=== PATIENT | female | born 1940 | race Caucasian/White ===

== ENCOUNTER 2016-03-31 10:59 | Emergency (ER) | payer MEDICARE ==
[2016-03-31 11:16] VITALS: BP 117/55
[2016-03-31] MEDS ORDERED: Albuterol 2.5 MG/3 ML NEB.SOL* (0.083%) INH ONE (11:36)
--- NOTE | 2016-03-31 12:07 | RAD ---
Indication: Dyspnea. Comparison is made with previous exam dated March 19, 2013. 2 views of the chest including dual energy PA views demonstrates hyperinflated lung roberts. No evidence of alveolar consolidation is noted. Again noted is deformity of the left chest wall with old left seventh rib fracture unchanged from previous exam IMPRESSION: Hyperinflated lung roberts without evidence of active cardiopulmonary disease.
--- NOTE | 2016-03-31 13:42 | UC ---
Kike Campos Adam, scribed for Any Khan MD on 03/31/16 at 1132 . Shortness of Breath HPI - HPI Summary HPI Summary: Pt is a 75 year old female presenting with SOB. She also reports a cough with associated CP for approximately 1 week. She has a Hx of lung cancer and COPD but she is not on o2 at home. She states that she was on o2 at one point but then was able to come off of it. She also reports cough, chills and states that she has not been eating normally and has lost 7 pounds. She has been having rhinorrhea and WESLEY's behind the right eye and sometimes left eye. No epistaxis or dental pain. No CP, abdominal pain, N/V/D, dysuria, hematuria, or rashes. - History of Current Complaint Chief Complaint: UCRespiratory Stated Complaint: COUGH,FATIGUE Hx Obtained From: Patient Onset/Duration: Gradual Onset, Lasting Days, Still Present Timing: Constant Current Severity: Moderate Dyspnea At: Rest Aggrevating Factors: Nothing Alleviating Factors: Nothing Associated Signs & Symptoms: Positive: Chest Pain w/Cough - Allergy/Home Medications Allergies/Adverse Reactions: Allergies Allergy/AdvReac Type Severity Reaction Status Date / Time No Known Allergies Allergy Verified 03/19/13 18:39 Home Medications: Home Medications Omeprazole CAP* [Prilosec CAP* 20 MG] 20 mg PO DAILY 03/31/16 [History Confirmed 03/31/16] PMH/Surg Hx/FS Hx/Imm Hx Endocrine History Of: Reports: Thyroid Disease Denies: Diabetes Cardiovascular History Of: Reports: Cardiac Disorders - angina, Hypertension Respiratory History Of: Reports: COPD Denies: Asthma GI/ History Of: Denies: Ulcer Cancer History Of: Reports: Lung Cancer - Bilateral, Breast Cancer - Surgical History Surgical History: Yes Surgery Procedure, Year, and Place: BREAST SURGERY. HYSTERECTOMY. BILATERAL LOBECTOMY - Family History Known Family History: Positive: Cardiac Disease - [place], Other - Suicide - Social History Occupation: Retired Lives: With Family Alcohol Use: None Substance Use Type: None Smoking Status (MU): Former Smoker Review of Systems Constitutional: Negative Respiratory: Shortness Of Breath, Cough Cardiovascular: Chest Pain - With cough All Other Systems Reviewed And Are Negative: Yes Physical Exam Triage Information Reviewed: Yes Appearance: No Pain Distress, Well-Nourished, Other: - [place] color Vital Signs: Initial Vital Signs Temp 97.8 F 03/31/16 11:09 Pulse 77 03/31/16 11:09 Resp 24 03/31/16 11:09 BP 117/55 03/31/16 11:09 Pulse Ox 90 03/31/16 11:09 Eyes: Positive: Conjunctiva Clear, Other: - Clear corneas ENT: Positive: Pharynx normal - No purulence, Other: - Normal TM's and canals, no discharge. Negative: Pharyngeal erythema, Nasal drainage, TM red, Tonsillar swelling, Tonsillar exudate Dental Exam: Other - Upper and lower dentures. Neck: Positive: Supple, Nontender, Other: - FROM, no crepitus, no JVD, no adenopathy. Respiratory: Positive: Chest non-tender, Other: - Decreased breath sounds, right more than left. Both bases very decreased.. Negative: Rhonchi, Wheezing Cardiovascular: Positive: Other: - Systolic heart murmur, heard best from the pulmonic area. Abdomen Description: Positive: Nontender, Other: - Liver edge about 1.5 cm below right costal margin.. Negative: Bruit, CVA Tenderness (R), CVA Tenderness (L) Bowel Sounds: Positive: Present, Other: - Normoactive Musculoskeletal: Positive: Strength Intact, ROM Intact, No Edema Neurological: Positive: Alert, Muscle Tone Normal, Other: - Oriented x3. Normal DTR's and normal cranial nerves. Psychological: Positive: Normal Response To Family, Age Appropriate Behavior Skin: Negative: rashes, significant lesion(s) Diagnostics - Laboratory Diagnostic Studies Completed/Ordered: Chest X-Ray - IMPRESSION: Hyperinflated lung roberts without evidence of active cardiopulmonary disease. Re-Evaluation - Re-Evaluation First Eval Re-Evaluation Time: 12:36 Change: Improved - Marked improvement in air exchange after breathing treatment. Shortness of Breath Dx - Differential Dx/Diagnosis Provider Diagnoses: COPD exacerbation Discharge - Discharge Plan Condition: Stable Disposition: HOME Prescriptions: Cefdinir 300 mg PO BID #14 cap predniSONE TAB* [Deltasone TAB*] 30 mg PO DAILY #5 tab Patient Education Materials: COPD (Chronic Obstructive Pulmonary Disease) (ED) Referrals: [facility] PHYSICIAN REFERRAL [Outside] Additional Instructions: Follow up with [facility] Physician Referral. Use home oxygen at 2.5 liters continuous. Start the Qvar today and use the albuterol puffer as needed every 4 hours. Start prednisone today - take the full dose each morning. Start cefdinir today. Drink enough fluids to stay well hydrated. Use a humidifier. Call [facility] Physician Referral office today for an appointment as soon as possible. Go to emergency room if you develop chest pains or increasing shortness of breath. The documentation as recorded by the Kike jaime Adam accurately reflects the service I personally performed and the decisions made by me, Ayn Khan MD.
== END 2016-03-31 13:48 | disposition home or self-care (01) ==
LOC: UCEAST 10:59
DX: J44.1 Chronic obstructive pulmonary disease with (acute) exacerbation (principal); Z85.118 Personal history of other malignant neoplasm of bronchus and lung; Z85.3 Personal history of malignant neoplasm of breast; Z87.891 Personal history of nicotine dependence
CPT/HCPCS: 71020; 99203; G0463

== ENCOUNTER 2016-11-16 11:22 | Observation (INO) | payer MEDICARE ==
[2016-11-16] MEDS ORDERED: Albuterol/Ipratropium NEB.SOL* Albuterol 2.5 MG/Ipratropium 0.5 MG 3 ML INH ONE (11:37)
--- NOTE | 2016-11-16 11:54 | RAD ---
HISTORY: Shortness of breath, pneumonia, CHF COMPARISONS: March 31, 2016 VIEWS: 1: frontal portable view of the chest at 11:50 AM FINDINGS: LINES AND TUBES: None. CARDIOMEDIASTINAL SILHOUETTE: The cardiomediastinal silhouette is normal for portable technique. PLEURA: The costophrenic angles are sharp. No pleural abnormalities are noted. LUNG PARENCHYMA: There is hyperinflation. ABDOMEN: The upper abdomen is clear. There is no subphrenic gas. BONES AND SOFT TISSUES: No bone or soft tissue abnormalities are noted. IMPRESSION: HYPERINFLATION. NO ACTIVE CARDIOPULMONARY DISEASE.
[2016-11-16 12:25] LABS: Hematocrit 36 % (35-47); Hemoglobin 12.1 g/dl (12.0-16.0); Mean Corpuscular HGB Conc 34 g/dl (31-36); Mean Corpuscular Hemoglobin 29 pg (27-31); Mean Corpuscular Volume 86 fL (80-97); Mean Platelet Volume 7 um3 (7.4-10.4); Red Blood Count 4.17 10^6/ul (4.0-5.4); Red Cell Distribution Width 14 % (10.5-15); White Blood Count 9.4 10^3/ul (3.5-10.8)
[2016-11-16] MEDS ORDERED: methylPREDNISolone 125 MG* 2 ML VIAL IV ONE (12:46)
[2016-11-16 12:50] LABS: C Reactive Protein 1.5 mg/L (< 5.00); Calcium 9.4 mg/dL (8.6-10.3); EGFR Non-African American 97.2 (>60); Globulin 3.3 g/dL (2-4); Potassium 3.7 mmol/L (3.5-5.0); Total Bilirubin 0.5 mg/dL (0.2-1.0); Total Protein 7.3 g/dL (6.4-8.9)
--- NOTE | 2016-11-16 14:57 | ED ---
Sandra Campos Nilda, scribed for Heath Kendrick MD on 11/16/16 at 1206 . Shortness of Breath - HPI Summary HPI Summary: Pt is a 76 y/o F BIBA from her PCP's office who presents to ED c/o SOB. Sx have been present for multiple days, gradually worsening since onset, at its worst today. SOB is characterized as dyspnea at exertion. Administered 1 NTG and 324 mg ASA en route to [facility] ED by EMS. Sx aggravated by exertion, alleviated by NTG. Additionally c/o R lateral chest pain, described as being located in the rib cage for about 1 week and sight nonproductive cough. Denies wheezing, fever, chills. Only daily blood thinner is ASA. states that her PCP was concerned about VA and PE. PMHx VA 1996 and PNA last year. - History of Current Complaint Chief Complaint: EDShortnessOfBreath Time Seen by Provider: 11/16/16 11:39 Hx Obtained From: Patient Onset/Duration: Gradual Onset, Still Present, Worse Since - today Current Severity: Moderate Dyspnea At: Exertion Aggrevating Factors: Movement - Exertion Alleviating Factors: EMS Tx - NTG Associated Signs & Symptoms: Cough (Nonproductive), Chest Pain Unrelated to Cough - Right lateral chest pain "rib cage" - Allergy/Home Medications Allergies/Adverse Reactions: Allergies Allergy/AdvReac Type Severity Reaction Status Date / Time No Known Allergies Allergy Verified 03/19/13 18:39 Home Medications: Home Medications Albuterol HFA INHALER* [Ventolin HFA Inhaler*] 2 puff INH Q6HR PRN 11/16/16 [ History Confirmed 11/16/16] Ascorbic Acid TAB* [Vitamin C TAB*] 500 mg PO DAILY 11/16/16 [History Confirmed 11/16/16] Aspirin EC Low Dose* [Ecotrin EC Low Dose 81 MG*] 81 mg PO DAILY 11/16/16 [ History Confirmed 11/16/16] Citalopram TAB* [CeleXA TAB*] 20 mg PO DAILY 11/16/16 [History Confirmed ] Levothyroxine TAB* [Synthroid TAB*] 75 mcg PO QAM 11/16/16 [History Confirmed ] Metoprolol Succinate XL TAB* [Toprol XL TAB*] 50 mg PO DAILY 11/16/16 [History Confirmed 11/16/16] Simvastatin (NF) [Zocor (NF)] 40 mg PO BEDTIME 11/16/16 [History Confirmed 11/16] PMH/Surg Hx/FS Hx/Imm Hx Endocrine/Hematology History: Reports: Hx Thyroid Disease Denies: Hx Diabetes Cardiovascular History: Reports: Hx Hypertension Respiratory History: Reports: Hx Chronic Obstructive Pulmonary Disease (COPD), Hx Lung Cancer - Bilateral, Other Respiratory Problems/Disorders - HX LUNG AND BREAST CA Denies: Hx Asthma GI History: Denies: Hx Ulcer - Cancer History Cancer Type, Location and Year: left breast ca, lung ca 2005, 2006(bilateral lungs) - Surgical History Surgery Procedure, Year, and Place: BREAST SURGERY. HYSTERECTOMY. BILATERAL LOBECTOMY Infectious Disease History: Denies: Hx Hepatitis, Hx Human Immunodeficiency Virus (HIV), Traveled Outside the [place] in Last 30 Days - Family History Known Family History: Positive: Cardiac Disease - [place], Other - Suicide - Social History Alcohol Use: None Substance Use Type: Reports: None Smoking Status (MU): Former Smoker Review of Systems Negative: Fever, Chills Positive: Chest Pain - Right lateral "rib cage" pain Positive: Shortness Of Breath, Cough - nonproductive, Other - Negative: wheezing All Other Systems Reviewed And Are Negative: Yes Physical Exam - Summary Physical Exam Summary: The patient is well-nourished in moderate respiratory distress. The skin is warm and dry and skin color reflects adequate perfusion. She has decreased skin turgor. HEENT: The head is normocephalic and atraumatic. The pupils are equal and reactive. The conjunctivae are clear and without drainage. Nares are patent and without drainage. Mouth reveals dry mucous membranes and the throat is without erythema and exudate. The external ears are intact. The ear canals are patent and without drainage. The tympanic membranes are intact. Neck is supple with full range of motion and non-tender. There is no neck vein distension. Respiratory: Chest is non-tender. Lungs are clear to auscultation and breath sounds are diminished. She has retractions with no wheezing, rales or rhonchi. Cardiovascular: Hear is regular rate and rhythm. There is no murmur or rub auscultated. Pulses are symmetrical and equal. Abdomen: The abdomen is soft and non-tender. There are normal bowel sounds heard in all four quadrants and there is no organomegaly palpated. Musculoskeletal: There is no back pain noted. Extremities are non-tender with full range of motion. There is capillary refill of 3 seconds. There is pitting edema in the lower extremities with no calf tenderness elicited. Neurological: Patient is alert and oriented to person, place and time. The patient has symmetrical motor strength in all four extremities. Cranial nerves are grossly intact. Psychiatric: The patient has an appropriate affect and does not exhibit any anxiety or depression. Triage Information Reviewed: Yes Vital Signs On Initial Exam: Initial Vitals Temp Pulse Resp BP Pulse Ox 98.4 F 58 22 137/117 99 11/16/16 11:34 11/16/16 11:34 11/16/16 11:34 11/16/16 11:34 11/16/16 11:34 Vital Signs Reviewed: Yes Diagnostics - Vital Signs Vital Signs Temp Pulse Resp BP Pulse Ox 11/16/16 11:51 58 20 10 11/16/16 11:34 98.4 F 58 22 137/117 99 - Laboratory Lab Results: Lab Results 11/16/16 11/16/16 11/16/16 Range/Units 12:15 12:15 12:15 WBC 9.4 (3.5-10.8) 10^3/ul RBC 4.17 (4.0-5.4) 10^6/ul Hgb 12.1 (12.0-16.0) g/dl Hct 36 (35-47) % MCV 86 (80-97) fL MCH 29 (27-31) pg MCHC 34 (31-36) g/dl RDW 14 (10.5-15) % Plt Count 223 (150-450) 10^3/ul MPV 7 L (7.4-10.4) um3 Neut % (Auto) 58.5 (38-83) % Lymph % (Auto) 30.9 (25-47) % Tama % (Auto) 8.0 (1-9) % Eos % (Auto) 2.3 (0-6) % Baso % (Auto) 0.3 (0-2) % Absolute Neuts (auto) 5.5 (1.5-7.7) 10^3/ul Absolute Lymphs (auto) 2.9 (1.0-4.8) 10^3/ul Absolute Monos (auto) 0.7 (0-0.8) 10^3/ul Absolute Eos (auto) 0.2 (0-0.6) 10^3/ul Absolute Basos (auto) 0 (0-0.2) 10^3/ul Absolute Nucleated RBC 0 10^3/ul Nucleated RBC % 0 Sodium 139 (133-145) mmol/L Potassium 3.7 (3.5-5.0) mmol/L Chloride 103 (101-111) mmol/L Carbon Dioxide 29 (22-32) mmol/L Anion Gap 7 (2-11) mmol/L BUN 9 (6-24) mg/dL Creatinine 0.60 (0.51-0.95) mg/dL Est GFR ( Amer) 125.0 (>60) Est GFR (Non-Af Amer) 97.2 (>60) BUN/Creatinine Ratio 15.0 (8-20) Glucose 87 (70-100) mg/dL Lactic Acid (0.5-2.0) mmol/L Calcium 9.4 (8.6-10.3) mg/dL Total Bilirubin 0.50 (0.2-1.0) mg/dL AST 19 (13-39) U/L ALT 11 (7-52) U/L Alkaline Phosphatase 61 (34-104) U/L Troponin I 0.00 (<0.04) ng/mL C-Reactive Protein 1.50 (< 5.00) mg/L B-Natriuretic Peptide 314 H ( - 100) pg/mL Total Protein 7.3 (6.4-8.9) g/dL Albumin 4.0 (3.2-5.2) g/dL Globulin 3.3 (2-4) g/dL Albumin/Globulin Ratio 1.2 (1-3) 11/16/16 Range/Units 12:15 WBC (3.5-10.8) 10^3/ul RBC (4.0-5.4) 10^6/ul Hgb (12.0-16.0) g/dl Hct (35-47) % MCV (80-97) fL MCH (27-31) pg MCHC (31-36) g/dl RDW (10.5-15) % Plt Count (150-450) 10^3/ul MPV (7.4-10.4) um3 Neut % (Auto) (38-83) % Lymph % (Auto) (25-47) % Tama % (Auto) (1-9) % Eos % (Auto) (0-6) % Baso % (Auto) (0-2) % Absolute Neuts (auto) (1.5-7.7) 10^3/ul Absolute Lymphs (auto) (1.0-4.8) 10^3/ul Absolute Monos (auto) (0-0.8) 10^3/ul Absolute Eos (auto) (0-0.6) 10^3/ul Absolute Basos (auto) (0-0.2) 10^3/ul Absolute Nucleated RBC 10^3/ul Nucleated RBC % Sodium (133-145) mmol/L Potassium (3.5-5.0) mmol/L Chloride (101-111) mmol/L Carbon Dioxide (22-32) mmol/L Anion Gap (2-11) mmol/L BUN (6-24) mg/dL Creatinine (0.51-0.95) mg/dL Est GFR ( Amer) (>60) Est GFR (Non-Af Amer) (>60) BUN/Creatinine Ratio (8-20) Glucose (70-100) mg/dL Lactic Acid 1.0 (0.5-2.0) mmol/L Calcium (8.6-10.3) mg/dL Total Bilirubin (0.2-1.0) mg/dL AST (13-39) U/L ALT (7-52) U/L Alkaline Phosphatase (34-104) U/L Troponin I (<0.04) ng/mL C-Reactive Protein (< 5.00) mg/L B-Natriuretic Peptide ( - 100) pg/mL Total Protein (6.4-8.9) g/dL Albumin (3.2-5.2) g/dL Globulin (2-4) g/dL Albumin/Globulin Ratio (1-3) Result Diagrams: 11/16/16 12:15 11/16/16 12:15 Lab Statement: Any lab studies that have been ordered have been reviewed, and results considered in the medical decision making process. - Radiology CXR Xray Interpretation: No Acute Changes - HYPERINFLATION. NO ACTIVE CARDIOPULMONARY DISEASE. ED physician reviewed radiology report and agrees. Radiology Interpretation Completed By: Radiologist - EKG 1150 Cardiac Rate: Bradycardia - 59 bpm EKG Rhythm: Sinus Bradycardia ST Segment: Normal EKG Interpretation: Normal axis, prolonged QT interval Re-Evaluation - Re-Evaluation First Eval Re-Evaluation Time: 13:59 Comment: Discussed results and course of treatment, including admission plan. Course/Dx - Course Assessment/Plan: Pt is a 76 y/o F BIBA from her PCP's office who presents to ED c/o SOB for multiple days, gradually worsening, at its worst today. SOB is characterized as dyspnea at exertion. Administered 1 NTG and 324 mg ASA en route to [facility] ED by EMS. Sx aggravated by exertion, alleviated by NTG. Additionally c/o R lateral chest pain, described as being located in the rib cage for about 1 week and sight nonproductive cough. Denies wheezing, fever, chills. Only daily blood thinner is ASA. states that her PCP was concerned about VA and PE. PMHx VA 1996 and PNA last year. CXR reveals hyperinflation with no acute pathology. EKG is sinus rhythm with a prolonged QT interval. In the ED course, pt received Duoneb and Solu-Medrol. Discussed care of pt with Dr. Garcia who accepts pt for admission. She will be admitted with Dx of acute dyspnea and COPD. She is agreeable with this plan. Elevated BP noted and advised to f/u with PCP. - Diagnoses Differential Diagnosis/HQI/PQRI: Positive: Bronchitis, CHF, COPD Exacerbation, VA, Pneumonia Provider Diagnoses: Acute dyspnea, COPD (chronic obstructive pulmonary disease) - Physician Notifications Discussed Care of Patient With: Chad Garcia Time Discussed With Above Provider: 13:37 Instructed by Provider To: Other - Accepts pt for admission Discharge - Discharge Plan Condition: Stable Disposition: ADMITTED TO [facility] Referrals: Sarahy Jameson, HEALTH EVALUATOR [Primary Care Provider] - The documentation as recorded by the Sandra jaime Nilda accurately reflects the service I personally performed and the decisions made by me, Heath Kendrick MD.
[2016-11-16] MEDS ORDERED: Iohexol 350* (CONTRAST) 500 ML MDV IV ONE (15:05)
--- NOTE | 2016-11-16 15:26 | RAD ---
INDICATION: Chest pain. Short of breath. Evaluate for pulmonary embolus. COMPARISON: CTA chest September 03, 2010 TECHNIQUE: Axial source images were obtained from the thoracic inlet to the hemidiaphragms following administration of 51 mL cc Omnipaque 350. CT angiographic technique was utilized. Coronal and sagittal reconstructed images were acquired. CHEST FINDINGS: Neck/thyroid: The visualized neck to include the thyroid appear normal. Chest wall: There are no acute abnormalities of the bony thorax or chest wall. There is no supraclavicular, infraclavicular, or axillary lymphadenopathy. Lungs : There are no pulmonary parenchymal masses or acute infiltrates. There are emphysematous changes with biapical scarring. There are no endobronchial lesions. Cardiomediastinal structures: There is no CT evidence of acute pulmonary embolic disease. The heart is normal in size. There is no pericardial effusion. There is no evidence of aortic aneurysm or dissection. There are sclerotic changes. There is no mediastinal or hilar adenopathy. The esophagus appears normal. Pleura : There are no pleural-based masses or effusions. Other: There is subcentimeter left hepatic hypodensity which is likely incidental cyst. IMPRESSION: NO CT EVIDENCE OF ACUTE PULMONARY EMBOLIC DISEASE. EMPHYSEMATOUS CHANGE
[2016-11-16] MEDS ORDERED: Albuterol 2.5 MG/3 ML NEB.SOL* (0.083%) INH PRN (15:34)
[2016-11-16] MEDS ORDERED: Ondansetron INJ* 2 MG/ML VIAL IV PRN (15:51)
[2016-11-16] MEDS ORDERED: Acetaminophen TAB* 325 MG PO PRN (15:51)
[2016-11-16] MEDS ORDERED: Morphine INJ* 4 MG/ML 1 ML CARPUJECT IV PRN (15:52)
[2016-11-16] MEDS: Enoxaparin(*) 40 MG/0.4 ML SYR SUBCUT SCH (17:06)
[2016-11-16 17:26] LABS: TSH (Thyroid Stimulating Horm) 0.18 mcIU/mL (0.34-5.60)
[2016-11-16] MEDS: Albuterol/Ipratropium NEB.SOL* Albuterol 2.5 MG/Ipratropium 0.5 MG 3 ML INH SCH ×2 (19:44→23:01)
[2016-11-16] MEDS: Mometasone/Formoter 100/5 MDI INH SCH (19:44)
[2016-11-16] MEDS: Atorvastatin* 20 MG TAB PO SCH (20:51)
--- NOTE | 2016-11-16 22:10 | HP ---
ATTENDING PHYSICIAN ADDENDUM NOW INCLUDED ON THIS REPORT CC: Dr. Martinez * MEDICINE HISTORY AND PHYSICAL: DATE OF ADMISSION: 11/16/16 PROVIDER: Monica Mcelroy NP ATTENDING PHYSICIAN: Dr. Sindi Jasso * (as dictated by Monica Mcelroy NP) PRIMARY CARE PROVIDER: Dr. Rosanne Martinez. CHIEF COMPLAINT: Shortness of breath with chest pain. HISTORY OF PRESENT ILLNESS: This is a 76-year-old female, who presents to the ER today after being referred to the hospital by her primary care provider with concern for chest pain, increasing dyspnea, and fatigue x1 week. The patient states that she started having pain along her left rib cage and activity intolerance approximately 1 week ago. She is having increasing fatigue since then. She described the pain as starting in her left arm, radiating up into her chest and down the left arm. She does have oxygen at home that she uses at nighttime and she has been utilizing the oxygen to help treat her shortness of breath. The dyspnea has progressed to a point that she has difficulty speaking complete sentences. She describes constant chest discomfort. She cannot site any true alleviating factors, but states that the pain and the dyspnea is aggravated by exercise and physical activity. She denies any leg swelling, orthopnea, cough, fever. She denies any cold or flu symptoms. Her only sick exposure includes her great grandson who had strep throat, but she denies any symptoms consistent with strep throat including sore throat and fever. The patient was evaluated by her primary care provider, who had concern for potential VA or pulmonary embolus. Here in the ER, the patient's EKG upon arrival shows no ST or T-wave changes concerning for an acute VA or ischemia. Her first troponin has been 0. Her BNP is 314. The patient's chest x-ray shows no acute pathology and a CTA of her chest is negative for pulmonary embolus. PAST MEDICAL HISTORY: Significant for: 1. Coronary artery disease. 2. Hypothyroidism. 3. Hyperlipidemia. 4. History of lung cancer. 5. History of breast cancer. 6. COPD. 7. Depression. 8. Calcifying shoulder tendinitis. 9. Hypertension. 10. Type 2 diabetes. 11. History of VA in 1996. 12. Peripheral artery disease. 13. Carotid artery disease. 14. GERD. 15. Osteopenia. 16. Urge incontinence. HOME MEDICATIONS: 1. Simvastatin 40 mg at bedtime. 2. Ascorbic acid 500 mg daily. 3. Oxybutynin XL 10 mg daily. 4. Aspirin 81 mg daily. 5. Omeprazole 40 mg daily. 6. Metoprolol succinate XL 50 mg daily. 7. Levothyroxine 75 mcg q.a.m. 8. Citalopram 20 mg daily. 9. Albuterol inhaler 2 puffs inhaled q.6 hours p.r.n. ALLERGIES: No known drug allergies. FAMILY HISTORY: The patient reports a history of diabetes, heart disease, hypertension, and CVA in her mother. Her father of suicide at age 44. She has a sister and brother who have history of diabetes, heart disease, and hypertension. SOCIAL HISTORY: The patient is a former smoker. She quit in 2006 and had smoked approximately 2 packs a day for at least 56 years. She is a very rare alcohol drinker. She denies history of illicit drug use. 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 She lives at home with her and is helping to raise her great grandson. Her , Dallas Pearce, and her daughter, Mala Dye are her healthcare proxies. REVIEW OF SYSTEMS: As per HPI, all those not mentioned are negative. PHYSICAL EXAMINATION GENERAL: This is a very pleasant older female patient, who is lying in the ED stretcher. She does become dyspneic while speaking and has to stop and take pauses due to shortness of breath. VITAL SIGNS: Temperature 98.4, heart rate 83, respiratory rate 22, blood pressure 133/50, and O2 saturation is 99% on 4 L nasal cannula. HEENT: Head is atraumatic, normocephalic. Face is symmetrical. Pupils are equal, round, and reactive to light. Oral mucosa appears moist. There is no oropharyngeal erythema or exudate. NECK: Supple. No JVD noted. No lymphadenopathy appreciated. LUNGS: There is some expiratory wheezing present. Lung sounds are diminished throughout and there are right basilar crackles noted. CARDIAC: S1 and S2 heart sounds. Regular rate and rhythm. The patient has a loud systolic murmur that is best heard along the upper sternal border. There is no peripheral edema. ABDOMEN: Soft, nontender, and nondistended. Bowel sounds present times all 4 quadrants. MUSCULOSKELETAL: No clubbing or cyanosis noted. The patient has full range of motion in all extremities. NEURO: Cranial nerves II through XII are grossly intact. The patient moves all extremities. No focal deficits noted. Speech is clear. Sensation is intact to light touch throughout all extremities. PSYCH: She is alert and oriented x3. Affect is appropriate. SKIN: Appears grossly intact. DIAGNOSTIC STUDIES/LAB DATA: CBC: WBC 9.4, hemoglobin 12.1, hematocrit 36, platelet count 223. CMP: Sodium 129, potassium 3.7, chloride 103, carbon dioxide 29, BUN 9, creatinine 0.6, glucose 87, lactic acid 1.0, calcium 9.4. Total bilirubin 0.5, AST 19, ALT 11. Troponin 0. CRP 1.5. BNP 314. Albumin is 4.0. Chest x-ray shows hyperinflation. No active cardiopulmonary disease. EKG as above. CT of the chest and thorax shows no CT evidence of acute pulmonary embolic disease and emphysematous change. ASSESSMENT AND PLAN: This is a 76-year-old female with a history significant for chronic obstructive pulmonary disease, coronary artery disease, who presents today with shortness of breath and activity intolerance. She will be admitted as observation patient to the medicine telemetry floor. Plan is as follows: 1. Shortness of breath. Suspect this is, in part, due to chronic obstructive pulmonary disease exacerbation and perhaps congestive heart failure. We will continue the patient on nebulizer treatments as well as steroids. The patient was easily on Vapotherm in the ED, but was able to be weaned off the Vapotherm to nasal cannula. I do not think the patient needs antibiotics at this time as she is not febrile and does not have any significant cough. I do appreciate some mild wheezing. She does not appear to be fluid overloaded. Plan to check an echocardiogram to evaluate cardiac function as well as continued supportive measures for chronic obstructive pulmonary disease, which will include nebulizers and steroids and continue to monitor. 2. Chest pain. The patient has no ST or T-wave ischemic changes on EKG. Her initial troponin is negative. We will repeat this x2 more troponins, monitor the patient on telemetry, suspect that the chest pain may be secondary to her respiratory status, and we will continue to follow. Again, echocardiogram is ordered. 3. History of coronary artery disease. Continue aspirin, statin, and metoprolol. 4. History of hypothyroidism. We will check a TSH given the patient's chest pain, continue to hold levothyroxine. 5. History of depression. Continue citalopram. 6. History of urge incontinence. Continue oxybutynin. 7. Chronic obstructive pulmonary disease, as per above, we will continue the patient on steroids and nebulizer treatments. We will hold her albuterol inhaler and place her on nebulizer treatments. The patient is also started on Dulera while here in the hospital. 8. DVT prophylaxis. The patient is rated highest risk. She is on subcu Lovenox. 9. Code status. The patient is a DNR. MOLST has been completed on admission. TIME SPENT: Time spent on this admission was approximately 60 minutes, more than half the time was spent [id number] with the patient obtaining history and physical, performing physical examination, reviewing the plan of care. Plan of care was also reviewed with my attending, Dr. Jasso, who is in agreement. MONICA MCELROY NP ADDENDUM: Ms. Pearce is a 76-year-old female with history of COPD, who presents complaining of dyspnea and appears to be in COPD exacerbation. Her CT angiogram was negative for PE. The patient is going to be admitted to the hospital for further treatment. Her TSH is slightly low and her Synthroid is going to be adjusted. For further details of patient's presentation and plan, please history and physical dictated by Monica Mcelroy on 11/16/16 with which I agree. SINDI JASSO MD [id number]/CPS #: [id number]/CPS #: [id number] MYLES
--- NOTE | 2016-11-17 00:05 | HP ---
HISTORY AND PHYSICAL: * ADDENDUM: Ms. Pearce is a 76-year-old female with history of COPD, who presents complaining of dyspnea and appears to be in COPD exacerbation. Her CT angiogram was negative for PE. The patient is going to be admitted to the hospital for further treatment. Her TSH is slightly low and her Synthroid is going to be adjusted. For further details of patient's presentation and plan, please history and physical dictated by Nata Mcginnis on 11/16/16 with which I agree. [id number]/[facility] #: [id number] MTDD
[2016-11-17] MEDS: Albuterol/Ipratropium NEB.SOL* Albuterol 2.5 MG/Ipratropium 0.5 MG 3 ML INH SCH ×6 (03:20→23:22)
[2016-11-17 05:06] LABS: Hematocrit 34 % (35-47); Hemoglobin 11.3 g/dl (12.0-16.0); Mean Corpuscular HGB Conc 34 g/dl (31-36); Mean Corpuscular Hemoglobin 29 pg (27-31); Mean Corpuscular Volume 85 fL (80-97); Mean Platelet Volume 7 um3 (7.4-10.4); Red Blood Count 3.92 10^6/ul (4.0-5.4); Red Cell Distribution Width 14 % (10.5-15); White Blood Count 9.5 10^3/ul (3.5-10.8)
[2016-11-17 05:18] LABS: BUN/Creatinine Ratio 21.4 (8-20); Calcium 9.5 mg/dL (8.6-10.3); EGFR African American 135.4 (>60); EGFR Non-African American 105.3 (>60); Potassium 4.1 mmol/L (3.5-5.0)
[2016-11-17] MEDS: Levothyroxine TAB* 50 MCG TAB PO SCH (05:50)
[2016-11-17] MEDS ORDERED: Levothyroxine TAB* 75 MCG TAB PO SCH (06:00)
[2016-11-17] MEDS: Omeprazole CAP* 20 MG PO SCH (08:18)
[2016-11-17] MEDS: Mometasone/Formoter 100/5 MDI INH SCH ×2 (08:26→20:04)
[2016-11-17] MEDS: Citalopram TAB* 20 MG PO SCH (08:58)
[2016-11-17] MEDS: Metoprolol Succinate XL TAB* 50 MG PO SCH (08:58)
[2016-11-17] MEDS: predniSONE TAB* 20 MG PO SCH (08:58)
[2016-11-17] MEDS: Aspirin EC Low Dose* 81 MG TAB.EC PO SCH (08:58)
[2016-11-17] MEDS: Ascorbic Acid TAB* 500 MG PO SCH (08:58)
[2016-11-17] MEDS: Oxybutynin XL TAB* 5 MG PO SCH (09:01)
--- NOTE | 2016-11-17 12:13 | PN ---
Subjective Date of Service: 11/17/16 Interval History: Patient seen and examined at bedside. Reports improvement in breathing and better activity tolerance today. Denies fever/chills, CP, n/v. Able to speak in more full sentences without shortness of breath. Family History: Unchanged from Admission Social History: Unchanged from Admission Past Medical History: Unchanged from Admission Objective Active Medications: Acetaminophen (Tylenol Tab*) 650 mg PO Q4H PRN PRN Reason: FEVER/PAIN Albuterol (Ventolin 2.5 Mg/3 Ml Neb.Melita*) 2.5 mg INH Q2H PRN PRN Reason: SOB/WHEEZING Albuterol/Ipratropium (Duoneb (Albuterol 2.5 Mg/Ipratropium 0.5 Mg)) 1 neb INH [id number] AWAKE [facility] Last Admin: 11/17/16 11:40 Dose: 1 neb Ascorbic Acid (Vitamin C Tab*) 500 mg PO DAILY [facility] Last Admin: 11/17/16 08:58 Dose: 500 mg Aspirin (Aspirin Ec Low Dose*) 81 mg PO DAILY [facility] Last Admin: 11/17/16 08:58 Dose: 81 mg Atorvastatin Calcium (Lipitor*) 20 mg PO BEDTIME [facility] Last Admin: 11/16/16 20:51 Dose: 20 mg Citalopram Hydrobromide (Celexa Tab*) 20 mg PO DAILY [facility] Last Admin: 11/17/16 08:58 Dose: 20 mg Enoxaparin Sodium (Lovenox(*)) 40 mg SUBCUT Q24H [facility] Last Admin: 11/16/16 17:06 Dose: 40 mg Levothyroxine Sodium (Synthroid Tab*) 50 mcg PO QAM@0600 [facility] Last Admin: 11/17/16 05:50 Dose: 50 mcg Metoprolol Succinate (Toprol Xl Tab*) 50 mg PO DAILY [facility] Last Admin: 11/17/16 08:58 Dose: 50 mg Mometasone Furoate/Formoterol Fumar (Dulera 100/5 Mdi*) 2 puff INH BID [facility] Last Admin: 11/17/16 08:26 Dose: 2 puff Morphine Sulfate (Morphine Inj (Syringe)*) 4 mg IV Q4H PRN PRN Reason: PAIN Omeprazole (Prilosec Cap*) 40 mg PO DAILY@0730 [facility] Last Admin: 11/17/16 08:18 Dose: 40 mg Ondansetron HCl (Zofran Inj*) 4 mg IV Q6H PRN PRN Reason: NAUSEA Oxybutynin Chloride (Ditropan Xl Tab*) 10 mg PO DAILY [facility] Last Admin: 11/17/16 09:01 Dose: 10 mg Prednisone (Deltasone Tab*) 40 mg PO DAILY [facility] Last Admin: 11/17/16 08:58 Dose: 40 mg Vital Signs 11/16/16 11/16/16 11/16/16 15:54 19:21 19:45 Temperature 98.2 F 97.3 F Pulse Rate 71 63 88 Respiratory 22 20 18 Rate Blood Pressure 140/47 102/71 (mmHg) O2 Sat by Pulse 92 99 99 Oximetry 11/16/16 11/17/16 11/17/16 23:30 02:54 08:20 Temperature 97.6 F 98.1 F Pulse Rate 65 64 74 Respiratory 16 16 15 Rate Blood Pressure 113/44 112/52 (mmHg) O2 Sat by Pulse 98 98 100 Oximetry 11/17/16 11/17/16 11/17/16 08:55 11:16 11:40 Temperature 98.3 F Pulse Rate 75 84 Respiratory 20 Rate Blood Pressure 110/65 117/42 (mmHg) O2 Sat by Pulse 99 96 Oximetry Oxygen Devices in Use Now: Nasal Cannula Appearance: Thin, older female, OOB to chair, in NAD Eyes: No Scleral Icterus Ears/Nose/Mouth/Throat: Clear Oropharnyx, Mucous Membranes Moist Neck: NL Appearance and Movements; NL JVP Respiratory: Symmetrical Chest Expansion and Respiratory Effort, - - diminished throughout, prolonged exp phase Cardiovascular: NL Sounds; No Murmurs; No JVD, RRR Abdominal: NL Sounds; No Tenderness; No Distention Extremities: No Edema, No Clubbing, Cyanosis Skin: No Rash or Ulcers Neurological: Alert and Oriented x 3, NL Muscle Strength and Tone Lines/Tubes/Other Access: Clean, Dry and Intact Peripheral IV Nutrition: Taking PO's Result Diagrams: 11/17/16 04:35 11/17/16 04:35 Additional Lab and Data: Lab Results 11/16/16 11/16/16 11/16/16 Range/Units 12:15 12:15 12:15 WBC 9.4 (3.5-10.8) 10^3/ul RBC 4.17 (4.0-5.4) 10^6/ul Hgb 12.1 (12.0-16.0) g/dl Hct 36 (35-47) % MCV 86 (80-97) fL MCH 29 (27-31) pg MCHC 34 (31-36) g/dl RDW 14 (10.5-15) % Plt Count 223 (150-450) 10^3/ul MPV 7 L (7.4-10.4) um3 Neut % (Auto) 58.5 (38-83) % Lymph % (Auto) 30.9 (25-47) % Colbert % (Auto) 8.0 (1-9) % Eos % (Auto) 2.3 (0-6) % Baso % (Auto) 0.3 (0-2) % Absolute Neuts (auto) 5.5 (1.5-7.7) 10^3/ul Absolute Lymphs (auto) 2.9 (1.0-4.8) 10^3/ul Absolute Monos (auto) 0.7 (0-0.8) 10^3/ul Absolute Eos (auto) 0.2 (0-0.6) 10^3/ul Absolute Basos (auto) 0 (0-0.2) 10^3/ul Absolute Nucleated RBC 0 10^3/ul Nucleated RBC % 0 Sodium 139 (133-145) mmol/L Potassium 3.7 (3.5-5.0) mmol/L Chloride 103 (101-111) mmol/L Carbon Dioxide 29 (22-32) mmol/L Anion Gap 7 (2-11) mmol/L BUN 9 (6-24) mg/dL Creatinine 0.60 (0.51-0.95) mg/dL Est GFR ( Amer) 125.0 (>60) Est GFR (Non-Af Amer) 97.2 (>60) BUN/Creatinine Ratio 15.0 (8-20) Glucose 87 (70-100) mg/dL Lactic Acid (0.5-2.0) mmol/L Calcium 9.4 (8.6-10.3) mg/dL Total Bilirubin 0.50 (0.2-1.0) mg/dL AST 19 (13-39) U/L ALT 11 (7-52) U/L Alkaline Phosphatase 61 (34-104) U/L Troponin I 0.00 (<0.04) ng/mL C-Reactive Protein 1.50 (< 5.00) mg/L B-Natriuretic Peptide 314 H ( - 100) pg/mL Total Protein 7.3 (6.4-8.9) g/dL Albumin 4.0 (3.2-5.2) g/dL Globulin 3.3 (2-4) g/dL Albumin/Globulin Ratio 1.2 (1-3) 11/16/16 Range/Units 12:15 WBC (3.5-10.8) 10^3/ul RBC (4.0-5.4) 10^6/ul Hgb (12.0-16.0) g/dl Hct (35-47) % MCV (80-97) fL MCH (27-31) pg MCHC (31-36) g/dl RDW (10.5-15) % Plt Count (150-450) 10^3/ul MPV (7.4-10.4) um3 Neut % (Auto) (38-83) % Lymph % (Auto) (25-47) % Colbert % (Auto) (1-9) % Eos % (Auto) (0-6) % Baso % (Auto) (0-2) % Absolute Neuts (auto) (1.5-7.7) 10^3/ul Absolute Lymphs (auto) (1.0-4.8) 10^3/ul Absolute Monos (auto) (0-0.8) 10^3/ul Absolute Eos (auto) (0-0.6) 10^3/ul Absolute Basos (auto) (0-0.2) 10^3/ul Absolute Nucleated RBC 10^3/ul Nucleated RBC % Sodium (133-145) mmol/L Potassium (3.5-5.0) mmol/L Chloride (101-111) mmol/L Carbon Dioxide (22-32) mmol/L Anion Gap (2-11) mmol/L BUN (6-24) mg/dL Creatinine (0.51-0.95) mg/dL Est GFR ( Amer) (>60) Est GFR (Non-Af Amer) (>60) BUN/Creatinine Ratio (8-20) Glucose (70-100) mg/dL Lactic Acid 1.0 (0.5-2.0) mmol/L Calcium (8.6-10.3) mg/dL Total Bilirubin (0.2-1.0) mg/dL AST (13-39) U/L ALT (7-52) U/L Alkaline Phosphatase (34-104) U/L Troponin I (<0.04) ng/mL C-Reactive Protein (< 5.00) mg/L B-Natriuretic Peptide ( - 100) pg/mL Total Protein (6.4-8.9) g/dL Albumin (3.2-5.2) g/dL Globulin (2-4) g/dL Albumin/Globulin Ratio (1-3) Assess/Plan/Problems-Billing Assessment: Ms. Pearce is a 76 yo female with a PMH significant for lung cancer s/p lobectomies, chronic obstructive pulmonary disease, and coronary artery disease , who presented on 11/16 with shortness of breath and activity intolerance x 1 week. - Patient Problems (1) COPD (chronic obstructive pulmonary disease) Code(s): J44.9 - CHRONIC OBSTRUCTIVE PULMONARY DISEASE, UNSPECIFIED Comment: With exacerbation Patient has reported improvement in SOB following nebulizers and steroid Cont prednsione, nebulizers. Patient started on Dulera. (2) Chest pain Code(s): R07.9 - CHEST PAIN, UNSPECIFIED Comment: Trop negative x 3 Chest pain now resolved No ischemic changes, suspect secondary to resp distress CTA negative for PE Check echocardiogram to evaluate for cardiomyopathy (3) CAD (coronary artery disease) Code(s): I25.10 - ATHSCL HEART DISEASE OF [place] CORONARY ARTERY W/O ANG PCTRS Comment: Continue ASA, statin, metoprolol. (4) Hypothyroidism Code(s): E03.9 - HYPOTHYROIDISM, UNSPECIFIED Comment: TSH 0.18 Levothyroxine decreased from 75 mcg to 50 mcg. F/u thyroid studies in 6 weeks. (5) HLD (hyperlipidemia) Code(s): E78.5 - HYPERLIPIDEMIA, UNSPECIFIED Comment: Cont statin. (6) HTN (hypertension) Code(s): I10 - ESSENTIAL (PRIMARY) HYPERTENSION Comment: Normotensive Cont metoprolol. (7) GERD (gastroesophageal reflux disease) Code(s): K21.9 - GASTRO-ESOPHAGEAL REFLUX DISEASE WITHOUT ESOPHAGITIS Comment : Cont omeprazole. (8) Urge incontinence Code(s): N39.41 - URGE INCONTINENCE Comment: Cont oxybutinin. (9) DVT prophylaxis Comment: SQ Lovenox (10) DNR (do not resuscitate) Comment: MOLST completed on 11/16/16 Status and Disposition: OBV admit. D/c to home when medically stable.
--- NOTE | 2016-11-17 12:29 | ECHO ---
Patient: BERNIE KENDRICK [facility] Rec#: [id number] : 1940 Date: 11/17/2016 Age: 76y Height: 147.32 cm / 58.0 in Weight: 43.09 kg / 95.0 lbs Sex: F BSA: 1.33 Room#: 433 Admit Date#: 11/16/2016 Type: Inpatient Referring: Nata Mcginnis Reading: Mala Marx MD Fine Arts Chair: [facility] Transthoracic Echocardiogram Indication: CHF, dyspnea on exertion. BP: 112/52 HR: 63 Rhythm: NSR Findings History: HTN, former smoker, bilateral lung cancer, breast cancer, and PAD. Technical Comments: The study quality is fair. The study is technically limited due to poor parasternal windows. Completed at 0840. Left Ventricle: The left ventricular chamber size is normal. There is no left ventricular hypertrophy. Global left ventricular wall motion and contractility are within normal limits. There is normal left ventricular systolic function. The estimated ejection fraction is 55-60%. Abnormal left ventricular diastolic filling is observed, consistent with impaired relaxation. Left Atrium: The left atrial chamber size is normal. Right Ventricle: Moderator Band present. The right ventricular cavity size is normal. The right ventricular global systolic function is normal. Right Atrium: The right atrial cavity size is normal. Aortic Valve: The aortic valve is trileaflet. Mild aortic leaflet calcification is visualized. Systolic excursion of the aortic valve cusps is reduced. There is mild aortic regurgitation. There is moderate aortic stenosis. The mean gradient of the aortic valve is 21.68 mmHg. The aortic valve area, by peak velocities, is calculated at 1.53 cm2. The aortic valve area, by VTI's, is calculated at 1.41 cm2. Mitral Valve: There is mitral annular calcification. The mitral valve leaflets are moderately thickened. There is mild mitral regurgitation. There is no evidence of mitral stenosis. Tricuspid Valve: The tricuspid valve leaflets are normal. There is mild tricuspid regurgitation. The right ventricular systolic pressure is estimated at 24 mmHg. There is evidence that pulmonary hypertension may be underestimated. There is no tricuspid stenosis. Pulmonic Valve: The pulmonic valve appears normal. There is a trace pulmonic regurgitation. There is no pulmonic stenosis. Pericardium: There is no significant pericardial effusion. Aorta: There is no dilatation of the ascending aorta. There is no dilatation of the aortic arch. The aortic root is normal in size. There is plaque visualized in the descending aorta.seen on A4 view. Pulmonary Artery: The main pulmonary artery is not well visualized. Venous: The inferior vena cava appears normal in size. There is a greater than 50% respiratory change in the inferior vena cava dimension. Conclusions The left ventricular chamber size is normal. Global left ventricular wall motion and contractility are within normal limits. The estimated ejection fraction is 55-60%. Abnormal left ventricular diastolic filling is observed, consistent with impaired relaxation. The right ventricular global systolic function is normal. There is mild aortic regurgitation: small area on short axis view and no reversal of flow in the descending aorta. There is moderate aortic stenosis: mean gradient is 21.68 mmHg, the ALMAS by VTI is 1.41 cm2. There is mild mitral regurgitation. There is mild tricuspid regurgitation. The right ventricular systolic pressure is estimated at 24 mmHg, possibly underestimated. Compared with prior study of 06/23/09, ventricular function is stable, the is newly noted, the degree of AI previously moderate to severe. Measurements Name Value Normal Range RVIDd (AP) 2D 2.1 cm (0.9 - 2.6) RVDdMajor (2D) 2.8 cm (2.2 - 4.4) RAd ISD 4CH 3.8 cm (3.4 - 4.9) RA (A4C)W 3.2 cm (2.9 - 4.6) IVSd (2D) 0.9 cm (0.6 - 1) LVPWd (2D) 0.8 cm (0.6 - 1) LVIDd (2D) 4.2 cm (3.6 - 5.4) LVIDs (2D) 3 cm - LV FS (2D) 28 % (25 - 45) Aortic Annulus 1.4 cm (1.4 - 2.6) Ao root diameter (2D) 2.3 cm (2.1 - 3.5) Ascending Ao 2.4 cm (2.1 - 3.4) Aortic arch 1.9 cm (1.8 - 3.4) LA dimension (AP) 2D 2.9 cm (2.3 - 3.8) LAd ISD 4CH 4.4 cm (2.9 - 5.3) LA ISD 4CH W 4 cm (2.5 - 4.5) Name Value Normal Range LA ESV SP 4CH (A/L) 43 ml - LA ESV SP 2CH (A/L) 29 ml - LA ESV BP (A/L) 36 ml - LA ESV BP (A/L) index 27.03 ml/m2 - LA ESV SP 4CH (MOD) 40 ml - LA ESV SP 2CH (MOD) 29 ml - Name Value Normal Range MV E-wave Vmax 0.93 m/sec - MV deceleration time 368 msec - MV A-wave Vmax 1.13 m/sec - MV E:A ratio 0.82 ratio - LV septal e' Vmax 0.06 m/sec - LV lateral e' Vmax 0.05 m/sec - LV E:e' septal ratio 15.5 ratio - LV E:e' lateral ratio 18.6 ratio - Name Value Normal Range AV Vmax 3.04 m/sec - AV VTI 78.9 cm - AV peak gradient 37 mmHg - AV mean gradient 21.68 mmHg - LVOT diameter 2 cm - LVOT Vmax 1.48 m/sec - LVOT VTI 35.46 cm - LVOT peak gradient 8.79 mmHg - LVOT mean gradient 4.64 mmHg - DOI (VTI) 0.45 ratio - ALMAS (continuity Vmax) 1.53 cm2 - ALMAS (continuity VTI) 1.41 cm2 - AR PHT 418.4 msec - AR peak gradient 51.7 mmHg - JESUS MANUEL Vmax 0.94 m/sec - Name Value Normal Range TR Vmax 2.3 m/sec - TR peak gradient 21 mmHg - RAP 3 mmHg - RVSP 24 mmHg - IVC diameter 1.2 cm - Name Value Normal Range PV Vmax 0.93 m/sec - PV peak gradient 3.44 mmHg -
[2016-11-17] MEDS: Enoxaparin(*) 40 MG/0.4 ML SYR SUBCUT SCH (15:33)
[2016-11-17] MEDS: Atorvastatin* 20 MG TAB PO SCH (20:23)
[2016-11-18] MEDS: Albuterol/Ipratropium NEB.SOL* Albuterol 2.5 MG/Ipratropium 0.5 MG 3 ML INH SCH ×2 (03:43→07:55)
[2016-11-18] MEDS: Levothyroxine TAB* 50 MCG TAB PO SCH (05:54)
[2016-11-18] MEDS: Mometasone/Formoter 100/5 MDI INH SCH (07:56)
[2016-11-18 08:04] VITALS: BP 133/45
[2016-11-18] MEDS: Metoprolol Succinate XL TAB* 50 MG PO SCH (09:34)
[2016-11-18] MEDS: Aspirin EC Low Dose* 81 MG TAB.EC PO SCH (09:34)
[2016-11-18] MEDS: predniSONE TAB* 20 MG PO SCH (09:34)
[2016-11-18] MEDS: Omeprazole CAP* 20 MG PO SCH (09:36)
[2016-11-18] MEDS: Citalopram TAB* 20 MG PO SCH (09:36)
[2016-11-18] MEDS: Ascorbic Acid TAB* 500 MG PO SCH (09:37)
--- NOTE | 2016-11-18 09:53 | PN ---
Subjective Date of Service: 11/18/16 Interval History: Ms. Pearce states that she is feeling quite well this morning and eager for discharge to home. She states that her breathing is at baseline. She denies significant cough or shortness of breath. She denies chest pain. She is tolerating oral intake well. Family History: Unchanged from Admission Social History: Unchanged from Admission Past Medical History: Unchanged from Admission Objective Active Medications: Acetaminophen (Tylenol Tab*) 650 mg PO Q4H PRN Albuterol (Ventolin 2.5 Mg/3 Ml Neb.Melita*) 2.5 mg INH Q2H PRN Albuterol/Ipratropium (Duoneb (Albuterol 2.5 Mg/Ipratropium 0.5 Mg)) 1 neb INH RT.[id number] AWAKE [facility] Ascorbic Acid (Vitamin C Tab*) 500 mg PO DAILY [facility] Aspirin (Aspirin Ec Low Dose*) 81 mg PO DAILY [facility] Atorvastatin Calcium (Lipitor*) 20 mg PO BEDTIME [facility] Citalopram Hydrobromide (Celexa Tab*) 20 mg PO DAILY [facility] Enoxaparin Sodium (Lovenox(*)) 40 mg SUBCUT Q24H [facility] Levothyroxine Sodium (Synthroid Tab*) 50 mcg PO QAM@0600 [facility] Metoprolol Succinate (Toprol Xl Tab*) 50 mg PO DAILY [facility] Mometasone Furoate/Formoterol Fumar (Dulera 100/5 Mdi*) 2 puff INH BID [facility] Morphine Sulfate (Morphine Inj (Syringe)*) 4 mg IV Q4H PRN Omeprazole (Prilosec Cap*) 40 mg PO DAILY@0730 [facility] Ondansetron HCl (Zofran Inj*) 4 mg IV Q6H PRN Oxybutynin Chloride (Ditropan Xl Tab*) 10 mg PO DAILY [facility] Prednisone (Deltasone Tab*) 40 mg PO DAILY [facility] Vital Signs 11/17/16 11/17/16 11/17/16 11:16 11:40 15:25 Temperature 98.3 F Pulse Rate 75 84 80 Respiratory 20 Rate Blood Pressure 117/42 (mmHg) O2 Sat by Pulse 99 96 96 Oximetry 11/17/16 11/17/16 11/17/16 15:56 19:28 20:00 Temperature 97.9 F 97.5 F Pulse Rate 72 65 65 Respiratory 12 16 16 Rate Blood Pressure 130/37 113/39 (mmHg) O2 Sat by Pulse 99 96 96 Oximetry 11/17/16 11/17/16 11/18/16 20:05 23:58 03:55 Temperature 97.8 F 97.8 F Pulse Rate 81 69 Respiratory 20 20 Rate Blood Pressure 132/45 126/46 (mmHg) O2 Sat by Pulse 96 96 98 Oximetry 11/18/16 11/18/16 11/18/16 07:36 07:53 07:57 Temperature 97.9 F Pulse Rate 57 69 Respiratory 20 20 Rate Blood Pressure 133/45 (mmHg) O2 Sat by Pulse 98 98 98 Oximetry Oxygen Devices in Use Now: None Appearance: Female sitting up in chair in NAD Eyes: No Scleral Icterus Ears/Nose/Mouth/Throat: Mucous Membranes Moist Neck: NL Appearance and Movements; NL JVP Respiratory: Symmetrical Chest Expansion and Respiratory Effort, Clear to Auscultation Cardiovascular: NL Sounds; No Murmurs; No JVD, No Edema Abdominal: NL Sounds; No Tenderness; No Distention Lymphatic: No Cervical Adenopathy Extremities: No Edema Skin: No Rash or Ulcers Neurological: Alert and Oriented x 3, NL Muscle Strength and Tone Nutrition: Taking PO's Result Diagrams: 11/17/16 04:35 11/17/16 04:35 Additional Lab and Data: Lab Results 11/16/16 11/16/16 11/16/16 Range/Units 12:15 12:15 12:15 WBC 9.4 (3.5-10.8) 10^3/ul RBC 4.17 (4.0-5.4) 10^6/ul Hgb 12.1 (12.0-16.0) g/dl Hct 36 (35-47) % MCV 86 (80-97) fL MCH 29 (27-31) pg MCHC 34 (31-36) g/dl RDW 14 (10.5-15) % Plt Count 223 (150-450) 10^3/ul MPV 7 L (7.4-10.4) um3 Neut % (Auto) 58.5 (38-83) % Lymph % (Auto) 30.9 (25-47) % [place] % (Auto) 8.0 (1-9) % Eos % (Auto) 2.3 (0-6) % Baso % (Auto) 0.3 (0-2) % Absolute Neuts (auto) 5.5 (1.5-7.7) 10^3/ul Absolute Lymphs (auto) 2.9 (1.0-4.8) 10^3/ul Absolute Monos (auto) 0.7 (0-0.8) 10^3/ul Absolute Eos (auto) 0.2 (0-0.6) 10^3/ul Absolute Basos (auto) 0 (0-0.2) 10^3/ul Absolute Nucleated RBC 0 10^3/ul Nucleated RBC % 0 Sodium 139 (133-145) mmol/L Potassium 3.7 (3.5-5.0) mmol/L Chloride 103 (101-111) mmol/L Carbon Dioxide 29 (22-32) mmol/L Anion Gap 7 (2-11) mmol/L BUN 9 (6-24) mg/dL Creatinine 0.60 (0.51-0.95) mg/dL Est GFR ( Amer) 125.0 (>60) Est GFR (Non-Af Amer) 97.2 (>60) BUN/Creatinine Ratio 15.0 (8-20) Glucose 87 (70-100) mg/dL Lactic Acid (0.5-2.0) mmol/L Calcium 9.4 (8.6-10.3) mg/dL Total Bilirubin 0.50 (0.2-1.0) mg/dL AST 19 (13-39) U/L ALT 11 (7-52) U/L Alkaline Phosphatase 61 (34-104) U/L Troponin I 0.00 (<0.04) ng/mL C-Reactive Protein 1.50 (< 5.00) mg/L B-Natriuretic Peptide 314 H ( - 100) pg/mL Total Protein 7.3 (6.4-8.9) g/dL Albumin 4.0 (3.2-5.2) g/dL Globulin 3.3 (2-4) g/dL Albumin/Globulin Ratio 1.2 (1-3) 11/16/16 Range/Units 12:15 WBC (3.5-10.8) 10^3/ul RBC (4.0-5.4) 10^6/ul Hgb (12.0-16.0) g/dl Hct (35-47) % MCV (80-97) fL MCH (27-31) pg MCHC (31-36) g/dl RDW (10.5-15) % Plt Count (150-450) 10^3/ul MPV (7.4-10.4) um3 Neut % (Auto) (38-83) % Lymph % (Auto) (25-47) % [place] % (Auto) (1-9) % Eos % (Auto) (0-6) % Baso % (Auto) (0-2) % Absolute Neuts (auto) (1.5-7.7) 10^3/ul Absolute Lymphs (auto) (1.0-4.8) 10^3/ul Absolute Monos (auto) (0-0.8) 10^3/ul Absolute Eos (auto) (0-0.6) 10^3/ul Absolute Basos (auto) (0-0.2) 10^3/ul Absolute Nucleated RBC 10^3/ul Nucleated RBC % Sodium (133-145) mmol/L Potassium (3.5-5.0) mmol/L Chloride (101-111) mmol/L Carbon Dioxide (22-32) mmol/L Anion Gap (2-11) mmol/L BUN (6-24) mg/dL Creatinine (0.51-0.95) mg/dL Est GFR ( Amer) (>60) Est GFR (Non-Af Amer) (>60) BUN/Creatinine Ratio (8-20) Glucose (70-100) mg/dL Lactic Acid 1.0 (0.5-2.0) mmol/L Calcium (8.6-10.3) mg/dL Total Bilirubin (0.2-1.0) mg/dL AST (13-39) U/L ALT (7-52) U/L Alkaline Phosphatase (34-104) U/L Troponin I (<0.04) ng/mL C-Reactive Protein (< 5.00) mg/L B-Natriuretic Peptide ( - 100) pg/mL Total Protein (6.4-8.9) g/dL Albumin (3.2-5.2) g/dL Globulin (2-4) g/dL Albumin/Globulin Ratio (1-3) Microbiology and Other Data: Microbiology 11/16/16 17:47 Aerobic Blood Culture - Preliminary Blood Venous No Growth Day 1 Anaerobic Blood Culture - Preliminary No Growth Day 1 Assess/Plan/Problems-Billing Assessment: Ms. Pearce is a 76 yo female with a PMH significant for lung cancer s/p lobectomies, chronic obstructive pulmonary disease, and coronary artery disease , who presented on 11/16 with shortness of breath and activity intolerance x 1 week. - Patient Problems (1) COPD (chronic obstructive pulmonary disease) Comment: Resolving well. Cont prednsione, nebulizers, and Dulera. (2) Chest pain Comment: Trop negative x 3 Chest pain now resolved No ischemic changes, suspect secondary to resp distress CTA negative for PE Check echocardiogram to evaluate for cardiomyopathy (3) HLD (hyperlipidemia) Current Visit: Yes Comment: Cont statin. (4) Hypothyroidism Comment: TSH 0.18 Levothyroxine decreased from 75 mcg to 50 mcg. F/u thyroid studies in 6 weeks. (5) CAD (coronary artery disease) Comment: Continue ASA, statin, metoprolol. (6) GERD (gastroesophageal reflux disease) Comment: Cont omeprazole. (7) HTN (hypertension) Comment: Normotensive Cont metoprolol. (8) Urge incontinence Comment: Cont oxybutinin. (9) DNR (do not resuscitate) Comment: MOLST completed on 11/16/16 (10) DVT prophylaxis Comment: SQ Lovenox Status and Disposition: D/C to home.
[2016-11-18] MEDS: Oxybutynin XL TAB* 5 MG PO SCH (10:55)
--- NOTE | 2016-11-19 09:04 | DS ---
AMENDED REPORT NOW INCLUDES COSIGNER DESIGNATION CC: Rosanne Martinez MD * HOSPITAL MEDICINE DISCHARGE SUMMARY: DATE OF ADMISSION: 11/16/16 DATE OF DISCHARGE: 11/18/16 PRIMARY CARE PHYSICIAN: Rosanne Martinez MD ATTENDING PHYSICIAN.: Sindi Jasso MD * (dictation provided by Tanya Sadler NP). PRIMARY DIAGNOSES: 1. Chronic obstructive pulmonary disease exacerbation. 2. A newly diagnosed moderate aortic stenosis. SECONDARY DIAGNOSES: 1. Type 2 diabetes, noninsulin dependent. 2. Coronary artery disease with history of myocardial infarction in 1996. 3. Hypothyroidism. 4. Hyperlipidemia. 5. Lungs cancer. 6. Breast cancer. 7. Chronic obstructive pulmonary disease. 8. Depression. 9. Calcifying shoulder tendinitis. 10. Hypertension. 11. Peripheral arterial disease. 12. Carotid artery disease. 13. Gastroesophageal reflux disease 14. Osteopenia. 15. Urge incontinence. MEDICATIONS AT THE TIME OF DISCHARGE: 1. Spiriva 80 mcg inhaled daily. 2. Advair Diskus 250/50 one puff inhaled b.i.d. 3. Levothyroxine 50 mcg p.o. daily (new dose). 4. Prednisone 10 mg via taper. 5. Albuterol inhaler p.r.n. 6. Citalopram 20 mg p.o. daily. 7. Metoprolol succinate 50 mg p.o. daily. 8. Omeprazole 40 mg p.o. daily. 9. Aspirin 81 mg p.o. daily. 10. Oxybutynin 10 mg p.o. daily. 11. Ascorbic acid 500 mg p.o. daily. 12. Simvastatin 40 mg p.o. daily. HOSPITAL COURSE: Ms. Pearce is a 76-year-old female with a past medical history of coronary artery disease with AL as well as peripheral vascular disease and COPD, who presented to the hospital on on 11/16/16 with concern for shortness of breath with chest pain. Please see dictated H and P from Nata Mcginnis for complete details. In brief, the patient reported chest pain, increasing dyspnea and fatigue x1. In the emergency room she had an EKG which showed no evidence of acute ischemia. Her troponin was zero. Her BNP was 314 and the chest x-ray was negative as well as the CTA of the chest was negative for pulmonary embolism. Ms. Pearce was admitted to the the hospital with shortness of breath and chest pain that was thought to be secondary to COPD exacerbation. She did go on to have troponins x3. All of which were zero. Treatment for COPD was undertaken with nebulizers and steroids. She had a transthoracic echocardiogram which showed intact ejection fraction of 55% to 60 % with concern for diastolic filling deficit. It also showed moderate aortic stenosis which was new from her prior echo. Though it seemed she has had some improvement in her aortic insufficiency from moderate to severe to mild. With treatment of her COPD Ms. Pearce is feeling better today. She is breathing well at rest and ambulating short distances in her room without significant cough or shortness of breath. I have added to her regimen Spiriva and Advair given the severity of her exacerbation and significance of her shortness of breath on arrival. This could be adjusted by her provider, Dr. Martinez. The patient would also benefit from consultation with Pulmonology. I talked at length with the patient and her about her aortic valve abnormalities. I suggested that perhaps the patient should have the aortic valve followed with echocardiograms routinely. She also may benefit from a Cardiology consultation as an outpatient who could maximize her medication regimen especially as her aortic stenosis worsens over time, if and when that happens. Ms. Pearce is doing well. I will also note that we did decrease her levothyroxine as her TSH was 0.18 during the admission. DISPOSITION: Home. DIET: Low salt. ACTIVITY: As tolerated. FOLLOWUP PLANS: Please follow up with Dr. Martinez regarding this acute hospitalization and appointment should be made for the patient prior to her discharge. TIME SPENT: Approximately 60 minutes was spent in the discharge of this patient ; more than half the time was spent with the patient at the bedside, reviewing the events leading up to this hospitalization, performing the physical examination, and reviewing my plan of care. TANYA SADLER NP [id number]/[facility] #: [id number] MYLES
== END 2016-11-18 10:42 | disposition home or self-care (01) ==
LOC: ED 11:22 → MEDTELE 14:52
PROVIDERS: ADMIT Internal Medicine; ATTEND Internal Medicine
DX: J44.1 Chronic obstructive pulmonary disease with (acute) exacerbation (principal); R07.9 Chest pain, unspecified; I35.0 Nonrheumatic aortic (valve) stenosis; R06.02 Shortness of breath; E11.9 Type 2 diabetes mellitus without complications; I25.10 Atherosclerotic heart disease of native coronary artery without angina pectoris; I10 Essential (primary) hypertension; I25.2 Old myocardial infarction; I73.9 Peripheral vascular disease, unspecified; K21.9 Gastro-esophageal reflux disease without esophagitis; N39.41 Urge incontinence; M85.80 Other specified disorders of bone density and structure, unspecified site; Z85.3 Personal history of malignant neoplasm of breast; Z85.118 Personal history of other malignant neoplasm of bronchus and lung; F32.9 Major depressive disorder, single episode, unspecified; Z79.82 Long term (current) use of aspirin; Z79.899 Other long term (current) drug therapy; Z87.891 Personal history of nicotine dependence; E78.5 Hyperlipidemia, unspecified; E03.9 Hypothyroidism, unspecified
CPT/HCPCS: 36415; 71010; 71275; 80048; 80053; 83605; 83880; 84443; 84484; 85025; 86140; 87040; 93005; 93306; 94640; 94760; 96372; 96374; 96376; 99284; A9270-GY; G0378; J1650; J2930; J7512; Q9967

== ENCOUNTER 2016-12-13 15:07 | Inpatient (IN) | payer MEDICARE ==
[2016-12-13 16:16] LABS: Hematocrit 35 % (35-47); Hemoglobin 11.8 g/dl (12.0-16.0); Mean Corpuscular HGB Conc 34 g/dl (31-36); Mean Corpuscular Hemoglobin 30 pg (27-31); Mean Corpuscular Volume 87 fL (80-97); Mean Platelet Volume 7 um3 (7.4-10.4); Red Blood Count 3.98 10^6/ul (4.0-5.4); Red Cell Distribution Width 14 % (10.5-15); White Blood Count 8.7 10^3/ul (3.5-10.8)
[2016-12-13 16:17] LABS: Add Diff/Slide Review? Slide Review Added; Comments Flag Yes
--- NOTE | 2016-12-13 16:25 | RAD ---
Indication: Productive cough. Back pain. Comparison: November 16, 2016 CT. November 16, 2016 chest radiograph. Technique: Upright AP 1611 hours Report: Elevated lung volumes and both diffuse mild prominence of the interstitial markings and patchy rarefaction of the mid to upper lung zone interstitial markings. Patchy consolidation at the LEFT mid to lower lung zone new compared with the prior exam without volume loss most consistent with pneumonia. Staple line at the LEFT upper lung zone. Negative for pleural effusion or pneumothorax. The heart, pulmonary vasculature, and mediastinal contours are unremarkable. IMPRESSION: Patchy consolidation at the LEFT mid to lower lung zone new compared with the prior exam without volume loss most consistent with pneumonia.
[2016-12-13 16:31] LABS: Albumin 3.7 g/dL (3.2-5.2); BUN/Creatinine Ratio 27.5 (8-20); C Reactive Protein 402.64 mg/L (< 5.00); Calcium 9.6 mg/dL (8.6-10.3); EGFR African American 77.3 (>60); EGFR Non-African American 60.1 (>60); Globulin 4.3 g/dL (2-4); Potassium 3.4 mmol/L (3.5-5.0); Total Bilirubin 0.9 mg/dL (0.2-1.0)
[2016-12-13 16:33] LABS: Troponin I 0.01 ng/mL (<0.04)
--- NOTE | 2016-12-13 17:01 | RAD ---
INDICATION: Not urinating well for multiple days. Low back pain. History of LEFT breast and lung carcinoma. COMPARISON: November 16, [address] TECHNIQUE: Multidetector CT images were obtained from the lung bases to the ischial tuberosities. Evaluation of the viscera is limited without IV contrast. Multiplanar reformation. REPORT: Bibasilar airspace consolidation new compared with the prior exam. Negative for pleural effusions. Unchanged 0.6 cm well-circumscribed hypodense lesion at the LEFT hepatic lobe likely a cyst or hemangioma. Cholelithiasis without additional CT abnormality of the gallbladder. Negative for biliary dilatation. Atrophic pancreas. Unremarkable spleen. Negative for CT abnormality of the upper GI or small bowel. While the appendix is not discretely visualized, there is no inflammatory change in the right lower quadrant or region of the tip of the cecum to suggest presence of an acute inflammatory process. Unremarkable colon. Negative for ascites, free air, hernias. Unchanged 0.6 cm LEFT adrenal nodule consistent with a benign lipid rich adenoma based on density measurement. Few nonobstructing 1 - 2 mm calyceal stones midpole RIGHT kidney. Negative for hydronephrosis. No focal renal lesions evident. Unremarkable ureters and partially distended urinary bladder. Post hysterectomy. Unremarkable adnexal regions. 0.8 cm short axis GE junction lymph node increased in size over the prior exam. Atherosclerotic calcification of normal diameter abdominal aorta and iliac arteries. Decompressed IVC indicating low volume state. Negative for fracture or suspicious focal osseous lesions. Multilevel degenerative spondylosis and facet joint osteoarthritis. At L4-L5 there is mild grade 1 degenerative anterolisthesis. Mild annular disc bulge without resulting central canal stenosis. Degenerative spondylosis and facet joint osteoarthritis results in only slight bilateral foraminal stenosis. Advanced L5-S1 disc space narrowing. Dorsal disc osteophyte complex without resulting central canal stenosis. Vertebral and plate osteophytosis and facet joint osteoarthritis results in mild bilateral L5-S1 foraminal stenosis. IMPRESSION: 1. Bilateral basilar pulmonary inflammatory infiltrates new compared with the November 16, 2016 exam. 2. Few punctate nonobstructing RIGHT renal calyceal stones. Negative for obstructive uropathy. 3. Decompressed IVC indicating low volume state. 4. While within normal size limits the noted GE junction lymph node demonstrates interval increase in size. 5. Degenerative spondylosis and facet joint osteoarthritis most advanced at L5-S1. No suspicious focal osseous lesions evident.
[2016-12-13 17:21] LABS: Immature Granulocytes 48 % (0-9); Metamyelocytes % 1 % (0-2); Neutrophil % 23 % (38-83); RBC Morphology Normal (Normal)
[2016-12-13] MEDS ORDERED: NS 0.9% 1000 ML* 2,000 ML IV ONE (17:36)
[2016-12-13] MEDS: Levofloxacin 750 MG IVPREMIX(* 750 MG/150 ML BAG IVPB ONE ×2 (17:45→17:48)
[2016-12-13] MEDS ORDERED: Acetaminophen TAB* 325 MG PO PRN (18:07)
[2016-12-13] MEDS ORDERED: Dextrose 50% Syringe 50 ML* 25 GM/50 ML SYRINGE IV PUSH PRN (18:22)
--- NOTE | 2016-12-13 18:27 | ED ---
Sandra Campos Nilda, scribed for Preet Vásquez MD on 12/13/16 at 1605 . Back Pain - HPI Summary HPI Summary: This patient is a 76 year old F presenting to [facility] accompanied by with a chief complaint of constant mild back pain since yesterday. Symptoms aggravated and alleviated by nothing. Patient reports SOB and cough (baseline state due to COPD), decreased urination (past 3-4 days), and constant mild bilateral flank pain. Patient denies urinary burning and urinary frequency. PMHx includes COPD. - History of Current Complaint Chief Complaint: EDShortnessOfBreath Stated Complaint: UNABLE TO URINATE Time Seen by Provider: 12/13/16 15:44 Hx Obtained From: Patient Onset/Duration: Sudden Onset Onset/Duration: Started Days Ago Timing: Constant Severity Currently: Mild Pain Intensity: 0 Pain Scale Used: 0-10 Numeric Aggravating Symptom(s): Nothing Alleviating Symptom(s): Nothing Associated Signs And Symptoms: Positive: Flank Pain, Other - decreased urination - Allergies/Home Medications Allergies/Adverse Reactions: Allergies Allergy/AdvReac Type Severity Reaction Status Date / Time No Known Allergies Allergy Verified 12/13/16 15:48 Home Medications: Home Medications Levothyroxine TAB* [Synthroid TAB*] 50 mcg PO QAM 12/13/16 [History Confirmed ] PMH/Surg Hx/FS Hx/Imm Hx Endocrine/Hematology History: Reports: Hx Thyroid Disease Denies: Hx Diabetes Cardiovascular History: Reports: Hx Hypercholesterolemia, Hx Hypertension Respiratory History: Reports: Hx Chronic Obstructive Pulmonary Disease (COPD), Hx Lung Cancer - Bilateral, Hx Pneumonia, Other Respiratory Problems/Disorders - HX LUNG AND BREAST CA Denies: Hx Asthma GI History: Reports: Hx Gastroesophageal Reflux Disease Denies: Hx Ulcer Musculoskeletal History: Reports: Hx Arthritis - hands and legs Sensory History: Reports: Hx Contacts or Glasses Denies: Hx Hearing Aid Opthamlomology History: Reports: Hx Contacts or Glasses - Cancer History Cancer Type, Location and Year: left breast ca, lung ca 2005, 2006(bilateral lungs) - Surgical History Surgery Procedure, Year, and Place: BREAST SURGERY. HYSTERECTOMY. BILATERAL LOBECTOMY - Immunization History Date of Influenza Vaccine: 12/08/16 Infectious Disease History: Yes Infectious Disease History: Denies: Hx Clostridium Difficile, Hx Hepatitis, Hx Human Immunodeficiency Virus (HIV), Traveled Outside the [place] in Last 30 Days - Family History Known Family History: Positive: Cardiac Disease - [place], Hypertension, Diabetes, Other - Suicide - Social History Alcohol Use: Rare Substance Use Type: Reports: None Smoking Status (MU): Former Smoker Have You Smoked in the Last Year: No Review of Systems Positive: Shortness Of Breath, Cough Positive: flank pain, other - decreased urination. Negative: burning, frequency Positive: Other - back pain All Other Systems Reviewed And Are Negative: Yes Physical Exam Triage Information Reviewed: Yes Vital Signs On Initial Exam: Initial Vitals Temp Pulse Resp BP Pulse Ox 98.8 F 74 22 135/118 88 12/13/16 15:12 12/13/16 15:12 12/13/16 15:12 12/13/16 15:12 12/13/16 15:12 Vital Signs Reviewed: Yes Appearance: Positive: Well-Appearing, No Pain Distress Skin: Positive: Warm, Skin Color Reflects Adequate Perfusion, Dry Head/Face: Positive: Normal Head/Face Inspection Eyes: Positive: Normal ENT: Positive: Normal ENT inspection Neck: Positive: Supple, Nontender Respiratory/Lung Sounds: Positive: Breath Sounds Present, Decreased Breath Sounds Cardiovascular: Positive: RRR, Murmur - Systolic Ejection Murmur Abdomen Description: Positive: Nontender, Soft Bowel Sounds: Positive: Present Musculoskeletal: Positive: Other - Lower lumbar tenderness Neurological: Positive: Normal Psychiatric: Positive: Normal, Affect/Mood Appropriate - [place] Coma Scale Coma Scale Total: 15 Diagnostics - Vital Signs Vital Signs Temp Pulse Resp BP Pulse Ox 12/13/16 15:30 92 12/13/16 15:12 98.8 F 74 22 135/118 88 - Laboratory Lab Results: Lab Results 12/13/16 12/13/16 Range/Units 16:08 16:08 WBC 8.7 (3.5-10.8) 10^3/ul RBC 3.98 L (4.0-5.4) 10^6/ul Hgb 11.8 L (12.0-16.0) g/dl Hct 35 (35-47) % MCV 87 (80-97) fL MCH 30 (27-31) pg MCHC 34 (31-36) g/dl RDW 14 (10.5-15) % Plt Count 326 (150-450) 10^3/ul MPV 7 L (7.4-10.4) um3 Immature Gran % (Auto) 48 H (0-9) % Neut % (Auto) 78.7 (38-83) % Lymph % (Auto) 11.0 L (25-47) % [place] % (Auto) 10.1 H (1-9) % Eos % (Auto) 0.1 (0-6) % Baso % (Auto) 0.1 (0-2) % Absolute Neuts (auto) 6.9 (1.5-7.7) 10^3/ul Absolute Lymphs (auto) 1.0 (1.0-4.8) 10^3/ul Absolute Monos (auto) 0.9 H (0-0.8) 10^3/ul Absolute Eos (auto) 0 (0-0.6) 10^3/ul Absolute Basos (auto) 0 (0-0.2) 10^3/ul Absolute Nucleated RBC 0 10^3/ul Neutrophils % 23 L (38-83) % Band Neutrophils % 47 H (0-8) % Lymphocytes % 19 L (25-47) % Reactive Lymphs % Not Reportable Monocytes % 10 (0-13) % Metamyelocytes % 1 (0-2) % Nucleated RBC % 0 Normal RBC Morphology Normal (Normal) Sodium 136 (133-145) mmol/L Potassium 3.4 L (3.5-5.0) mmol/L Chloride 97 L (101-111) mmol/L Carbon Dioxide 28 (22-32) mmol/L Anion Gap 11 (2-11) mmol/L BUN 25 H (6-24) mg/dL Creatinine 0.91 (0.51-0.95) mg/dL Est GFR ( Amer) 77.3 (>60) Est GFR (Non-Af Amer) 60.1 (>60) BUN/Creatinine Ratio 27.5 H (8-20) Glucose 136 H (70-100) mg/dL Calcium 9.6 (8.6-10.3) mg/dL Total Bilirubin 0.90 (0.2-1.0) mg/dL AST 13 (13-39) U/L ALT 10 (7-52) U/L Alkaline Phosphatase 58 (34-104) U/L Troponin I 0.01 (<0.04) ng/mL C-Reactive Protein 402.64 H (< 5.00) mg/L Total Protein 8.0 (6.4-8.9) g/dL Albumin 3.7 (3.2-5.2) g/dL Globulin 4.3 H (2-4) g/dL Albumin/Globulin Ratio 0.9 L (1-3) Result Diagrams: 12/13/16 16:08 12/13/16 16:08 Lab Statement: Any lab studies that have been ordered have been reviewed, and results considered in the medical decision making process. - Radiology CXR Radiology Interpretation Completed By: Radiologist - Patchy consolidation at the LEFT mid to lower lung zone new compared with the prior exam without volume loss most consistent with pneumonia. ED physician has reviewed this radiology report and agrees. - CT Abd/Pelvis CT Interpretation Completed By: Radiologist - 1. Bilateral basilar pulmonary inflammatory infiltrates new compared with the November 16, 2016 exam. 2. Few punctate nonobstructing RIGHT renal calyceal stones. Negative for obstructive uropathy. 3. Decompressed IVC indicating low volume state. 4. While within normal size limits the noted GE junction lymph node demonstrates interval increase in size. 5. Degenerative spondylosis and facet joint osteoarthritis most advanced at L5-S1. No suspicious focal osseous lesions evident. ED Physician reviewed report and agrees. - EKG 1528 Cardiac Rate: NL - 68 bpm EKG Rhythm: Sinus Rhythm EKG Interpretation: non-specific changes Re-Evaluation - Re-Evaluation First Eval Re-Evaluation Time: 17:17 Comment: Patient is unchanged. Back Pain Course/Dx - Course Course Of Treatment: Ms. Pearce presented with bilateral low back pain. She clearly wasn't breathing well but minimized that. She was found to have bilateral lower lobe pneumonia and will be admitted to the hospitalist service. - Diagnoses Provider Diagnoses: Pneumonia - Provider Notifications Discussed Care Of Patient With: Suleiman Frank - Hospitalist Time Discussed With Above Provider: 17:20 Instructed by Provider To: Other - will admit patient. Discharge - Discharge Plan Condition: Stable Disposition: ADMITTED TO [facility] Referrals: Rosanne Martinez MD [Primary Care Provider] - The documentation as recorded by the Sandra jaime Nilda accurately reflects the service I personally performed and the decisions made by me, Preet Vásquez MD.
[2016-12-13] MEDS ORDERED: predniSONE TAB* 20 MG PO ONE (18:44)
[2016-12-13] MEDS: Albuterol 2.5 MG/3 ML NEB.SOL* (0.083%) INH PRN (18:52)
[2016-12-13] MEDS ORDERED: predniSONE TAB* 20 MG ONE (18:57)
[2016-12-13] MEDS ORDERED: Morphine INJ* 2 MG/ML 1 ML SYRINGE (TWO MG - NEW SYRINGE VERSION) IV PRN (19:05)
[2016-12-13] MEDS ORDERED: Cefepime(*) 1 GM in NS 0.9% 50 ML* 50 ML IVPB SCH (19:30)
[2016-12-13] MEDS: Atorvastatin* 20 MG TAB PO SCH (20:55)
[2016-12-13] MEDS: Heparin VIAL(*) 5000 UNITS/ML VIAL (FIVE THOUSAND) SUBCUT SCH (20:56)
[2016-12-13] MEDS: Mometasone/Formoter 200/5 MDI INH SCH (21:54)
--- NOTE | 2016-12-13 22:08 | HP ---
CC: Dr. Martinez * HOSPITAL MEDICINE HISTORY AND PHYSICAL: DATE OF ADMISSION: 12/13/16 PRIMARY CARE PHYSICIAN: Dr. Martinez. ATTENDING PHYSICIAN: Dr. Suleiman Frank * (dictation provided by Tanya Sadler NP ) CHIEF COMPLAINT: Low back pain and poor urine output. HISTORY OF PRESENT ILLNESS: Ms. Pearce is a 76-year-old female with a past medical history of COPD, moderate aortic stenosis, type 2 diabetes, coronary artery disease with MN in 1996, and home O2 use at 2 L nasal cannula with chronic hypoxic respiratory failure who presents to the hospital today with a concern for low back pain and difficulty urinating. Ms. Pearce states that she was feeling well since her discharge on 11/18/16. She followed up with her primary care physician, Dr. Martinez, on 12/08/[address] Martinez felt that everything was "going okay" per the patient's report. Ms. Pearce states that in general at baseline she feels rather "crappy." Over the past few days, she has developed low back pain. She describes pain in the lumbar region that wraps around her rib cage bilaterally. The pain seems worse with deep inspiration. It is made better by taking Tylenol. She reports a cough that does not seem to be changed from baseline. It is productive. She has felt more short of breath, but can trace that symptom back at least the past couple of months. Ultimately, she decided to go to the emergency room because of the pain in her back and sides and the fact that she was having poor urine output as she suspected that perhaps she had a kidney stone. She has had no fever, no chills. She has been eating and drinking normally. She has had normal formed bowel movements. In the emergency room, Ms. Pearce had an abdomen and pelvis CT, which showed concern for bilateral pulmonary infiltrates, a new finding compared to 11/16/16 chest CTA. Radiology also noted a decompressed IVC indicating a low volume state. Her labs are very remarkable for a bandemia at 47 and a CRP of 402.64. Her white blood cell count is actually normal at this point. Her BUN and creatinine are normal. Her platelets are normal. She is currently on 3 L nasal cannula up from her home baseline 2 L nasal cannula. PAST MEDICAL HISTORY: 1. COPD. 2. Moderate aortic stenosis. 3. Type 2 diabetes, noninsulin-dependent. 4. Coronary artery disease with history of MN in 1996. 5. Hypothyroidism. 6. Hyperlipidemia. 7. History of lung cancer. 8. History of breast cancer. 9. Depression. 10. Calcifying shoulder tendinitis. 11. Hypertension. 12. Peripheral arterial disease. 13. Carotid artery disease. 14. GERD. 15. Osteopenia. 16. Urge incontinence. MEDICATIONS: 1. Tiotropium 1 cap inhaled daily. 2. Albuterol 2 puffs inhaled q.6 hours p.r.n. 3. Levothyroxine 50 micrograms p.o. q.a.m. 4. Fluticasone/salmeterol 250/50 one puff inhaled b.i.d. 5. Oxybutynin 10 mg p.o. daily. 6. Citalopram 20 mg p.o. daily. 7. Aspirin 81 mg p.o. daily. 8. Ascorbic acid 500 mg p.o. daily. 9. Simvastatin 40 mg p.o. at bedtime. 10. Omeprazole 40 mg p.o. daily. 11. Metoprolol succinate 50 mg p.o. daily. ALLERGIES: No known drug allergies. FAMILY HISTORY: The patient reports there is history of diabetes, heart disease , hypertension, CVA in her mother. Father of suicide at age 44. She has a sister and brother with history of diabetes, heart disease and hypertension. SOCIAL HISTORY: The patient is a former smoker. She quit in 2006, but has smoked approximately 2 pack a day for at least 56 years. She is a very rare alcohol drinker. She denies any illicit drug use. She lives with her , who is the healthcare proxy along with her daughter, Mala Dye. REVIEW OF SYSTEMS: A 14-point review of systems was completed with Ms. Pearce and all those not mentioned above were negative. PHYSICAL EXAMINATION GENERAL: Ms. Pearce is lying in bed. She is in no acute distress. VITAL SIGNS: Temperature 98.8, heart rate 70, respiratory rate 19, O2 saturation 96% on room air, blood pressure 124/107. LUNGS: Diminished bilaterally. I do not appreciate any rhonchi or wheezes today. She appears mildly tachypneic at rest. She is able to speak in complete sentences. HEART: S1, S2. Systolic murmur at the sternal border. ABDOMEN: Soft, nontender with bowel sounds positive x4. EXTREMITIES: No cyanosis or edema. SKIN: Intact. NEUROLOGIC: She is alert. She is oriented x3. She moves all extremities equally. There is no facial asymmetry or focal weakness. Extraocular movements are intact. LABORATORY DATA: WBC 8.7, hemoglobin 11.8, hematocrit 35, platelet count 326, bands 47%. Sodium 136, potassium 3.4, chloride 97, serum bicarbonate 25, BUN 25 , glucose 136, CRP 402.64. Troponin 0.01. EKG shows a sinus rhythm with a heart rate of 68 and no evidence of ischemia. Abdomen and pelvis CT was read as follows: Bilateral basilar pulmonary inflammatory infiltrates. New compared with 11/16/16 exam, few punctate nonobstructing right renal calyceal stones. Negative for obstructive uropathy. Decompressed IVC indicating low volume state. While within normal size limits, the noted GE junction lymph node demonstrates interval increase in size. Degenerative spondylosis and facet joint osteoarthritis mostly advanced at L5-S1. No suspicious focal osseous lesion evident. The chest x-ray is read as follows: "Patchy consolidation at the left mid to lower lung zone, new compared with the prior exam without volume loss most consistent with pneumonia." ASSESSMENT: Ms. Pearce is a 76-year-old female with a past medical history of diabetes, which is diet controlled; chronic obstructive pulmonary disease, on 2 L nasal cannula at home with chronic hypoxic respiratory failure; coronary artery disease; lung cancer; and breast cancer who presents to the hospital today with concern for back and thigh pain around the ribs with low urine output , found ultimately to have pneumonia. Our plans are for inpatient admission as I expect her length to stay to be greater than 2 days for the followin. Pneumonia, concern for developing sepsis. The patient's CT of the chest is concerning for new bilateral infiltrates. Though she does not have white blood cell count, she does have a bandemia of 47% and a CRP of 402.64. She will blood cultures prior to administration of cefepime and levaquin, 30ml/kg IV lfuid bolus, and a lactic acid. I am concerned the patient has risk factors for hospital acquired pneumonia given her recent hospitalization and advanced COPD. Plan to consult Dr. Giordano from Infectious Diseases to help guide antibiotic treatment. 2. The patient has a history of diet-controlled diabetes. Plan to order blood glucoses q.a.c. and provide lispro sliding scale insulin. 3. Hypertension. Continue metoprolol. 4. DVT prophylaxis with heparin subcu. 5. Chronic obstructive pulmonary disease. Plan to continue fluticasone/ salmeterol. 6. Gastroesophageal reflux disease. Continue omeprazole. 7. Code status is DNR. The patient has completed the MOLST form. TIME SPENT: Approximately 60 minutes were spent on the admission of this patient, more than half time with the patient at the bedside reviewing the events leading up to this hospitalization, performing the physical examination, and reviewing the plan of care. TANYA SADLER NP [id number]/[facility] #: [id number] MYLES
[2016-12-14] MEDS: Levothyroxine TAB* 50 MCG TAB PO SCH (05:17)
[2016-12-14] MEDS: Heparin VIAL(*) 5000 UNITS/ML VIAL (FIVE THOUSAND) SUBCUT SCH ×3 (05:17→22:02)
[2016-12-14 06:12] LABS: Hematocrit 33 % (35-47); Hemoglobin 11.1 g/dl (12.0-16.0); Mean Corpuscular HGB Conc 34 g/dl (31-36); Mean Corpuscular Hemoglobin 29 pg (27-31); Mean Corpuscular Volume 87 fL (80-97); Mean Platelet Volume 7 um3 (7.4-10.4); Red Blood Count 3.78 10^6/ul (4.0-5.4); Red Cell Distribution Width 14 % (10.5-15); White Blood Count 7.7 10^3/ul (3.5-10.8)
[2016-12-14 06:24] LABS: BUN/Creatinine Ratio 34.1 (8-20); Calcium 8.7 mg/dL (8.6-10.3); EGFR African American 178.8 (>60); Potassium 3.5 mmol/L (3.5-5.0)
[2016-12-14] MEDS ORDERED: Spiriva Inhaler DEVICE* 1 EACH DEVICE INH ONE (09:00)
[2016-12-14] MEDS: Tiotropium CAP.INH* CAP.INH/18 MCG (USE ORDER SET !) INH SCH (09:34)
[2016-12-14] MEDS: Mometasone/Formoter 200/5 MDI INH SCH ×2 (09:34→19:34)
--- NOTE | 2016-12-14 09:43 | PN ---
Subjective Date of Service: 12/14/16 Interval History: Patient seen and examined at bedside. Denies fever, chills, chest discomfort, N/ V/D. Pt continues to have shortness of breath even at rest, some improvement with use of fan. Pt states that she has an appointment with a Supervisor [employer] next month. Family History: Unchanged from Admission Social History: Unchanged from Admission Past Medical History: Unchanged from Admission Objective Active Medications: Acetaminophen (Tylenol Tab*) 650 mg PO Q6H PRN Reason: pain/fever Albuterol (Ventolin Hfa Inhaler*) 2 puff INH Q6HR PRN Reason: SHORTNESS OF BREATH Albuterol (Ventolin 2.5 Mg/3 Ml Neb.Melita*) 2.5 mg INH Q4H PRN Reason: SOB/ WHEEZING Ascorbic Acid (Vitamin C Tab*) 500 mg PO DAILY FELICIA Aspirin (Aspirin Ec Low Dose*) 81 mg PO DAILY FELICIA Atorvastatin Calcium (Lipitor*) 20 mg PO BEDTIME FELICIA Citalopram Hydrobromide (Celexa Tab*) 20 mg PO DAILY FELICIA Dextrose (D50w Syringe 50 Ml*) 12.5 gm IV PUSH .FOR FS < 60 - SS PRN Reason: FS < 60 Heparin Sodium (Porcine) (Heparin Vial(*)) 5,000 units SUBCUT Q8HR FELICIA Sodium Chloride (Ns 0.9% 1000 Ml*) 1,000 mls @ 75 mls/hr IV PER RATE FELICIA Levofloxacin/Dextrose (Levaquin 750 Mg Ivpremix(*)) 750 mg in 150 mls @ 100 mls /hr IVPB Q48H FELICIA Cefepime HCl 1 gm/ Sodium (Chloride) 50 mls @ 100 mls/hr IVPB Q24H FELICIA Insulin Human Lispro (Humalog*) 0 units SUBCUT AC FELICIA Levothyroxine Sodium (Synthroid Tab*) 50 mcg PO 0600 FELICIA Metoprolol Succinate (Toprol Xl Tab*) 50 mg PO DAILY FELICIA Mometasone Furoate/Formoterol Fumar (Dulera 200/5 Mdi*) 2 puff INH BID FELICIA Morphine Sulfate (Morphine Inj (Syringe)*) 1 mg IV Q1H PRN Reason: air hunger Omeprazole (Prilosec Cap*) 40 mg PO DAILY FELICIA Oxybutynin Chloride (Ditropan Xl Tab*) 10 mg PO DAILY FELICIA Prednisone (Deltasone Tab*) 40 mg PO DAILY FELICIA Tiotropium [place] (Spiriva Cap.Inh*) 1 cap INH DAILY FELICIA Vital Signs 12/13/16 12/13/16 12/13/16 18:00 18:26 21:57 Temperature 98.1 F Pulse Rate 72 95 Respiratory 21 24 18 Rate Blood Pressure 192/73 (mmHg) O2 Sat by Pulse 97 96 94 Oximetry 12/13/16 12/14/16 23:27 03:52 Temperature 97.5 F 97.6 F Pulse Rate 75 83 Respiratory 18 16 Rate Blood Pressure 95/65 157/68 (mmHg) O2 Sat by Pulse 99 99 Oximetry Oxygen Devices in Use Now: Nasal Cannula - 4L Appearance: NAD, sitting up on the side of the bed Ears/Nose/Mouth/Throat: Mucous Membranes Moist Respiratory: Symmetrical Chest Expansion and Respiratory Effort, - - Rhonchi Cardiovascular: RRR, - - Grade 3/6 systolic murmur herd best at the left sternal border Extremities: No Edema Skin: No Rash or Ulcers Neurological: Alert and Oriented x 3, NL Muscle Strength and Tone Lines/Tubes/Other Access: Clean, Dry and Intact Peripheral IV - site benign Nutrition: Taking PO's Result Diagrams: 12/14/16 05:52 12/14/16 05:52 Microbiology and Other Data: Microbiology 12/13/16 21:00 Gram Stain - Final Sputum 12/13/16 18:30 Gram Stain - Final Sputum 12/14/16 04:00 Legionella Urinary Antigen - Final Urine Negative Legionella Streptococcus pneumoniae Ag Screen - Final Negative S. pneumo Antigen 12/13/16 18:12 Influenza Types A,B Antigen (JOSE RAFAEL) - Final Nasal Specimen received for Influenza A/B Molecular testing Assess/Plan/Problems-Billing Assessment: Ms. Pearce is a 76 yo female with PMH significant for DM, COPD, chronic hypoxic respiratory failure, CAD, hx lung and breast CA who presented to the emergency room with concerns for back and thigh pain and was found to have pneumonia. - Patient Problems (1) Pneumonia Code(s): J18.9 - PNEUMONIA, UNSPECIFIED ORGANISM SNOMED Code(s): 699569846 Comment: - CT with new bilateral infiltrates - No Leukocytosis, but bandemia of 47% and CRP of ~ 403 - Sputum and blood cultures pending - Urine negative for Legionella and S. Pneumo antigens - ID consult pending - Continue cefepime and levaqin (2) Acute respiratory failure with hypoxia Code(s): J96.01 - ACUTE RESPIRATORY FAILURE WITH HYPOXIA SNOMED Code(s): 77695059 Comment: - Acute on chronic. - Wean O2 as able. (3) COPD (chronic obstructive pulmonary disease) Code(s): J44.9 - CHRONIC OBSTRUCTIVE PULMONARY DISEASE, UNSPECIFIED SNOMED Code(s): 58076709 Comment: - With chronic hypoxic respiratory failure, on home O2 - 2L via NC. - No signs of exacerbation at this time. - Continue Dulera, Spiriva, nebulizers, and prednisone taper. (4) Diabetes Code(s): E11.9 - TYPE 2 DIABETES MELLITUS WITHOUT COMPLICATIONS SNOMED Code(s) : 56920424 Comment: - Diet controlled - Glucose 130-140's - Blood glucose checks AC - [place] Lispro SS (5) HTN (hypertension) Code(s): I10 - ESSENTIAL (PRIMARY) HYPERTENSION SNOMED Code(s): 30773357 Comment: - SBP 90-150's. - Continue metoprolol. (6) HLD (hyperlipidemia) Code(s): E78.5 - HYPERLIPIDEMIA, UNSPECIFIED SNOMED Code(s): 43143778 Comment: - Continue statin. (7) Hypothyroidism Code(s): E03.9 - HYPOTHYROIDISM, UNSPECIFIED SNOMED Code(s): 15370595 Comment: - TSH 0.18 on 11/16/16 - Continue levothyroxine - F/u thyroid studies 6 weeks from previous (8) CAD (coronary artery disease) Code(s): I25.10 - ATHSCL HEART DISEASE OF [place] CORONARY ARTERY W/O ANG PCTRS SNOMED Code(s): 33834709 Comment: - Continue ASA, statin, metoprolol. (9) GERD (gastroesophageal reflux disease) Code(s): K21.9 - GASTRO-ESOPHAGEAL REFLUX DISEASE WITHOUT ESOPHAGITIS SNOMED Code(s): 684312114 Comment: - Continue omeprazole. (10) DVT prophylaxis Code(s): THH8680 - SNOMED Code(s): 768341693 Comment: - SQ Heparin (11) DNR (do not resuscitate) Comment: Status and Disposition: Inpatient. Plan for discharge to home when medically stable.
[2016-12-14] MEDS: Ascorbic Acid TAB* 500 MG PO SCH (10:13)
[2016-12-14] MEDS: predniSONE TAB* 20 MG PO SCH (10:14)
[2016-12-14] MEDS: Citalopram TAB* 20 MG PO SCH (10:14)
[2016-12-14] MEDS: Metoprolol Succinate XL TAB* 50 MG PO SCH (10:14)
[2016-12-14] MEDS: Aspirin EC Low Dose* 81 MG TAB.EC PO SCH (10:14)
[2016-12-14] MEDS: Insulin LISPRO* 1 UNITS UNIT SUBCUT SCH ×3 (10:14→17:46)
[2016-12-14] MEDS: Omeprazole CAP* 20 MG PO SCH (10:15)
[2016-12-14] MEDS: NS 0.9% 1000 ML* 1,000 ML IV SCH (10:23)
[2016-12-14] MEDS: Oxybutynin XL TAB* 5 MG PO SCH (10:24)
[2016-12-14] MEDS: Albuterol 2.5 MG/3 ML NEB.SOL* (0.083%) INH SCH ×2 (13:26→19:28)
[2016-12-14] MEDS: cefTRIAXone VIAL(*) 1,000 MG in NS 0.9% 50 ML* 50 ML IVPB SCH (17:47)
--- NOTE | 2016-12-14 21:12 | CONS ---
CONSULTATION REPORT: DATE OF CONSULT: 12/14/16 REQUESTING PROVIDER: Maral Goff NP CONSULTING SERVICE: Infectious Disease. REASON FOR CONSULTATION: Pneumonia. IMPRESSION: 1. Acute on chronic hypoxemic respiratory failure with chronic obstructive pulmonary disease. 2. Left lower lobe pneumonia. Sputum cultures growing pneumonococcus. 3. Chronic obstructive pulmonary disease. 4. Aortic stenosis. 5. Type 2 diabetes. 6. Coronary artery disease. RECOMMENDATIONS: Stop the Levaquin. Change her cefepime to ceftriaxone. Await sensitivity from the sputum culture. Supplemental oxygen and corticosteroids per the primary team. HISTORY OF PRESENT ILLNESS: This is a 76-year-old woman with severe COPD, who uses supplemental oxygen at home usually 2 L mostly at night, recent COPD exacerbation with a course of steroids, now with 2 or 3 days of worsening cough , left-sided abdominal and chest pain, brought to the hospital on the with white count of 8, CRP of 400, influenza PCR was negative. She was saturating in the low 80s, which improved to the low 90s with oxygen supplementation. Now , she is saturating 98% on 4 L. Her pain is improved. She still has a cough and is short of breath, speaking and have to catch her breathe while talking. Recently she did have a flu shot this year. She believes she has had pneumococcal vaccine in the past. PAST MEDICAL HISTORY: 1. COPD with chronic respiratory failure. 2. Moderate aortic stenosis. 3. Type 2 diabetes. 4. Coronary artery disease with history of [place]. 5. Hypothyroidism. 6. Hyperlipidemia. 7. Lung cancer, status post lobectomy. 8. Breast cancer. 9. Depression. 10. Calcific tendinosis. 11. Hypertension. 12. Peripheral vascular disease. 13. Carotid disease. 14. Gastroesophageal reflux disease. 15. Osteopenia. 16. Urge incontinence. ALLERGIES: No known drug allergies. MEDICATIONS: 1. Tylenol. 2. Albuterol inhaler. 3. Vitamin C. 4. Aspirin. 5. Lipitor. 6. Celexa. 7. Heparin subcutaneous injection. 8. Levofloxacin 750 mg every 48 hours. 9. Metoprolol. 10. Morphine. 11. Omeprazole. 12. Oxybutynin. 13. Cefepime. 14. Spiriva. 15. Prednisone 60 mg a day. SOCIAL HISTORY: She lives with her . She is a past smoker, occasional alcohol. FAMILY HISTORY: Mother had a stroke. Father of suicide at age 44. Brother with diabetes. REVIEW OF SYSTEMS: A 14-point review of systems is negative except as noted above. PHYSICAL EXAM: Vital Signs: Temperature 36.5, heart rate 80, respiratory rate 18, blood pressure 118/46, and O2 sat 98% on 4 L. In general, she is awake, not in distress. She is dyspneic with talking. HEENT: There is no conjunctival hemorrhage. Oropharynx without lesions. Neck is supple without nuchal rigidity. Lymph Nodes: There is no cervical, supraclavicular, inguinal, axillary, or epitrochlear lymphadenopathy. Heart is regular rate and rhythm without murmurs, rubs, or gallops. Lungs: There are rales at the left base. There is no egophony. Abdomen: Soft, nontender, nondistended. There are bowel sounds present. Skin: There is no rash or splinter hemorrhages. Musculoskeletal: There is no spine tenderness to palpation or joint synovitis. DIAGNOSTIC STUDIES/LAB DATA: Influenza PCR negative. White blood cell count 7.7, hemoglobin 11, platelets 298. Creatinine is 0.4. Please see impressions and recommendations outlined above, which I have discussed with Maral Goff NP. Thank you for asking me to see Ms. Pearce in consultation. [id number]/[facility] #: [id number] MYLES
[2016-12-14] MEDS: Atorvastatin* 20 MG TAB PO SCH (22:02)
[2016-12-15] MEDS: Albuterol 2.5 MG/3 ML NEB.SOL* (0.083%) INH SCH ×2 (01:00→01:08)
[2016-12-15] MEDS: Heparin VIAL(*) 5000 UNITS/ML VIAL (FIVE THOUSAND) SUBCUT SCH ×3 (05:30→21:43)
[2016-12-15] MEDS: Levothyroxine TAB* 50 MCG TAB PO SCH (05:30)
[2016-12-15] MEDS: NS 0.9% 1000 ML* 1,000 ML IV SCH (05:31)
[2016-12-15 06:15] LABS: Hematocrit 39 % (35-47); Hemoglobin 12.9 g/dl (12.0-16.0); Mean Corpuscular HGB Conc 33 g/dl (31-36); Mean Corpuscular Hemoglobin 29 pg (27-31); Mean Corpuscular Volume 87 fL (80-97); Mean Platelet Volume 7 um3 (7.4-10.4); Red Blood Count 4.55 10^6/ul (4.0-5.4); Red Cell Distribution Width 15 % (10.5-15); White Blood Count 6.8 10^3/ul (3.5-10.8)
[2016-12-15 06:17] LABS: Add Diff/Slide Review? Slide Review Added; Comments Flag Yes
[2016-12-15] MEDS: Insulin LISPRO* 1 UNITS UNIT SUBCUT SCH ×3 (07:25→17:49)
[2016-12-15] MEDS: Tiotropium CAP.INH* CAP.INH/18 MCG (USE ORDER SET !) INH SCH (08:12)
[2016-12-15] MEDS: Mometasone/Formoter 200/5 MDI INH SCH ×2 (08:12→20:29)
[2016-12-15] MEDS: Albuterol HFA INHALER* 8 gm MDI INH PRN (08:13)
[2016-12-15 08:39] LABS: Eosinophils % 1 % (0-6); Immature Granulocytes 14 % (0-9); Myelocytes % 4 % (0-1); Neutrophil % 65 % (38-83)
[2016-12-15 08:41] LABS: Hypochromasia 1+; Toxic Granulation 1+
--- NOTE | 2016-12-15 08:48 | PN ---
Progress Note - Progress Note Date of Service: 12/15/16 SOAP: Subjective: CC: pneumonia HPI: 76 year old woman with COPD and now pneumonia. Chest pain resolved. Cough and breathing feel better, slept well. No fever, rash, or diarrhea. Objective: [] Vital Signs Temp 36.8 C 12/15/16 07:13 Pulse 70 12/15/16 08:19 Resp 20 12/15/16 08:19 BP 126/51 12/15/16 07:13 Pulse Ox 96 12/15/16 08:19 Intake & Output 12/14/16 12/15/16 12/15/16 18:59 06:59 18:59 Intake Total 540 1863 Balance 540 1863 Weight 92 lb 9.6 oz Intake: IV Fluids 1213 NS (0.9%) 1213 IVPB 50 ABX - CEFTRIAXONE 50 Oral 540 600 Other: Estimated Void Large # Bowel Movements 1 0 Estimated Stool Amount Medium # Voids 1 Gen:awake, no distress; HEENT: no thrush Heart:RRR no murmur Lungs: Rhonchi R base Abd:+BS NTND soft Skin: no rash MSK: no spine tenderness Laboratory Results - last 24 hr 12/14/16 12/14/16 12/14/16 08:03 12:13 17:23 WBC RBC Hgb Hct MCV MCH MCHC RDW Plt Count MPV Immature Gran % (Auto) Neut % (Auto) Lymph % (Auto) [place] % (Auto) Eos % (Auto) Baso % (Auto) Absolute Neuts (auto) Absolute Lymphs (auto) Absolute Monos (auto) Absolute Eos (auto) Absolute Basos (auto) Absolute Nucleated RBC Neutrophils % Band Neutrophils % Lymphocytes % Monocytes % Eosinophils % Myelocytes % Nucleated RBC % Toxic Granulation Normal RBC Morphology Hypochromasia POC Glucose (mg/dL) 167 H 89 152 H 12/15/16 12/15/16 05:56 07:10 WBC 6.8 RBC 4.55 Hgb 12.9 Hct 39 MCV 87 MCH 29 MCHC 33 RDW 15 Plt Count 235 MPV 7 L Immature Gran % (Auto) 14 H Neut % (Auto) 71.9 Lymph % (Auto) 19.2 L [place] % (Auto) 8.3 Eos % (Auto) 0.2 Baso % (Auto) 0.4 Absolute Neuts (auto) 4.9 Absolute Lymphs (auto) 1.3 Absolute Monos (auto) 0.6 Absolute Eos (auto) 0 Absolute Basos (auto) 0 Absolute Nucleated RBC 0.01 Neutrophils % 65 Band Neutrophils % 10 H Lymphocytes % 14 L Monocytes % 6 Eosinophils % 1 Myelocytes % 4 H Nucleated RBC % 0.1 Toxic Granulation 1+ Normal RBC Morphology Not Reportable Hypochromasia 1+ POC Glucose (mg/dL) 108 H Assessment: 1. Acute on chronic hypoxemic respiratory failure, present on admission 2. Pneumococcal pneumonia 3. severe COPD 4. chronic corticosteroid use Plan: 1. continue ceftriaxone 1 gm daily; day 3/5 then PO antibiotics 2. corticosteroid, supplemental O2
[2016-12-15] MEDS: Omeprazole CAP* 20 MG PO SCH (09:44)
[2016-12-15] MEDS: Metoprolol Succinate XL TAB* 50 MG PO SCH (09:44)
[2016-12-15] MEDS: Oxybutynin XL TAB* 5 MG PO SCH (09:44)
[2016-12-15] MEDS: Citalopram TAB* 20 MG PO SCH (09:45)
[2016-12-15] MEDS: Ascorbic Acid TAB* 500 MG PO SCH (09:45)
[2016-12-15] MEDS: predniSONE TAB* 20 MG PO SCH (09:45)
[2016-12-15] MEDS: Aspirin EC Low Dose* 81 MG TAB.EC PO SCH (09:45)
--- NOTE | 2016-12-15 16:36 | PN ---
Subjective Date of Service: 12/15/16 Interval History: Patient seen and examined at bedside. Denies fever, chills, chest discomfort, N/ V/D. Pt continues to have shortness of breath, but feels this is improved since admission. Pt is now down to 2L via NC. Pt has been encouraged to ambulate around as much as she would need to at home. Family History: Unchanged from Admission Social History: Unchanged from Admission Past Medical History: Unchanged from Admission Objective Active Medications: Acetaminophen (Tylenol Tab*) 650 mg PO Q6H PRN Reason: pain/fever Albuterol (Ventolin Hfa Inhaler*) 2 puff INH Q6HR PRN Reason: SHORTNESS OF BREATH Albuterol (Ventolin 2.5 Mg/3 Ml Neb.Melita*) 2.5 mg INH Q4H PRN Reason: SOB/ WHEEZING Ascorbic Acid (Vitamin C Tab*) 500 mg PO DAILY [facility] Aspirin (Aspirin Ec Low Dose*) 81 mg PO DAILY [facility] Atorvastatin Calcium (Lipitor*) 20 mg PO BEDTIME [facility] Citalopram Hydrobromide (Celexa Tab*) 20 mg PO DAILY [facility] Dextrose (D50w Syringe 50 Ml*) 12.5 gm IV PUSH .FOR FS < 60 - SS PRN Reason: FS < 60 Heparin Sodium (Porcine) (Heparin Vial(*)) 5,000 units SUBCUT Q8HR [facility] Sodium Chloride (Ns 0.9% 1000 Ml*) 1,000 mls @ 75 mls/hr IV PER RATE [facility] Ceftriaxone Sodium 1,000 mg/ (Sodium Chloride) 50 mls @ 200 mls/hr IVPB Q24H [facility] Insulin Human Lispro (Humalog*) 0 units SUBCUT AC [facility] Levothyroxine Sodium (Synthroid Tab*) 50 mcg PO 0600 [facility] Metoprolol Succinate (Toprol Xl Tab*) 50 mg PO DAILY [facility] Mometasone Furoate/Formoterol Fumar (Dulera 200/5 Mdi*) 2 puff INH BID [facility] Morphine Sulfate (Morphine Inj (Syringe)*) 1 mg IV Q1H PRN Reason: air hunger Omeprazole (Prilosec Cap*) 40 mg PO DAILY [facility] Oxybutynin Chloride (Ditropan Xl Tab*) 10 mg PO DAILY [facility] Prednisone (Deltasone Tab*) 40 mg PO DAILY [facility] Tiotropium [place] (Spiriva Cap.Inh*) 1 cap INH DAILY [facility] Vital Signs 12/14/16 12/14/16 12/14/16 19:32 20:39 22:50 Temperature 97.7 F Pulse Rate 65 75 Respiratory 18 23 18 Rate Blood Pressure 117/39 (mmHg) O2 Sat by Pulse 98 96 Oximetry 12/14/16 12/14/16 12/15/16 23:15 23:56 03:09 Temperature 98.6 F 98.3 F Pulse Rate 66 62 Respiratory 16 16 Rate Blood Pressure 131/46 119/75 (mmHg) O2 Sat by Pulse 100 91 Oximetry 12/15/16 12/15/16 12/15/16 06:27 07:13 07:31 Temperature 98.2 F Pulse Rate 66 Respiratory 18 20 Rate Blood Pressure 126/51 (mmHg) O2 Sat by Pulse 93 96 Oximetry 12/15/16 12/15/16 12/15/16 08:17 08:18 08:19 Temperature Pulse Rate 66 70 Respiratory 20 20 Rate Blood Pressure (mmHg) O2 Sat by Pulse 96 96 96 Oximetry 12/15/16 11:08 Temperature 98.0 F Pulse Rate 81 Respiratory 20 Rate Blood Pressure 126/47 (mmHg) O2 Sat by Pulse 96 Oximetry Oxygen Devices in Use Now: Nasal Cannula - 2L Appearance: NAD, sitting up in bed Ears/Nose/Mouth/Throat: Mucous Membranes Moist Respiratory: Symmetrical Chest Expansion and Respiratory Effort, Clear to Auscultation - diminished. Few scattered rhonchi in the right base Cardiovascular: NL Sounds; No Murmurs; No JVD Abdominal: NL Sounds; No Tenderness; No Distention Extremities: No Edema Skin: No Rash or Ulcers Neurological: Alert and Oriented x 3, NL Muscle Strength and Tone Lines/Tubes/Other Access: Clean, Dry and Intact Peripheral IV - site benign Nutrition: Taking PO's Result Diagrams: 12/15/16 05:56 12/14/16 05:52 Additional Lab and Data: Microbiology and Other Data: Microbiology 12/13/16 21:00 Gram Stain - Final Sputum 12/13/16 18:30 Gram Stain - Final Sputum 12/14/16 04:00 Legionella Urinary Antigen - Final Urine Negative Legionella Streptococcus pneumoniae Ag Screen - Final Negative S. pneumo Antigen 12/13/16 18:12 Influenza Types A,B Antigen ([facility]FA[facility]) - Final Nasal Specimen received for Influenza A/B Molecular testing Assess/Plan/Problems-Billing Assessment: Ms. Pearce is a 76 yo female with PMH significant for DM, COPD, chronic hypoxic respiratory failure, CAD, hx lung and breast CA who presented to the emergency room with concerns for back and thigh pain and was found to have pneumonia. - Patient Problems (1) Pneumonia Code(s): J18.9 - PNEUMONIA, UNSPECIFIED ORGANISM SNOMED Code(s): 551575402 Comment: - CT with new bilateral infiltrates - No Leukocytosis, but bandemia of 47% and CRP of ~ 403 on admission, improving - Sputum with S. peumo repeat sputum with normal victoriano - Blood cultures no growth day 1/2 - Urine negative for Legionella and S. Pneumo antigens - ID consult, input appreciated - Continue Ceftriaxone (day 3/5), then change to PO (2) Acute respiratory failure with hypoxia Code(s): J96.01 - ACUTE RESPIRATORY FAILURE WITH HYPOXIA SNOMED Code(s): 68531378 Comment: - Acute on chronic. - back to baseline O2 requirements (3) COPD (chronic obstructive pulmonary disease) Code(s): J44.9 - CHRONIC OBSTRUCTIVE PULMONARY DISEASE, UNSPECIFIED SNOMED Code(s): 01183870 Comment: - With chronic hypoxic respiratory failure, on home O2 - 2L via NC. - No signs of exacerbation at this time. - Continue Dulera, Spiriva, nebulizers, and prednisone taper. (4) Diabetes Code(s): E11.9 - TYPE 2 DIABETES MELLITUS WITHOUT COMPLICATIONS SNOMED Code(s) : 37063806 Comment: - Diet controlled - Glucose 100-180's - Blood glucose checks AC - Cotn[place]ue Lispro SS (5) HTN (hypertension) Code(s): I10 - ESSENTIAL (PRIMARY) HYPERTENSION SNOMED Code(s): 45149509 Comment: - SBP 110-130's. - Continue metoprolol. (6) HLD (hyperlipidemia) Code(s): E78.5 - HYPERLIPIDEMIA, UNSPECIFIED SNOMED Code(s): 36132305 Comment: - Continue statin. (7) Hypothyroidism Code(s): E03.9 - HYPOTHYROIDISM, UNSPECIFIED SNOMED Code(s): 51417995 Comment: - TSH 0.18 on 11/16/16 - Continue levothyroxine - F/u thyroid studies 6 weeks from previous (8) CAD (coronary artery disease) Code(s): I25.10 - ATHSCL HEART DISEASE OF [place] CORONARY ARTERY W/O ANG PCTRS SNOMED Code(s): 60812997 Comment: - Continue ASA, statin, metoprolol. (9) GERD (gastroesophageal reflux disease) Code(s): K21.9 - GASTRO-ESOPHAGEAL REFLUX DISEASE WITHOUT ESOPHAGITIS SNOMED Code(s): 753995119 Comment: - Continue omeprazole. (10) DVT prophylaxis Code(s): GVS5287 - SNOMED Code(s): 500571889 Comment: - SQ Heparin (11) DNR (do not resuscitate) Comment: Status and Disposition: Inpatient. Plan for discharge to home when medically stable, plan for once she has completed 5 days of IV ABX.
[2016-12-15] MEDS: cefTRIAXone VIAL(*) 1,000 MG in NS 0.9% 50 ML* 50 ML IVPB SCH (17:49)
[2016-12-15] MEDS ORDERED: Levofloxacin 750 MG IVPREMIX(* 750 MG/150 ML BAG IVPB SCH (18:00)
[2016-12-15] MEDS: Atorvastatin* 20 MG TAB PO SCH (20:48)
[2016-12-16] MEDS: NS 0.9% 1000 ML* 1,000 ML IV SCH ×2 (00:45→10:53)
[2016-12-16] MEDS: Levothyroxine TAB* 50 MCG TAB PO SCH (05:31)
[2016-12-16] MEDS: Heparin VIAL(*) 5000 UNITS/ML VIAL (FIVE THOUSAND) SUBCUT SCH ×4 (05:31→21:31)
[2016-12-16 05:59] LABS: Hematocrit 31 % (35-47); Hemoglobin 10.6 g/dl (12.0-16.0); Mean Corpuscular HGB Conc 34 g/dl (31-36); Mean Corpuscular Hemoglobin 30 pg (27-31); Mean Corpuscular Volume 88 fL (80-97); Mean Platelet Volume 7 um3 (7.4-10.4); Red Blood Count 3.56 10^6/ul (4.0-5.4); Red Cell Distribution Width 14 % (10.5-15)
[2016-12-16 06:05] LABS: Add Diff/Slide Review? Slide Review Added; Comments Flag Yes
[2016-12-16 06:15] LABS: BUN/Creatinine Ratio 34.1 (8-20); Calcium 8.4 mg/dL (8.6-10.3); EGFR Non-African American 150.8 (>60); Potassium 3.3 mmol/L (3.5-5.0)
[2016-12-16] MEDS: Insulin LISPRO* 1 UNITS UNIT SUBCUT SCH ×3 (07:47→17:44)
[2016-12-16] MEDS ORDERED: Potassium Chlor TAB* 20 MEQ TAB.ER PO ONE (07:56)
[2016-12-16 08:16] LABS: Magnesium 1.6 mg/dL (1.9-2.7)
--- NOTE | 2016-12-16 08:50 | PN ---
Subjective Date of Service: 12/16/16 Interval History: Patient seen and examined at bedside. Pt states that she continues to have shortness of breath, this is increased with exertion. She notes that she is needing the fan on less to help with her shortness of breath. Denies fever, chills, chest discomfort, N/V/D. Ms. Pearce states that she is ambulating to the bathroom. She is currently on 2L O2, this is her baseline O2 requirement at home. Family History: Unchanged from Admission Social History: Unchanged from Admission Past Medical History: Unchanged from Admission Objective Active Medications: Acetaminophen (Tylenol Tab*) 650 mg PO Q6H PRN Reason: pain/fever Albuterol (Ventolin Hfa Inhaler*) 2 puff INH Q6HR PRN Reason: SHORTNESS OF BREATH Albuterol (Ventolin 2.5 Mg/3 Ml Neb.Melita*) 2.5 mg INH Q4H PRN Reason: SOB/ WHEEZING Ascorbic Acid (Vitamin C Tab*) 500 mg PO DAILY [facility] Aspirin (Aspirin Ec Low Dose*) 81 mg PO DAILY [facility] Atorvastatin Calcium (Lipitor*) 20 mg PO BEDTIME [facility] Citalopram Hydrobromide (Celexa Tab*) 20 mg PO DAILY [facility] Dextrose (D50w Syringe 50 Ml*) 12.5 gm IV PUSH .FOR FS < 60 - SS PRN Reason: FS < 60 Heparin Sodium (Porcine) (Heparin Vial(*)) 5,000 units SUBCUT Q8HR [facility] Sodium Chloride (Ns 0.9% 1000 Ml*) 1,000 mls @ 75 mls/hr IV PER RATE [facility] Ceftriaxone Sodium 1,000 mg/ (Sodium Chloride) 50 mls @ 200 mls/hr IVPB Q24H [facility] Magnesium Sulfate 3 gm/ Sodium (Chloride) 106 mls @ 53 mls/hr IVPB ONCE ONE Stop: 12/16/16 10:41 Insulin Human Lispro (Humalog*) 0 units SUBCUT AC [facility] Levothyroxine Sodium (Synthroid Tab*) 50 mcg PO 0600 [facility] Metoprolol Succinate (Toprol Xl Tab*) 50 mg PO DAILY [facility] Mometasone Furoate/Formoterol Fumar (Dulera 200/5 Mdi*) 2 puff INH BID [facility] Morphine Sulfate (Morphine Inj (Syringe)*) 1 mg IV Q1H PRN Reason: air hunger Omeprazole (Prilosec Cap*) 40 mg PO DAILY [facility] Oxybutynin Chloride (Ditropan Xl Tab*) 10 mg PO DAILY [facility] Prednisone (Deltasone Tab*) 40 mg PO DAILY [facility] Tiotropium [place] (Spiriva Cap.Inh*) 1 cap INH DAILY [facility] Vital Signs 12/15/16 12/15/16 12/15/16 11:08 17:49 20:04 Temperature 98.0 F 97.8 F 97.9 F Pulse Rate 81 72 68 Respiratory 20 18 18 Rate Blood Pressure 126/47 138/53 137/55 (mmHg) O2 Sat by Pulse 96 98 96 Oximetry 12/15/16 12/15/16 12/15/16 20:32 20:34 23:39 Temperature 97.2 F Pulse Rate 20 58 Respiratory 98 20 15 Rate Blood Pressure 134/43 (mmHg) O2 Sat by Pulse 98 98 Oximetry 12/16/16 03:24 Temperature 97.6 F Pulse Rate 60 Respiratory 15 Rate Blood Pressure 122/46 (mmHg) O2 Sat by Pulse 99 Oximetry Oxygen Devices in Use Now: Nasal Cannula - 2L Appearance: NAD, sitting up in bed Respiratory: Symmetrical Chest Expansion and Respiratory Effort, - - Lung sounds diminished, rhonchi Cardiovascular: RRR - 3/6 systolic murmur heard best at the left sternal border , - - 2/6 systolic murmur heard best at the left sternal border Abdominal: NL Sounds; No Tenderness; No Distention Extremities: No Edema Skin: No Rash or Ulcers Neurological: Alert and Oriented x 3, NL Muscle Strength and Tone Lines/Tubes/Other Access: Clean, Dry and Intact Peripheral IV - site benign Nutrition: Taking PO's Result Diagrams: 12/16/16 05:20 12/16/16 05:20 Additional Lab and Data: Microbiology and Other Data: Microbiology 12/13/16 21:00 Gram Stain - Final Sputum 12/13/16 18:30 Gram Stain - Final Sputum 12/14/16 04:00 Legionella Urinary Antigen - Final Urine Negative Legionella Streptococcus pneumoniae Ag Screen - Final Negative S. pneumo Antigen 12/13/16 18:12 Influenza Types A,B Antigen ([facility]) - Final Nasal Specimen received for Influenza A/B Molecular testing Assess/Plan/Problems-Billing Assessment: Ms. Pearce is a 76 yo female with PMH significant for DM, COPD, chronic hypoxic respiratory failure, CAD, hx lung and breast CA who presented to the emergency room with concerns for back and thigh pain and was found to have pneumonia. - Patient Problems (1) Pneumonia Code(s): J18.9 - PNEUMONIA, UNSPECIFIED ORGANISM SNOMED Code(s): 965012302 Comment: - CT with new bilateral infiltrates - No Leukocytosis, but bandemia of 47% and CRP of ~ 403 on admission, improving - Sputum with S. peumo repeat sputum with normal victoriano - Blood cultures no growth day 1/2 - Urine negative for Legionella and S. Pneumo antigens - ID consult, input appreciated - Continue Ceftriaxone (day 4/5), then change to PO (2) Acute respiratory failure with hypoxia Code(s): J96.01 - ACUTE RESPIRATORY FAILURE WITH HYPOXIA SNOMED Code(s): 90213232 Comment: - Acute on chronic. - back to baseline O2 requirements (3) COPD (chronic obstructive pulmonary disease) Code(s): J44.9 - CHRONIC OBSTRUCTIVE PULMONARY DISEASE, UNSPECIFIED SNOMED Code(s): 21335906 Comment: - With chronic hypoxic respiratory failure, on home O2 - 2L via NC. - No signs of exacerbation at this time. - Continue Dulera, Spiriva, nebulizers, and prednisone taper. (4) Diabetes Code(s): E11.9 - TYPE 2 DIABETES MELLITUS WITHOUT COMPLICATIONS SNOMED Code(s) : 45873870 Comment: - Diet controlled - Glucose 90-180's - Blood glucose checks AC - Cotninue Lispro SS (5) HTN (hypertension) Code(s): I10 - ESSENTIAL (PRIMARY) HYPERTENSION SNOMED Code(s): 66052504 Comment: - SBP 120-140's. - Continue metoprolol. (6) HLD (hyperlipidemia) Code(s): E78.5 - HYPERLIPIDEMIA, UNSPECIFIED SNOMED Code(s): 75131640 Comment: - Continue statin. (7) Hypothyroidism Code(s): E03.9 - HYPOTHYROIDISM, UNSPECIFIED SNOMED Code(s): 12255475 Comment: - TSH 0.18 on 11/16/16 - Continue levothyroxine - F/u thyroid studies 6 weeks from previous (8) CAD (coronary artery disease) Code(s): I25.10 - ATHSCL HEART DISEASE OF [place] CORONARY ARTERY W/O ANG PCTRS SNOMED Code(s): 73809281 Comment: - Continue ASA, statin, metoprolol. (9) GERD (gastroesophageal reflux disease) Code(s): K21.9 - GASTRO-ESOPHAGEAL REFLUX DISEASE WITHOUT ESOPHAGITIS SNOMED Code(s): 989292489 Comment: - Continue omeprazole. (10) DVT prophylaxis Code(s): [id number] - SNOMED Code(s): 685376130 Comment: - SQ Heparin (11) DNR (do not resuscitate) Comment: Status and Disposition: Inpatient. Plan for discharge to home when medically stable, plan for once she has completed 5 days of IV ABX. Possible discharge to home tomorrow.
[2016-12-16] MEDS ORDERED: Ondansetron INJ* 2 MG/ML VIAL IV PRN (09:21)
[2016-12-16] MEDS ORDERED: PROCHLORPERAZINE INJ 5 MG/ML 2 ML VIAL IV PRN (09:22)
[2016-12-16] MEDS ORDERED: PROCHLORPERAZINE INJ 5 MG/ML 2 ML VIAL ONE (09:23)
[2016-12-16] MEDS: Tiotropium CAP.INH* CAP.INH/18 MCG (USE ORDER SET !) INH SCH (09:48)
[2016-12-16] MEDS: Mometasone/Formoter 200/5 MDI INH SCH ×2 (09:48→21:35)
[2016-12-16] MEDS: Ascorbic Acid TAB* 500 MG PO SCH (10:40)
[2016-12-16] MEDS: Omeprazole CAP* 20 MG PO SCH (10:41)
[2016-12-16] MEDS: predniSONE TAB* 20 MG PO SCH (10:41)
[2016-12-16] MEDS: Aspirin EC Low Dose* 81 MG TAB.EC PO SCH (10:41)
[2016-12-16] MEDS: Citalopram TAB* 20 MG PO SCH (10:41)
[2016-12-16] MEDS: Metoprolol Succinate XL TAB* 50 MG PO SCH (10:42)
[2016-12-16] MEDS: Oxybutynin XL TAB* 5 MG PO SCH (10:53)
[2016-12-16] MEDS: Albuterol 2.5 MG/3 ML NEB.SOL* (0.083%) INH PRN (12:51)
[2016-12-16] MEDS: Albuterol HFA INHALER* 8 gm MDI INH PRN (13:53)
[2016-12-16] MEDS ORDERED: Furosemide IV* 10 MG/ML 2 ML VIAL (20 MG) IV ONE (14:14)
--- NOTE | 2016-12-16 14:20 | RAD ---
Indication: Shortness of breath. Single frontal view of the chest performed at 1348 hours was reviewed. Comparison is made with previous exam dated December 13, 2016. Cardiomegaly with bilateral pleural effusion, interstitial and alveolar infiltrates are noted. Findings are consistent with CHF and pulmonary edema. IMPRESSION: PROGRESSIVE INTERSTITIAL AND ALVEOLAR INFILTRATE SUSPICIOUS FOR CHF AND PULMONARY EDEMA.
[2016-12-16 14:32] LABS: PCO2 Arterial 61 mmHg (35-45)
[2016-12-16] MEDS: cefTRIAXone VIAL(*) 1,000 MG in NS 0.9% 50 ML* 50 ML IVPB SCH (17:40)
[2016-12-16 18:10] LABS: BIPAP Y; EPAP 5; FIO2 60; IPAP 10; Resp Rate 12
[2016-12-16 18:14] LABS: PCO2 Arterial 43 mmHg (35-45)
[2016-12-16] MEDS: Atorvastatin* 20 MG TAB PO SCH (21:31)
[2016-12-17] MEDS: Heparin VIAL(*) 5000 UNITS/ML VIAL (FIVE THOUSAND) SUBCUT SCH ×3 (05:58→21:36)
[2016-12-17] MEDS: Levothyroxine TAB* 50 MCG TAB PO SCH (05:58)
[2016-12-17] MEDS: Albuterol 2.5 MG/3 ML NEB.SOL* (0.083%) INH PRN (07:44)
[2016-12-17] MEDS: Mometasone/Formoter 200/5 MDI INH SCH ×2 (07:49→19:10)
[2016-12-17] MEDS: Tiotropium CAP.INH* CAP.INH/18 MCG (USE ORDER SET !) INH SCH (07:49)
[2016-12-17 08:38] LABS: Hematocrit 32 % (35-47); Hemoglobin 10.8 g/dl (12.0-16.0); Mean Corpuscular HGB Conc 33 g/dl (31-36); Mean Corpuscular Hemoglobin 30 pg (27-31); Mean Corpuscular Volume 89 fL (80-97); Red Blood Count 3.63 10^6/ul (4.0-5.4); Red Cell Distribution Width 14 % (10.5-15); White Blood Count 14.9 10^3/ul (3.5-10.8)
[2016-12-17 08:39] LABS: Add Diff/Slide Review? Slide Review Added; Comments Flag Yes
[2016-12-17 08:44] LABS: BUN/Creatinine Ratio 41.5 (8-20); Calcium 8.4 mg/dL (8.6-10.3); EGFR Non-African American 150.8 (>60)
[2016-12-17] MEDS: Insulin LISPRO* 1 UNITS UNIT SUBCUT SCH ×3 (08:45→17:34)
[2016-12-17] MEDS: Oxybutynin XL TAB* 5 MG PO SCH (08:46)
[2016-12-17] MEDS: Aspirin EC Low Dose* 81 MG TAB.EC PO SCH (08:47)
[2016-12-17] MEDS: Omeprazole CAP* 20 MG PO SCH (08:47)
[2016-12-17] MEDS: Metoprolol Succinate XL TAB* 50 MG PO SCH (08:47)
[2016-12-17] MEDS: Citalopram TAB* 20 MG PO SCH (08:48)
[2016-12-17] MEDS: Ascorbic Acid TAB* 500 MG PO SCH (08:48)
[2016-12-17] MEDS: predniSONE TAB* 20 MG PO SCH (08:48)
--- NOTE | 2016-12-17 08:51 | PN ---
Subjective Date of Service: 12/17/16 Interval History: Patient seen and examined at bedside. Pt sates that her breathing is improving, but still worse than it was yesterday morning. Denies fever, chills, chest discomfort, N/V/D. Pt uses O2 at 2L via NC at home Tele: Sinus rhythm, rate 70-80's Family History: Unchanged from Admission Social History: Unchanged from Admission Past Medical History: Unchanged from Admission Objective Active Medications: Acetaminophen (Tylenol Tab*) 650 mg PO Q6H PRN Reason: pain/fever Albuterol (Ventolin Hfa Inhaler*) 2 puff INH Q6HR PRN Reason: SHORTNESS OF BREATH Albuterol (Ventolin 2.5 Mg/3 Ml Neb.Melita*) 2.5 mg INH Q4H PRN Reason: SOB/ WHEEZING Ascorbic Acid (Vitamin C Tab*) 500 mg PO DAILY [facility] Aspirin (Aspirin Ec Low Dose*) 81 mg PO DAILY [facility] Atorvastatin Calcium (Lipitor*) 20 mg PO BEDTIME [facility] Citalopram Hydrobromide (Celexa Tab*) 20 mg PO DAILY [facility] Dextrose (D50w Syringe 50 Ml*) 12.5 gm IV PUSH .FOR FS < 60 - SS PRN Reason: FS < 60 Heparin Sodium (Porcine) (Heparin Vial(*)) 5,000 units SUBCUT Q8HR [facility] Ceftriaxone Sodium 1,000 mg/ (Sodium Chloride) 50 mls @ 200 mls/hr IVPB Q24H [facility] Insulin Human Lispro (Humalog*) 0 units SUBCUT AC [facility] Levothyroxine Sodium (Synthroid Tab*) 50 mcg PO 0600 [facility] Metoprolol Succinate (Toprol Xl Tab*) 50 mg PO DAILY [facility] Mometasone Furoate/Formoterol Fumar (Dulera 200/5 Mdi*) 2 puff INH BID [facility] Morphine Sulfate (Morphine Inj (Syringe)*) 1 mg IV Q1H PRN Reason: air hunger Omeprazole (Prilosec Cap*) 40 mg PO DAILY [facility] Oxybutynin Chloride (Ditropan Xl Tab*) 10 mg PO DAILY [facility] Prednisone (Deltasone Tab*) 40 mg PO DAILY [facility] Prochlorperazine Edisylate (Compazine Inj*) 5 mg IV Q6H PRN Reason: NAUSEA/ VOMITING Tiotropium [place] (Spiriva Cap.Inh*) 1 cap INH DAILY [facility] Vital Signs 12/16/16 12/16/16 12/16/16 09:58 11:16 13:50 Temperature 97.3 F Pulse Rate 90 99 Respiratory 28 22 Rate Blood Pressure 176/62 (mmHg) O2 Sat by Pulse 91 Oximetry 12/16/16 12/16/16 12/16/16 14:50 15:37 16:32 Temperature Pulse Rate 88 Respiratory 16 20 Rate Blood Pressure 171/67 (mmHg) O2 Sat by Pulse 90 Oximetry 12/16/16 12/16/16 12/16/16 17:00 17:05 17:07 Temperature 97.3 F Pulse Rate 69 72 71 Respiratory 26 26 27 Rate Blood Pressure 120/60 120/60 (mmHg) O2 Sat by Pulse 100 94 100 Oximetry 12/16/16 12/16/16 12/16/16 17:15 17:19 17:30 Temperature Pulse Rate 66 64 Respiratory 26 25 25 Rate Blood Pressure 102/52 104/47 (mmHg) O2 Sat by Pulse 100 100 Oximetry 12/16/16 12/16/16 12/16/16 17:45 18:00 18:03 Temperature Pulse Rate 66 76 75 Respiratory 24 23 22 Rate Blood Pressure 125/59 (mmHg) O2 Sat by Pulse 100 100 100 Oximetry 12/16/16 12/16/16 12/16/16 18:07 18:15 18:30 Temperature Pulse Rate 69 66 63 Respiratory 24 27 25 Rate Blood Pressure 121/54 118/53 (mmHg) O2 Sat by Pulse 100 99 99 Oximetry 12/16/16 12/16/16 12/16/16 18:45 19:00 19:01 Temperature Pulse Rate 65 75 75 Respiratory 27 23 24 Rate Blood Pressure 117/53 135/55 (mmHg) O2 Sat by Pulse 99 100 100 Oximetry 12/16/16 12/16/16 12/16/16 19:15 19:31 19:45 Temperature Pulse Rate 81 72 73 Respiratory 33 24 27 Rate Blood Pressure 146/68 85/65 143/60 (mmHg) O2 Sat by Pulse 100 100 99 Oximetry 12/16/16 12/16/16 12/16/16 20:00 20:01 20:15 Temperature 97.6 F Pulse Rate 82 66 63 Respiratory 20 31 27 Rate Blood Pressure 133/54 111/58 (mmHg) O2 Sat by Pulse 99 99 98 Oximetry 1012/16/16 12/16/16 20:30 20:45 21:00 Temperature Pulse Rate 62 66 62 Respiratory 23 23 23 Rate Blood Pressure 114/49 111/51 126/54 (mmHg) O2 Sat by Pulse 99 98 98 Oximetry 12/16/16 12/16/16 12/16/16 21:01 21:15 21:30 Temperature Pulse Rate 61 59 59 Respiratory 24 24 22 Rate Blood Pressure 116/51 117/48 (mmHg) O2 Sat by Pulse 99 99 99 Oximetry 12/16/16 12/16/16 12/16/16 21:45 22:00 22:15 Temperature Pulse Rate 62 61 60 Respiratory 22 25 23 Rate Blood Pressure 144/58 126/53 121/49 (mmHg) O2 Sat by Pulse 100 100 100 Oximetry 12/16/16 12/16/16 12/16/16 22:30 22:45 23:00 Temperature Pulse Rate 59 59 59 Respiratory 27 24 25 Rate Blood Pressure 127/52 116/45 116/49 (mmHg) O2 Sat by Pulse 99 99 99 Oximetry 12/16/16 12/16/16 12/16/16 23:01 23:10 23:15 Temperature Pulse Rate 58 59 58 Respiratory 30 23 26 Rate Blood Pressure 122/50 (mmHg) O2 Sat by Pulse 100 99 100 Oximetry 12/16/16 12/16/16 12/17/16 23:30 23:45 00:00 Temperature 97.9 F Pulse Rate 59 59 65 Respiratory 23 22 23 Rate Blood Pressure 126/47 121/52 129/50 (mmHg) O2 Sat by Pulse 99 99 99 Oximetry 12/17/16 12/17/16 12/17/16 00:15 00:30 00:45 Temperature Pulse Rate 59 57 56 Respiratory 22 23 25 Rate Blood Pressure 114/47 121/47 129/52 (mmHg) O2 Sat by Pulse 98 98 99 Oximetry 12/17/16 12/17/16 12/17/16 01:00 01:15 01:30 Temperature Pulse Rate 56 60 56 Respiratory 23 26 25 Rate Blood Pressure 125/47 152/60 122/52 (mmHg) O2 Sat by Pulse 98 100 98 Oximetry 12/17/16 12/17/16 12/17/16 01:45 02:00 02:15 Temperature Pulse Rate 55 55 55 Respiratory 24 26 24 Rate Blood Pressure 126/50 125/50 122/54 (mmHg) O2 Sat by Pulse 98 99 99 Oximetry 12/17/16 12/17/16 12/17/16 02:30 02:46 03:00 Temperature Pulse Rate 59 90 65 Respiratory 24 19 18 Rate Blood Pressure 126/49 132/76 147/60 (mmHg) O2 Sat by Pulse 99 100 98 Oximetry 12/17/16 12/17/16 12/17/16 03:01 03:30 03:45 Temperature Pulse Rate 70 60 58 Respiratory 30 25 25 Rate Blood Pressure 134/49 137/49 (mmHg) O2 Sat by Pulse 98 98 98 Oximetry 12/17/16 12/17/16 12/17/16 04:00 04:15 04:30 Temperature 97.4 F Pulse Rate 56 68 57 Respiratory 24 25 25 Rate Blood Pressure 131/52 122/63 135/45 (mmHg) O2 Sat by Pulse 99 99 99 Oximetry 12/17/16 12/17/16 12/17/16 04:45 05:00 05:15 Temperature Pulse Rate 56 56 64 Respiratory 25 26 31 Rate Blood Pressure 133/48 142/50 139/48 (mmHg) O2 Sat by Pulse 99 99 100 Oximetry 12/17/16 12/17/16 12/17/16 05:30 05:45 06:00 Temperature Pulse Rate 58 58 79 Respiratory 24 24 25 Rate Blood Pressure 149/47 140/77 (mmHg) O2 Sat by Pulse 99 100 99 Oximetry 12/17/16 12/17/16 12/17/16 06:01 06:15 06:30 Temperature Pulse Rate 78 69 60 Respiratory 22 23 19 Rate Blood Pressure 167/58 143/63 151/51 (mmHg) O2 Sat by Pulse 99 98 98 Oximetry 12/17/16 12/17/16 12/17/16 06:45 07:00 07:15 Temperature Pulse Rate 61 62 64 Respiratory 29 27 25 Rate Blood Pressure 151/55 146/68 147/58 (mmHg) O2 Sat by Pulse 98 99 98 Oximetry 12/17/16 12/17/16 12/17/16 07:30 07:33 07:45 Temperature 99.7 F Pulse Rate 64 69 Respiratory 18 29 Rate Blood Pressure 147/59 152/81 (mmHg) O2 Sat by Pulse 98 98 Oximetry 12/17/16 08:00 Temperature Pulse Rate 76 Respiratory 25 Rate Blood Pressure 162/63 (mmHg) O2 Sat by Pulse 99 Oximetry Oxygen Devices in Use Now: Nasal Cannula - 3L Appearance: NAD, laying in bed Respiratory: - - Lung sounds with exp wheezing and diminished Cardiovascular: RRR, - - Grade 2/6 systolic murmur heard best at the left upper sternal border Abdominal: NL Sounds; No Tenderness; No Distention Extremities: No Edema Skin: No Rash or Ulcers Neurological: Alert and Oriented x 3, NL Muscle Strength and Tone Lines/Tubes/Other Access: Clean, Dry and Intact Peripheral IV - site benign Nutrition: Taking PO's Result Diagrams: 12/17/16 08:08 12/17/16 08:08 Additional Lab and Data: Microbiology and Other Data: Microbiology 12/13/16 21:00 Gram Stain - Final Sputum 12/13/16 18:30 Gram Stain - Final Sputum 12/14/16 04:00 Legionella Urinary Antigen - Final Urine Negative Legionella Streptococcus pneumoniae Ag Screen - Final Negative S. pneumo Antigen 12/13/16 18:12 Influenza Types A,B Antigen ([facility]SE [facility]FAEL) - Final Nasal Specimen received for Influenza A/B Molecular testing Assess/Plan/Problems-Billing Assessment: Ms. Pearce is a 76 yo female with PMH significant for DM, COPD, chronic hypoxic respiratory failure, CAD, hx lung and breast CA who presented to the emergency room with concerns for back and thigh pain and was found to have pneumonia. - Patient Problems (1) Pneumonia Code(s): J18.9 - PNEUMONIA, UNSPECIFIED ORGANISM SNOMED Code(s): 831248422 Comment: - CT with new bilateral infiltrates - Leukocytosis, afebrile - No Leukocytosis, but bandemia of 47% and CRP of ~ 403 on admission, improving - Sputum with S. peumo repeat sputum with normal victoriano - Blood cultures no growth day 3 - Urine negative for Legionella and S. Pneumo antigens - ID consult, input appreciated - Continue Ceftriaxone (while here), then change to PO at discharge (2) Acute respiratory failure with hypoxia Code(s): J96.01 - ACUTE RESPIRATORY FAILURE WITH HYPOXIA SNOMED Code(s): 14945319 Comment: - Acute on chronic. - increased O2 needs, tachypneic - Pt required BiPAP yesterday - Now on 3L via NC (3) COPD (chronic obstructive pulmonary disease) Code(s): J44.9 - CHRONIC OBSTRUCTIVE PULMONARY DISEASE, UNSPECIFIED SNOMED Code(s): 98812352 Comment: - With chronic hypoxic respiratory failure, on home O2 - 2L via NC. - No signs of exacerbation at this time. - Continue Dulera, Spiriva, nebulizers, and prednisone taper. (4) Diabetes Code(s): E11.9 - TYPE 2 DIABETES MELLITUS WITHOUT COMPLICATIONS SNOMED Code(s) : 80184766 Comment: - Diet controlled - Glucose 80-180's - Blood glucose checks AC - Cotninue Lispro SS (5) HTN (hypertension) Code(s): I10 - ESSENTIAL (PRIMARY) HYPERTENSION SNOMED Code(s): 20198060 Comment: - SBP 140-170's. - Continue metoprolol. (6) HLD (hyperlipidemia) Code(s): E78.5 - HYPERLIPIDEMIA, UNSPECIFIED SNOMED Code(s): 09081571 Comment: - Continue statin. (7) Hypothyroidism Code(s): E03.9 - HYPOTHYROIDISM, UNSPECIFIED SNOMED Code(s): 89913562 Comment: - TSH 0.18 on 11/16/16 - Continue levothyroxine - F/u thyroid studies 6 weeks from previous (8) CAD (coronary artery disease) Code(s): I25.10 - ATHSCL HEART DISEASE OF [place] CORONARY ARTERY W/O ANG PCTRS SNOMED Code(s): 11943922 Comment: - Continue ASA, statin, metoprolol. (9) GERD (gastroesophageal reflux disease) Code(s): K21.9 - GASTRO-ESOPHAGEAL REFLUX DISEASE WITHOUT ESOPHAGITIS SNOMED Code(s): 805895421 Comment: - Continue omeprazole. (10) DVT prophylaxis Code(s): RPE8034 - SNOMED Code(s): 378450171 Comment: - SQ Heparin (11) DNR (do not resuscitate) Comment: Status and Disposition: Inpatient. Plan for discharge to home when medically stable.
[2016-12-17 08:59] LABS: Mean Platelet Volume 8 um3 (7.4-10.4)
[2016-12-17] MEDS: cefTRIAXone VIAL(*) 1,000 MG in NS 0.9% 50 ML* 50 ML IVPB SCH (17:34)
[2016-12-17] MEDS: Albuterol HFA INHALER* 8 gm MDI INH PRN (19:10)
[2016-12-17] MEDS: Atorvastatin* 20 MG TAB PO SCH (20:12)
[2016-12-18] MEDS: Heparin VIAL(*) 5000 UNITS/ML VIAL (FIVE THOUSAND) SUBCUT SCH ×3 (05:37→21:59)
[2016-12-18] MEDS: Levothyroxine TAB* 50 MCG TAB PO SCH (05:38)
[2016-12-18 06:02] LABS: Hematocrit 31 % (35-47); Hemoglobin 10.4 g/dl (12.0-16.0); Mean Corpuscular HGB Conc 33 g/dl (31-36); Mean Corpuscular Hemoglobin 29 pg (27-31); Mean Corpuscular Volume 88 fL (80-97); Mean Platelet Volume 7 um3 (7.4-10.4); Red Blood Count 3.55 10^6/ul (4.0-5.4); Red Cell Distribution Width 14 % (10.5-15); White Blood Count 14.3 10^3/ul (3.5-10.8)
[2016-12-18 06:03] LABS: Add Diff/Slide Review? Slide Review Added; Comments Flag Yes
[2016-12-18 06:26] LABS: BUN/Creatinine Ratio 43.2 (8-20); Calcium 8.4 mg/dL (8.6-10.3); EGFR African American 178.8 (>60); Potassium 3.6 mmol/L (3.5-5.0)
[2016-12-18] MEDS: Insulin LISPRO* 1 UNITS UNIT SUBCUT SCH ×3 (07:41→16:52)
[2016-12-18] MEDS: Omeprazole CAP* 20 MG PO SCH (08:34)
[2016-12-18] MEDS: Aspirin EC Low Dose* 81 MG TAB.EC PO SCH (08:35)
[2016-12-18] MEDS: Citalopram TAB* 20 MG PO SCH (08:35)
[2016-12-18] MEDS: Metoprolol Succinate XL TAB* 50 MG PO SCH (08:35)
[2016-12-18] MEDS: Ascorbic Acid TAB* 500 MG PO SCH (08:36)
[2016-12-18] MEDS: Oxybutynin XL TAB* 5 MG PO SCH (08:36)
[2016-12-18] MEDS: predniSONE TAB* 20 MG PO SCH (08:36)
[2016-12-18] MEDS ORDERED: Potassium Chlor TAB* 20 MEQ TAB.ER PO ONE (08:45)
[2016-12-18] MEDS ORDERED: Furosemide IV* 10 MG/ML 2 ML VIAL (20 MG) IV ONE (08:49)
--- NOTE | 2016-12-18 09:08 | PN ---
Subjective Date of Service: 12/18/16 Interval History: Patient seen and examined at bedside. Patient states that her breathing is much better this morning. She only tolerated BiPAP for about 3 hours last night. She states she has a productive cough. She is able to speak without significant shortness of breath. Family History: Unchanged from Admission Social History: Unchanged from Admission Past Medical History: Unchanged from Admission Objective Active Medications: Acetaminophen (Tylenol Tab*) 650 mg PO Q6H PRN Albuterol (Ventolin Hfa Inhaler*) 2 puff INH Q6HR PRN Albuterol (Ventolin 2.5 Mg/3 Ml Neb.Melita*) 2.5 mg INH Q4H PRN Ascorbic Acid (Vitamin C Tab*) 500 mg PO DAILY [facility] Aspirin (Aspirin Ec Low Dose*) 81 mg PO DAILY [facility] Atorvastatin Calcium (Lipitor*) 20 mg PO BEDTIME [facility] Citalopram Hydrobromide (Celexa Tab*) 20 mg PO DAILY [facility] Furosemide (Lasix Iv*) 20 mg IV ONCE ONE Heparin Sodium (Porcine) (Heparin Vial(*)) 5,000 units SUBCUT Q8HR [facility] Ceftriaxone Sodium 1,000 mg/ (Sodium Chloride) 50 mls @ 200 mls/hr IVPB Q24H [facility] Insulin Human Lispro (Humalog*) 0 units SUBCUT AC [facility] Levothyroxine Sodium (Synthroid Tab*) 50 mcg PO 0600 [facility] Metoprolol Succinate (Toprol Xl Tab*) 50 mg PO DAILY [facility] Mometasone Furoate/Formoterol Fumar (Dulera 200/5 Mdi*) 2 puff INH BID [facility] Morphine Sulfate (Morphine Inj (Syringe)*) 1 mg IV Q1H PRN Omeprazole (Prilosec Cap*) 40 mg PO DAILY [facility] Oxybutynin Chloride (Ditropan Xl Tab*) 10 mg PO DAILY [facility] Potassium Chloride (Klor Con Er Tab*) 40 meq PO ONCE ONE Prednisone (Deltasone Tab*) 40 mg PO DAILY [facility] Prednisone (Deltasone Tab*) 30 mg PO DAILY [facility] Prochlorperazine Edisylate (Compazine Inj*) 5 mg IV Q6H PRN Tiotropium [place] (Spiriva Cap.Inh*) 1 cap INH DAILY [facility] 12/18/16 12/18/16 12/18/16 07:00 07:15 07:30 Temperature 97.1 F Pulse Rate 64 81 Respiratory 26 33 Rate Blood Pressure 159/61 164/64 (mmHg) O2 Sat by Pulse 99 98 Oximetry Oxygen Devices in Use Now: Nasal Cannula - 3L Appearance: sitting up in bed, NAD Eyes: No Scleral Icterus, PERRLA Ears/Nose/Mouth/Throat: NL Teeth, Lips, Gums Neck: NL Appearance and Movements; NL JVP Respiratory: Symmetrical Chest Expansion and Respiratory Effort, - - no wheezing ; decreased at bases. Cardiovascular: NL Sounds; No Murmurs; No JVD Abdominal: NL Sounds; No Tenderness; No Distention Extremities: No Edema Skin: No Rash or Ulcers Neurological: Alert and Oriented x 3, NL Muscle Strength and Tone Result Diagrams: 12/18/16 05:35 12/18/16 05:35 Additional Lab and Data: Assess/Plan/Problems-Billing Ms. Pearce is a 76 yo female with PMH significant for DM, COPD, chronic hypoxic respiratory failure, CAD, hx lung and breast CA who presented to the emergency room with concerns for back and thigh pain and was found to have acute on chronic hypoxic respiratory failure from bilateral pneumonia. - Patient Problems (1) Acute respiratory failure with hypoxia Comment: Acute on chronic from PNA and COPD. She did not tolerate BiPAP very well. Will give some Lasix for diuresis given CXR finsing yesterday. She is positive over the course of her hospitalization. Wean oxygen as tolerated. (2) Pneumonia Comment: CT on admission has bilateral infiltrated. Continue Ceftriaxone. WBCs elevated last two days which could be bands maturing from a few days ago. Will recheck in AM. (3) COPD (chronic obstructive pulmonary disease) Comment: On home O2 - 2L via [place]. Not in acute exacerbation at this time. Continue Dulera, Spiriva, nebulizers, and prednisone taper. (4) Diabetes Comment: Controlled. Continue sliding scale coverage PRN. (5) CAD (coronary artery disease) Comment: Continue ASA, statin, metoprolol. (6) HLD (hyperlipidemia) Comment: Continue statin. (7) HTN (hypertension) Comment: Controlled. Continue metoprolol. (8) Hypothyroidism Comment: TSH 0.18 on 11/16/16. Continue levothyroxine at 50mcg. F/U thyroid studies on 12/21 (6 weeks). (9) GERD (gastroesophageal reflux disease) Comment: Continue omeprazole. (10) DVT prophylaxis Comment: SQ Heparin (11) DNR (do not resuscitate) Status and Disposition: Inpatient. Plan for discharge to home when medically stable.
[2016-12-18] MEDS: Tiotropium CAP.INH* CAP.INH/18 MCG (USE ORDER SET !) INH SCH (09:27)
[2016-12-18] MEDS: Mometasone/Formoter 200/5 MDI INH SCH ×2 (09:27→19:49)
[2016-12-18] MEDS: cefTRIAXone VIAL(*) 1,000 MG in NS 0.9% 50 ML* 50 ML IVPB SCH (17:41)
[2016-12-18] MEDS: Atorvastatin* 20 MG TAB PO SCH (21:59)
[2016-12-19] MEDS: Heparin VIAL(*) 5000 UNITS/ML VIAL (FIVE THOUSAND) SUBCUT SCH ×3 (06:40→22:14)
[2016-12-19] MEDS: Levothyroxine TAB* 50 MCG TAB PO SCH (06:40)
[2016-12-19 07:16] LABS: Hematocrit 35 % (35-47); Hemoglobin 11.3 g/dl (12.0-16.0); Mean Corpuscular HGB Conc 33 g/dl (31-36); Mean Corpuscular Hemoglobin 29 pg (27-31); Mean Corpuscular Volume 88 fL (80-97); Mean Platelet Volume 7 um3 (7.4-10.4); Red Blood Count 3.94 10^6/ul (4.0-5.4); Red Cell Distribution Width 14 % (10.5-15); White Blood Count 15.4 10^3/ul (3.5-10.8)
[2016-12-19 07:27] LABS: BUN/Creatinine Ratio 47.9 (8-20); Calcium 8.7 mg/dL (8.6-10.3); EGFR African American 161.7 (>60); EGFR Non-African American 125.7 (>60)
[2016-12-19 07:31] LABS: Add Diff/Slide Review? Slide Review Added; Comments Flag Yes
[2016-12-19] MEDS: Tiotropium CAP.INH* CAP.INH/18 MCG (USE ORDER SET !) INH SCH (07:50)
[2016-12-19] MEDS: Ascorbic Acid TAB* 500 MG PO SCH (07:51)
[2016-12-19] MEDS: predniSONE TAB* 10 MG PO SCH (07:51)
[2016-12-19] MEDS: Citalopram TAB* 20 MG PO SCH (07:52)
[2016-12-19] MEDS: Aspirin EC Low Dose* 81 MG TAB.EC PO SCH (07:52)
[2016-12-19] MEDS: Oxybutynin XL TAB* 5 MG PO SCH (07:52)
[2016-12-19] MEDS: Metoprolol Succinate XL TAB* 50 MG PO SCH (07:52)
[2016-12-19] MEDS: Omeprazole CAP* 20 MG PO SCH (07:52)
[2016-12-19] MEDS: Insulin LISPRO* 1 UNITS UNIT SUBCUT SCH ×3 (08:04→17:03)
[2016-12-19] MEDS: Mometasone/Formoter 200/5 MDI INH SCH ×2 (09:25→20:14)
--- NOTE | 2016-12-19 11:09 | PN ---
Subjective Date of Service: 12/19/16 Interval History: Patient seen and examined at bedside. Patient states she feels better. She has walked to the bathroom but not out in the hallway yet. Oxygen down to 3L. Persistent cough. Afebrile. Family History: Unchanged from Admission Social History: Unchanged from Admission Past Medical History: Unchanged from Admission Objective Active Medications: Acetaminophen (Tylenol Tab*) 650 mg PO Q6H PRN Albuterol (Ventolin Hfa Inhaler*) 2 puff INH Q6HR PRN Albuterol (Ventolin 2.5 Mg/3 Ml Neb.Melita*) 2.5 mg INH Q4H PRN Ascorbic Acid (Vitamin C Tab*) 500 mg PO DAILY [facility] Aspirin (Aspirin Ec Low Dose*) 81 mg PO DAILY [facility] Atorvastatin Calcium (Lipitor*) 20 mg PO BEDTIME [facility] Citalopram Hydrobromide (Celexa Tab*) 20 mg PO DAILY [facility] Heparin Sodium (Porcine) (Heparin Vial(*)) 5,000 units SUBCUT Q8HR [facility] Ceftriaxone Sodium 1,000 mg/ (Sodium Chloride) 50 mls @ 200 mls/hr IVPB Q24H [facility] Insulin Human Lispro (Humalog*) 0 units SUBCUT AC [facility] Levothyroxine Sodium (Synthroid Tab*) 50 mcg PO 0600 [facility] Metoprolol Succinate (Toprol Xl Tab*) 50 mg PO DAILY [facility] Mometasone Furoate/Formoterol Fumar (Dulera 200/5 Mdi*) 2 puff INH BID [facility] Morphine Sulfate (Morphine Inj (Syringe)*) 1 mg IV Q1H PRN Omeprazole (Prilosec Cap*) 40 mg PO DAILY [facility] Oxybutynin Chloride (Ditropan Xl Tab*) 10 mg PO DAILY [facility] Prednisone (Deltasone Tab*) 30 mg PO DAILY [facility] Prochlorperazine Edisylate (Compazine Inj*) 5 mg IV Q6H PRN Tiotropium [place] (Spiriva Cap.Inh*) 1 cap INH DAILY [facility] Vital Signs 12/18/16 12/18/16 12/18/16 11:24 11:30 12:28 Temperature 98.2 F Pulse Rate 78 Respiratory 22 22 22 Rate Blood Pressure 158/74 (mmHg) O2 Sat by Pulse 95 Oximetry 12/18/16 12/18/16 12/18/16 12:30 15:52 19:53 Temperature 97.9 F Pulse Rate 63 64 Respiratory 22 18 20 Rate Blood Pressure 104/46 (mmHg) O2 Sat by Pulse 98 99 Oximetry 12/18/16 12/18/16 12/18/16 19:54 19:55 20:30 Temperature 97.6 F Pulse Rate 63 Respiratory 20 16 Rate Blood Pressure 113/47 (mmHg) O2 Sat by Pulse 99 99 Oximetry 12/18/16 12/19/16 12/19/16 23:52 03:15 04:00 Temperature 97.7 F 98.0 F Pulse Rate 65 68 Respiratory 16 16 16 Rate Blood Pressure 134/51 144/56 (mmHg) O2 Sat by Pulse 100 100 Oximetry 12/19/16 12/19/16 12/19/16 07:39 08:10 09:27 Temperature 98.1 F Pulse Rate 71 70 Respiratory 18 18 16 Rate Blood Pressure 151/54 (mmHg) O2 Sat by Pulse 98 95 Oximetry Oxygen Devices in Use Now: Nasal Cannula - 3L Appearance: sitting up in bed, NAD Eyes: No Scleral Icterus, PERRLA Ears/Nose/Mouth/Throat: NL Teeth, Lips, Gums Neck: NL Appearance and Movements; NL JVP Respiratory: Clear to Auscultation, - - decreased at bases; no wheezing heard Cardiovascular: NL Sounds; No Murmurs; No JVD Abdominal: NL Sounds; No Tenderness; No Distention Extremities: No Edema Skin: No Rash or Ulcers Neurological: Alert and Oriented x 3, NL Muscle Strength and Tone Lines/Tubes/Other Access: Clean, Dry and Intact Peripheral IV Nutrition: Taking PO's Result Diagrams: 12/19/16 07:01 12/19/16 07:01 Additional Lab and Data: Assess/Plan/Problems-Billing Ms. Pearce is a 76 yo female with PMH significant for DM, COPD, chronic hypoxic respiratory failure, CAD, hx lung and breast CA who presented to the emergency room with concerns for back and thigh pain and was found to have acute on chronic hypoxic respiratory failure from bilateral pneumonia. - Patient Problems (1) Acute respiratory failure with hypoxia Comment: Acute on chronic from PNA and COPD. Oxygen now down to 3L with sat 95% . Will turn down to 2L and ambulate. No additional Lasix for today. (2) Pneumonia Comment: CT on admission has bilateral infiltrates. Continue Ceftriaxone. WBCs persistently elevated no other s/s of worsening infection. Recheck in AM. (3) COPD (chronic obstructive pulmonary disease) Comment: On home O2 - 2L via [place]. Not in acute exacerbation at this time. Continue Dulera, Spiriva, nebulizers, and prednisone taper. (4) Diabetes Comment: Controlled. Continue sliding scale coverage PRN. (5) CAD (coronary artery disease) Comment: Continue ASA, statin, metoprolol. (6) HLD (hyperlipidemia) Comment: Continue statin. (7) HTN (hypertension) Comment: Controlled. Continue metoprolol. (8) Hypothyroidism Comment: TSH 0.18 on 11/16/16. Continue levothyroxine at 50mcg. F/U thyroid studies on 12/21 (6 weeks). (9) GERD (gastroesophageal reflux disease) Comment: Continue omeprazole. (10) DVT prophylaxis Comment: SQ Heparin (11) DNR (do not resuscitate) Status and Disposition: Inpatient. Will ambulate today and likely discharge tomorrow.
[2016-12-19] MEDS: cefTRIAXone VIAL(*) 1,000 MG in NS 0.9% 50 ML* 50 ML IVPB SCH (17:04)
[2016-12-19] MEDS: Atorvastatin* 20 MG TAB PO SCH (22:14)
[2016-12-20 05:49] LABS: Hematocrit 33 % (35-47); Hemoglobin 10.9 g/dl (12.0-16.0); Mean Corpuscular HGB Conc 33 g/dl (31-36); Mean Corpuscular Hemoglobin 29 pg (27-31); Mean Corpuscular Volume 88 fL (80-97); Mean Platelet Volume 7 um3 (7.4-10.4); Red Blood Count 3.71 10^6/ul (4.0-5.4); Red Cell Distribution Width 14 % (10.5-15); White Blood Count 13.8 10^3/ul (3.5-10.8)
[2016-12-20 05:51] LABS: Add Diff/Slide Review? Slide Review Added; Comments Flag Yes
[2016-12-20] MEDS: Heparin VIAL(*) 5000 UNITS/ML VIAL (FIVE THOUSAND) SUBCUT SCH (07:42)
[2016-12-20] MEDS: Levothyroxine TAB* 50 MCG TAB PO SCH (07:44)
[2016-12-20] MEDS: Mometasone/Formoter 200/5 MDI INH SCH (08:45)
[2016-12-20] MEDS: Tiotropium CAP.INH* CAP.INH/18 MCG (USE ORDER SET !) INH SCH (08:45)
[2016-12-20] MEDS: Insulin LISPRO* 1 UNITS UNIT SUBCUT SCH ×2 (08:56→12:10)
[2016-12-20 08:58] VITALS: BP 134/61
--- NOTE | 2016-12-20 09:04 | PN ---
Progress Note - Progress Note Date of Service: 12/20/16 SOAP: Subjective: CC: pneumonia HPI: 76 year old woman with COPD and now pneumonia. Breathing back to baseline. No cough, fever, rash, or diarrhea. Objective: [] Vital Signs Temp 36.7 C 12/20/16 07:45 Pulse 68 12/20/16 08:48 Resp 18 12/20/16 08:48 BP 134/61 12/20/16 07:45 Pulse Ox 92 12/20/16 08:48 Intake & Output 12/19/16 12/20/16 12/20/16 18:59 06:59 18:59 Intake Total 1130 Output Total 200 Balance 1130 -200 Weight 93 lb 8 oz Intake: Oral 1130 Output: Urine 200 Other: # Voids 0 Gen:awake, no distress; HEENT: no thrush Heart:RRR no murmur Lungs: Rhonchi R base Abd:+BS NTND soft Skin: no rash MSK: no spine tenderness Laboratory Results - last 24 hr 12/19/16 12/19/16 12/20/16 11:45 16:32 05:39 WBC 13.8 H RBC 3.71 L Hgb 10.9 L Hct 33 L MCV 88 MCH 29 MCHC 33 RDW 14 Plt Count 353 MPV 7 L Neut % (Auto) 75.5 Lymph % (Auto) 17.5 L Stark % (Auto) 6.6 Eos % (Auto) 0.2 Baso % (Auto) 0.2 Absolute Neuts (auto) 10.4 H Absolute Lymphs (auto) 2.4 Absolute Monos (auto) 0.9 H Absolute Eos (auto) 0 Absolute Basos (auto) 0 Absolute Nucleated RBC 0 Nucleated RBC % 0 POC Glucose (mg/dL) 243 H 189 H 12/20/16 07:51 WBC RBC Hgb Hct MCV MCH MCHC RDW Plt Count MPV Neut % (Auto) Lymph % (Auto) Stark % (Auto) Eos % (Auto) Baso % (Auto) Absolute Neuts (auto) Absolute Lymphs (auto) Absolute Monos (auto) Absolute Eos (auto) Absolute Basos (auto) Absolute Nucleated RBC Nucleated RBC % POC Glucose (mg/dL) 121 H Assessment: 1. Acute on chronic hypoxemic respiratory failure, present on admission 2. Pneumococcal pneumonia 3. severe COPD 4. chronic corticosteroid use Plan: 1. keflex 500 mg po tid x3 more days 2. corticosteroid, supplemental O2 per primary team
[2016-12-20] MEDS: Metoprolol Succinate XL TAB* 50 MG PO SCH (09:09)
[2016-12-20] MEDS: predniSONE TAB* 10 MG PO SCH (09:09)
[2016-12-20] MEDS: Ascorbic Acid TAB* 500 MG PO SCH (09:09)
[2016-12-20] MEDS: Omeprazole CAP* 20 MG PO SCH (09:10)
[2016-12-20] MEDS: Citalopram TAB* 20 MG PO SCH (09:10)
[2016-12-20] MEDS: Aspirin EC Low Dose* 81 MG TAB.EC PO SCH (09:10)
[2016-12-20] MEDS: Oxybutynin XL TAB* 5 MG PO SCH (09:10)
[2016-12-20] MEDS ORDERED: Cephalexin CAP* 500 MG PO ONE (11:25)
--- NOTE | 2016-12-21 07:24 | DS ---
DISCHARGE SUMMARY: DATE OF ADMISSION: 12/13/16 DATE OF DISCHARGE: 12/20/16 PRIMARY CARE PHYSICIAN: Dr. Rosanne Martinez. MY ATTENDING WHILE IN THE HOSPITAL: Dr. Isaías Sierra * (DICTATED BY ROGELIO KNOTT) PRIMARY DISCHARGE DIAGNOSES: 1. Bilateral lower lobe pneumonia. 2. Oxygen-dependent chronic obstructive pulmonary disease. 3. Acute respiratory failure with hypoxia. SECONDARY DISCHARGE DIAGNOSES: 1. Aortic stenosis. 2. [id number] diabetes mellitus type 2. 3. Coronary artery disease. 4. History of myocardial infarction. 5. Hypothyroidism. 6. Hyperlipidemia. 7. History of lung cancer. 8. History of breast cancer. 9. Depression. 10. Hypertension. 11. Peripheral artery disease. 12. Gastroesophageal reflux disease. 13. Osteopenia. CONSULTING PROVIDERS: Dr. Dillon Giordano, Infectious Disease. STUDIES DONE WHILE IN THE HOSPITAL: Abdomen and pelvis CT from 12/13/16 read as bilateral basilar pulmonary infiltrates, new compared with 11/16/16, few punctate nonobstructing right renal calyceal stones, negative for obstructive uropathy. Decompressed IVC indicating low volume status. within normal size limits, the noted GE junction lymph nodes demonstrate interval increase in size. Degenerative spondylosis and facet joint osteoarthritis most advanced at L5-S1. No suspicious focal osseous lesions evident. Chest x-ray from 12/13/16 read as patchy consolidation of the left mid to lower lung zone, new compared with the prior exam without volume loss, more consistent with pneumonia. Chest x-ray from 12/16/16 read as progressive interstitial and alveolar infiltrates suspicious for CHF and pulmonary edema. Electrocardiogram from 12/13/16 read as normal sinus rhythm, no ST segment changes, QT prolongation with QTc 513, normal axis, no other abnormalities. MEDICATIONS AT DISCHARGE: 1. Ditropan XL 10 mg p.o. daily. 2. Prilosec 40 mg p.o. daily. 3. Simvastatin 40 mg p.o. at bedtime. 4. Vitamin C 500 mg p.o. daily. 5. Aspirin 81 mg p.o. daily. 6. Metoprolol succinate 50 mg p.o. daily. 7. Celexa 20 mg p.o. daily. 8. Albuterol 2 puffs q.6 hours as needed. 9. Advair 250/50 one puff b.i.d. 10. Spiriva 18 mcg cap 1 inhalation daily. 11. Levothyroxine 50 mcg p.o. q.a.m. 12. Keflex 100 mg p.o. t.i.d. x11. 13. Prednisone 30 mg p.o. daily x7. New medications on discharge: 1. Keflex 100 mg p.o. t.i.d. 2. Prednisone 30 mg p.o. daily. HOSPITAL COURSE: This is a brief summary of the patient's admission. For more details, please see the history and physical from Tanya Sadler NP, from . In brief, the patient is a 76-year-old female with past medical history significant for COPD, aortic stenosis, diabetes mellitus type 2, coronary artery disease, chronic hypoxic respiratory failure, who presents to the hospital with low back pain and difficulty urinating. The patient was admitted on 12/08/16 for a COPD exacerbation and was feeling at her baseline up until now. The pain is worse with deep inspiration. The patient has been having worsening shortness of breath over 2 months. The patient was having decreased urine output without blood. The patient was concerned for kidney stone. The patient's CT scan showed bilateral lower lobe infiltrates and her chest x-ray showed left middle and lower lobe infiltrates as stated above. The patient had bandemia at 47% and CRP of 402.64. The patient also had a decompressed IVC indicating low volume state. The patient was admitted for presumed pneumonia with sepsis and dehydration. The patient was started on cefepime and Levaquin and continued on all her other home medications and was started on prednisone IV. The patient improved slightly overnight, but still continued to have shortness of breath at rest with 3 L of oxygen. Infectious Disease was consulted and her antibiotics were changed from Levaquin and ceftriaxone and cefepime to just ceftriaxone. The patient then continued to improve overnight from 12/14/16 to 12/15/16. The patient's blood glucoses were being checked a.c. with sliding scale insulin and they were staying between 100s and 180s. The patient states that her blood sugar is usually not uncontrolled at home when she is not on steroids. The patient's blood pressure was fluctuating between 100s up to 170s systolic. The patient denied subjective fevers and had no documented fevers. The patient's white blood cell count on admission was normal at 6.8, but continued to start to increase on 12/16/16 to 10.0 and then was found to be 14.9 on 12/17/16. On 12/16/16, the patient continued to improve , but then in the afternoon desatted to oxygen saturation of 60s to 80s with labored breathing and very diminished lung sounds. Chest x-ray and ABGs were ordered with vascular congestion. The patient's ABG showed respiratory acidosis with calculated anion gap of 10.5. The patient was started on BiPAP with improvement in her anion gap and was kept on BiPAP overnight. The patient improved and was able to be weaned off of BiPAP back on 2 L nasal cannula. The patient had positive fluid balance of approximately 4 L from 12/15/16 to . On 12/18/16, the patient was attempted to be kept on BiPAP overnight, but did not tolerate it except for about 3 hours. She was able to speak without significant shortness of breath. The patient was given Lasix for diuresis and thus continued to improve her shortness of breath. Overall, the patient was given 40 mg of IV furosemide and was negative of 280 mL of urine on 12/19/16. The patient lost 4 pounds from 12/18/16 to 12/20/16. The patient's leukocytosis decreased from a peak of 15.4 on 12/19/16 to 13.8 on 12/20/16. The patient's blood glucoses during her hospitalization despite oral prednisone therapy never went above 243 and were generally between 100 and 200. The patient felt much better and was almost down to her normal level of shortness of breath. On 12/19/16, the patient was able to walk in the hallway with the nurse on 2 L of oxygen, which is her home dose and never dropped below 94% oxygen saturation. On 12/20/16, the patient was feeling very well and was entirely back to baseline. The patient requested to go home and the plan was for her to go home on 3 days of Keflex 500 mg t.i.d. to finish a 10-day course of beta-lactam antibiotics. The patient was also on 30 mg of prednisone, which should be continued on for 7 days after discharge and then that would be stopped. The patient would resume all of her home inhalers on discharge. The patient was in agreement with all these plans, but stated that she would need assistance paying the co-pays on her multiple inhalers. The patient was agreeable to meet with Elizabeth Stockton, the [facility] navigator, and apply for a Medicaid application. The patient would follow up with this after discharge. PHYSICAL EXAMINATION ON THE DAY OF DISCHARGE: General: The patient is a 76- year- old female, who is emaciated and appears stated age, sitting in hospital bed, in no acute distress. Vital Signs: On 12/20/16 at 0745, temperature 98.1 , pulse rate of 64, respiratory rate 18, oxygen saturation 100% on 2 L oxygen, blood pressure 134/61. HEENT: Head: Normocephalic, atraumatic. Sclerae anicteric. No conjunctival injection. Mucous membranes moist. Pharynx: Nonerythematous. Neck: Supple, nontender. No lymphadenopathy. No carotid bruits auscultated. Cardiac: Grade 4/6 systolic ejection murmur heard best at the right upper sternal border with no S2 auscultated. No other clicks, gallops , or rubs. Pulses 2+ bilaterally in the radial, dorsalis pedis, and posterior tibialis areas. No edema. Respiratory: Diminished in the bilateral lower lobes , slight wheezes heard in the bilateral middle lobes. No other adventitious lung sounds. Abdomen: Nontender, nondistended. No hepatosplenomegaly. Bowel sounds present and normoactive in all 4 quadrants. Genitourinary: No suprapubic tenderness. No CVA tenderness. Skin: Clean, dry, intact, and pink. Neuro: Cranial nerves II through XII grossly intact. Normal gait. Psychiatric: The patient is very pleasant and cooperative. LABORATORY DATA ON THE DAY OF DISCHARGE: White blood cell count 13.8, hemoglobin 10.9, hematocrit 33. Chemistry from 12/19/16, sodium 141, potassium 4.0, carbon dioxide 33, anion gap 6, BUN 23, creatinine 0.48, glucose 97, calcium 8.7. DISCHARGE PLAN: The patient will be discharged home with Keflex for 3 days as stated above and prednisone 30 mg for 7 days. The patient will continue taking all of her home inhalers, which she was not taking before her admission due to cough after she is established with her financial assistance to afford these. The patient will follow up with funeral home assistant as scheduled. The patient will follow up with a craft worker as an appoint which was scheduled on her 11/18/16 hospitalization to investigate further her aortic stenosis. The patient should follow up with her primary care doctor within 1 week to assess her continued improvement on steroids and antibiotics as well as to discuss her other chronic medical conditions. Would recommend a hemoglobin A1c at this point as well as a TSH to assess any change in levothyroxine dose from her admission on 11/18/16. ACTIVITY: As tolerated with oxygen. DIET: Consistent carbohydrate without caffeine. TIME SPENT: Approximately 60 minutes were spent on this discharge, half of which was spent [id number] with the patient obtaining history and physical and discussing treatment plans. ROGELIO KNOTT [id number]/CPS #: [id number]
== END 2016-12-20 12:25 | disposition home or self-care (01) | DRG 193 ==
LOC: ED 15:07 → MED 17:59 → ICU 12-16 16:39 → MED 12-18 10:05
PROVIDERS: ADMIT Internal Medicine; ATTEND Internal Medicine
DX: J13 Pneumonia due to Streptococcus pneumoniae (principal); J96.21 Acute and chronic respiratory failure with hypoxia; E11.51 Type 2 diabetes mellitus with diabetic peripheral angiopathy without gangrene; J44.9 Chronic obstructive pulmonary disease, unspecified; I65.29 Occlusion and stenosis of unspecified carotid artery; I35.0 Nonrheumatic aortic (valve) stenosis; I25.10 Atherosclerotic heart disease of native coronary artery without angina pectoris; I11.9 Hypertensive heart disease without heart failure; E03.9 Hypothyroidism, unspecified; E78.5 Hyperlipidemia, unspecified; F32.9 Major depressive disorder, single episode, unspecified; M65.20 Calcific tendinitis, unspecified site; K21.9 Gastro-esophageal reflux disease without esophagitis; N39.41 Urge incontinence; M85.80 Other specified disorders of bone density and structure, unspecified site; Z66 Do not resuscitate; Z99.81 Dependence on supplemental oxygen; Z87.891 Personal history of nicotine dependence; Z85.3 Personal history of malignant neoplasm of breast; Z85.118 Personal history of other malignant neoplasm of bronchus and lung; Z82.3 Family history of stroke; Z81.8 Family history of other mental and behavioral disorders; Z83.3 Family history of diabetes mellitus; Z79.82 Long term (current) use of aspirin; Z79.899 Other long term (current) drug therapy; Z82.49 Family history of ischemic heart disease and other diseases of the circulatory system
CPT/HCPCS: 36415; 36600; 71010; 74176; 80048; 80053; 82803; 83605; 83735; 84484; 85025; 86140; 87040; 87070; 87077; 87186; 87205; 87502; 87641; 87899; 93005; 94640; 94660; 94760; A9270-GY; J0692; J0696; J0780; J1644; J1940; J2270; J3475; J7512

== ENCOUNTER 2018-03-27 09:30 | Inpatient (IN) | payer MEDICARE ==
[2018-03-27] MEDS ORDERED: NS 0.9% 1000 ML* 1,000 ML IV ONE (09:44)
--- NOTE | 2018-03-27 09:50 | ED ---
Shortness of Breath - HPI Summary HPI Summary: A 77 y/o F with pert PMHx: COPD presents to the ED with SOB onset a few days ago. She has been sick for the past week. Additionally, pt recently got over shingles. Associated sx: subjective fever, productive cough. She has been using home O2 24/7 for the past few days, she is unsure how much. She had a wellness check one week ago at PCP. Patient was a heavy smoker, but quit 5 years ago. - History of Current Complaint Chief Complaint: EDShortnessOfBreath Time Seen by Provider: 03/27/18 09:42 Hx Obtained From: Patient, Family/Carton Counter Feeder - daughter Onset/Duration: Lasting Days, Still Present Timing: Constant Current Severity: Severe Dyspnea At: Rest Alleviating Factors: Nothing Associated Signs & Symptoms: Cough (Productive), Fever - Allergy/Home Medications Allergies/Adverse Reactions: Allergies Allergy/AdvReac Type Severity Reaction Status Date / Time No Known Allergies Allergy Verified 12/13/16 15:48 Home Medications: Home Medications Famciclovir(NF) [Famvir(NF)] 500 mg PO TID 03/27/18 [History Confirmed 03/27/18] Sertraline* [Zoloft*] 25 mg PO DAILY 03/27/18 [History Confirmed 03/27/18] Tiotropium CAP.INH* [Spiriva CAP.INH*] 2 cap.inh INH DAILY 03/27/18 [History Confirmed 03/27/18] PMH/Surg Hx/FS Hx/Imm Hx Previously Healthy: No Endocrine/Hematology History: Reports: Hx Thyroid Disease Denies: Hx Diabetes Cardiovascular History: Reports: Hx Hypercholesterolemia, Hx Hypertension Respiratory History: Reports: Hx Chronic Obstructive Pulmonary Disease (COPD) - uses 2LNC at home, Hx Lung Cancer - Bilateral, Hx Pneumonia, Other Respiratory Problems/Disorders - HX LUNG AND BREAST CA Denies: Hx Asthma GI History: Reports: Hx Gastroesophageal Reflux Disease Denies: Hx Ulcer Musculoskeletal History: Reports: Hx Arthritis - hands and legs Sensory History: Reports: Hx Contacts or Glasses Denies: Hx Hearing Aid Opthamlomology History: Reports: Hx Contacts or Glasses - Cancer History Cancer Type, Location and Year: left breast ca, lung ca 2005, 2006(bilateral lungs) - Surgical History Surgery Procedure, Year, and Place: BREAST SURGERY. HYSTERECTOMY. BILATERAL LOBECTOMY - Immunization History Date of Influenza Vaccine: 12/08/16 Infectious Disease History: No Infectious Disease History: Denies: Hx Clostridium Difficile, Hx Hepatitis, Hx Human Immunodeficiency Virus (HIV), Traveled Outside the [place] in Last 30 Days - Family History Known Family History: Positive: Cardiac Disease - [place], Hypertension, Diabetes, Other - Suicide - Social History Occupation: Retired Lives: With Family Alcohol Use: Occasionally Hx Substance Use: No Substance Use Type: Reports: None Hx Tobacco Use: Yes - quit 2012 Smoking Status (MU): Former Smoker - Heavy Type: Cigarettes Have You Smoked in the Last Year: No Review of Systems Positive: Fever - subjective Positive: Shortness Of Breath, Cough - productive All Other Systems Reviewed And Are Negative: Yes Physical Exam - Summary Physical Exam Summary: Appearance: Well appearing, no pain distress Skin: warm, dry, reflects adequate perfusion Head/face: normal Eyes: EOMI, ESTHER, lenses implanted bilat ENT: mucous membranes dry Neck: supple, non-tender, no JVD Respiratory: Mildly diminished breath sounds, fine crackles at R base, no wheezes, tachypnic Cardiovascular: regular rate, systolic murmur, pulses symmetrical Abdomen: non-tender, soft Bowel Sounds: present Musculoskeletal: normal, strength/ROM intact, no edema Neuro: normal, sensory motor intact, A&Ox3 Triage Information Reviewed: Yes Vital Signs On Initial Exam: Initial Vitals Temp Pulse Resp BP Pulse Ox 97.5 F 89 20 140/81 95 03/27/18 09:33 03/27/18 09:33 03/27/18 09:33 03/27/18 09:33 03/27/18 09:33 Vital Signs Reviewed: Yes Diagnostics - Vital Signs Vital Signs Temp Pulse Resp BP Pulse Ox 03/27/18 09:33 97.5 F 89 20 140/81 95 - Laboratory Result Diagrams: 03/27/18 10:10 03/27/18 10:05 Lab Statement: Any lab studies that have been ordered have been reviewed, and results considered in the medical decision making process. - Radiology CXR Radiology Interpretation Completed By: Radiologist Summary of Radiographic Findings: IMPRESSION: #. Atelectasis versus small pneumonia infiltrate at the peripheral RIGHT lung base. #. Stigmata of advanced chronic obstructive pulmonary disease and emphysema with previous bilateral lobectomy. ED provider has reviewed this report. - EKG 0949 Cardiac Rate: NL - 84 bpm EKG Rhythm: Sinus Rhythm ST Segment: Normal Summary of EKG Findings: Normal axis, normal interval. Re-Evaluation - Re-Evaluation 1 Re-Evaluation Time: 10:45 Change: Improved Comment: Bringing up phlegm, is feeling mildly better, but is requesting admission. Course/Dx - Course Course Of Treatment: Nurse's notes reviewed. Patient with long-standing history of COPD, former heavy smoker, presents with respiratory difficulty and cough productive of a thick yellow sputum. Infiltrate seen in the right base. Patient feeling well enough to go home after breathing treatments, IV fluids and IV antibiotics. ABG indicates respiratory alkalosis. IV steroids given as well. Admit through hospitalist service. Replace potassium as needed. - Diagnoses Differential Diagnosis/HQI/PQRI: Positive: CHF, COPD Exacerbation, Pneumonia, Pneumothorax, Pulmonary Embolism, Pulmonary Edema Provider Diagnoses: COPD (chronic obstructive pulmonary disease), Right lower lobe pneumonia, Hypokalemia - Physician Notifications Discussed Care of Patient With: Apolinar Vera - hospitalist PA Time Discussed With Above Provider: 10:51 Instructed by Provider To: Admit As Inpatient - Critical Care Time Critical Care Time: 30-74 min - 30 MINS. CCT is EXCLUSIVE of separately billable procedures. Discharge - Sign-Out/Discharge Documenting (check all that apply): Patient Departure - ADMIT - Discharge Plan Condition: Fair Disposition: ADMITTED TO [facility] Referrals: Rosanne Martinez MD [Primary Care Provider] - - Billing Disposition and Condition Condition: FAIR Disposition: Admitted to [facility] - Attestation Statements Document Initiated by Sheri: Yes Documenting Scribe: Price Noyola Provider For Whom Sheri is Documenting (Include Credential): Dr. Joaquin Hand MD Scribe Attestation: Price Campos scribed for Dr. Joaquin Hand MD on 03/27/18 at 1139. Scribe Documentation Reviewed: Yes Provider Attestation: The documentation as recorded by the Price jaime accurately reflects the service I personally performed and the decisions made by me, Dr. Joaquin Hand MD Status of Scribe Document: Viewed
[2018-03-27] MEDS ORDERED: Albuterol 2.5 MG/3 ML NEB.SOL* (0.083%) INH ONE (09:51)
[2018-03-27] MEDS ORDERED: Albuterol/Ipratropium NEB.SOL* Albuterol 2.5 MG/Ipratropium 0.5 MG 3 ML ONE (09:51)
[2018-03-27] MEDS ORDERED: Albuterol/Ipratropium NEB.SOL* Albuterol 2.5 MG/Ipratropium 0.5 MG 3 ML INH ONE (09:54)
[2018-03-27] MEDS ORDERED: methylPREDNISolone 125 MG* 2 ML VIAL IV ONE (10:17)
[2018-03-27 10:45] LABS: Hematocrit 33 % (35-47); Hemoglobin 10.9 g/dl (12.0-16.0); Mean Corpuscular HGB Conc 33 g/dl (31-36); Mean Corpuscular Hemoglobin 28 pg (27-31); Mean Corpuscular Volume 85 fL (80-97); Mean Platelet Volume 7.1 fL (7.4-10.4); Platelet Count 386 10^3/ul (150-450); Red Blood Count 3.83 10^6/ul (4.00-5.40); Red Cell Distribution Width 13 % (10.5-15); White Blood Count 11.7 10^3/ul (3.5-10.8)
[2018-03-27] MEDS ORDERED: Levofloxacin 750 MG IVPREMIX(* 750 MG/150 ML BAG IVPB ONE (10:46)
[2018-03-27 11:02] LABS: INR 1.25 (0.77-1.02)
[2018-03-27 11:05] LABS: Influenza A Molecular NEGATIVE (Negative); Influenza B Molecular NEGATIVE (Negative)
[2018-03-27 11:29] LABS: Albumin 3.3 g/dL (3.2-5.2); Albumin/Globulin Ratio 0.8 (1-3); BUN/Creatinine Ratio 30.6 (8-20); C Reactive Protein 201.86 mg/L (<8.01); Calcium 9.2 mg/dL (8.6-10.3); EGFR African American 112.9 (>60); EGFR Non-African American 93.3 (>60); Globulin 4.1 g/dL (2-4); Potassium 2.9 mmol/L (3.5-5.0); Total Bilirubin 0.6 mg/dL (0.2-1.0); Total Protein 7.4 g/dL (6.4-8.9)
[2018-03-27 11:30] LABS: Troponin I 0.01 ng/mL (<0.04)
[2018-03-27 11:33] LABS: ABS Basophils 0.1 10^3/ul (0-0.2); ABS Eosinophils 0 10^3/ul (0-0.6); ABS Lymphocytes 1.6 10^3/ul (1.0-4.8); ABS Nucleated RBC 0 10^3/ul; Eosinophil % 0.3 %; Lymphocyte % 13.3 %; Nucleated Red Blood Cells % 0
[2018-03-27] MEDS ORDERED: KCL 20 MEQ/100 ML IVPREMIX* 20 MEQ/100 ML BAG IV ONE (11:33)
[2018-03-27] MEDS ORDERED: Potassium Chlor TAB* 20 MEQ TAB.ER PO ONE ×2 (11:33→21:00)
[2018-03-27] MEDS ORDERED: Magnesium Oxide TAB* 400 MG PO ONE (11:33)
[2018-03-27] MEDS ORDERED: Albuterol 2.5 MG/3 ML NEB.SOL* (0.083%) INH PRN (11:36)
[2018-03-27] MEDS ORDERED: Acetaminophen TAB* 325 MG PO PRN (11:36)
[2018-03-27] MEDS ORDERED: NS 0.9% 1000 ML* 1,000 ML IV SCH (11:45)
[2018-03-27 11:57] LABS: Magnesium 1.6 mg/dL (1.9-2.7)
[2018-03-27] MEDS ORDERED: FAMCICLOVIR 500 MG PO SCH (14:00)
--- NOTE | 2018-03-27 14:32 | HP ---
CC: Dr. Martinez * HISTORY AND PHYSICAL: DATE OF ADMISSION: 03/27/18 PRIMARY CARE PROVIDER: Dr. Martinez. ATTENDING PHYSICIAN WHILE IN THE HOSPITAL: Dr. Sindi Jasso * (report dictated by Apolinar Hemphill NP). CHIEF COMPLAINT: 1. Shortness of breath. 2. Cough. HISTORY OF PRESENT ILLNESS: Mrs. Pearce is a 77-year-old female patient, with an extensive past medical history of COPD. She wears O2 at night, history of moderate aortic stenosis, osteopenia, CAD with an IA in the past, hypothyroidism , hyperlipidemia, history of lung and breast cancer, depression, hypertension, peripheral arterial disease, carotid artery disease, and GERD, who presents to our ER today stating the last couple of days, she has had progressive worsening shortness of breath. She has had a cough that has been productive of a green type thick mucus with no associated fevers or chills and she has not had any abdominal pain or any nausea, vomiting or diarrhea. She denies any arthralgias or myalgias. She states that she has noted she has been wearing her O2 more during the day. She has noted that she has been having dyspnea particularly with exertion. She denies any orthopnea. No weight gain. She denies any recent surgery, recent trips or travel. No unilateral leg pain, swelling, or tenderness behind her calf was reported. She states that the cough has been getting worse. She states that it has gotten to the point when she coughs or takes a deep breath, her chest she feels like she is having pain that is sharp, stabbing type discomfort. She was concerned because she was not getting any better. She states she thought may be she had pneumonia again. She has had this previously. So, she decided to come into the ER today to be evaluated. When she presented she initially required increased amount of O2 because her O2 saturations were noted to be low, but now she is back on 2 L at her baseline. Because of this and the chest x-ray concerning for pneumonia, we were asked to evaluate for admission. PAST MEDICAL HISTORY: Significant for: 1. COPD. 2. Aortic stenosis. 3. Osteopenia. 4. CAD. 5. IA. 6. Hypothyroidism. 7. Urge incontinence. 8. Hyperlipidemia. 9. Lung cancer. 10. Breast cancer. 11. Depression. 12. She has tendonitis of her shoulder. 13. Hypertension. 14. PAD. 15. Carotid artery disease. 16. GERD. PAST SURGICAL HISTORY: 1. She has had a hysterectomy. 2. Lumpectomy. 3. Lobectomy. 4. She has had a tumor resected from her stomach, which she says was benign. MEDICATIONS: Home meds include; 1. Spiriva two capsules inhale daily. 2. Zocor 40 mg daily. 3. Zoloft 25 mg daily. 4. Oxybutynin 10 mg daily. 5. Prilosec 40 mg daily. 6. Toprol-XL 50 mg daily. 7. Synthroid 50 mcg daily. 8. Advair one puff inhale b.i.d. 9. She was on Famvir for a shingles infection for 10 days, which she states she is done with. 10. Aspirin 81 mg daily. 11. Vitamin C 500 mg daily. 12. Ventolin two puffs inhale every six hours as needed. ALLERGIES TO MEDICATIONS: No known drug allergies. FAMILY HISTORY: Her mother was diabetic and also had hypertension and stroke. Her father committed suicide in his 40s. SOCIAL HISTORY: She is a former smoker. She smokes for 55 plus years, 2 packs a day. She rarely drinks alcohol. Surrogate decision maker is her daughter, Mala. REVIEW OF SYSTEMS: There is no documented fever. She denied any significant weight change. There was no double vision. She denies having any ear discharge. There was no rhinorrhea. There was no sore throat. No thyroid enlargement. She denied having any chest pain with the exception when she coughs or takes deep breath. She denies having any abdominal pain. She denies having any nausea or vomiting. She does admit to dyspnea on exertion. No orthopnea. She does admit to a cough. She denied having any diarrhea. No seizure, no loss of consciousness. No pruritus and no skin ulceration. Review of 14 systems completed, all others negative. PHYSICAL EXAMINATION GENERAL: At this time, Mrs. Pearce is a 77-year-old female patient. She is chronically ill appearing. She is sitting in the ED stretcher. She does not appear to be in any acute respiratory distress. VITAL SIGNS: Blood pressure 115/50, pulse 92, respirations 18, O2 saturation was 96%, and temperature was 97.5. HEENT: Head: Atraumatic, normocephalic. Eyes: EOMs are intact. Sclerae anicteric and not pale. Throat: Oral mucosa appears to be dry, no oropharyngeal erythema. NECK: Supple. LUNGS: She had crackles noted in the right lobe, but there was no wheezes. She did have equal diaphragmatic expansion. HEART: Sounds S1, S2. She had a regular rate and rhythm. No murmurs, rubs or gallops. ABDOMEN: Soft. It was flat and nontender. Bowel sounds were present. EXTREMITIES: Pulses were 2+ throughout. She had no peripheral edema. She is moving all four extremities with 5/5 strength. NEUROLOGIC: She is awake, she is alert, she is oriented x3. Her tongue is midline. She had no facial drooping. She had no gross focal deficits. SKIN: Intact. DIAGNOSTIC STUDIES/LAB DATA: Labs today revealed a WBC of 11.7, RBC of 3.83, hemoglobin of 10.9, hematocrit of 33, platelet count of 386, INR 1.25. Blood gas revealed a pH of 7.49, pCO2 of 31. Her sodium was 136, potassium was 2.9, chloride of 100, bicarb 25, BUN 19, creatinine of 0.62, glucose of 110, lactic of 1.4, calcium 9.2, mag pending. Total bilirubin 0.6, AST 14, ALT 10, alk phos 67. Troponin 0.01. CRP was 201. Albumin was 3.3. Serology was negative for flu. She did have a chest x-ray obtained today. When I reviewed, it does appear that she has an infiltrate to the right lower lung. Radiology read it as atelectasis versus small pneumonia infiltrate in the periphery of the right lung base, stigmata of advanced COPD and emphysema with previous bilateral lobectomy. EKG obtained today shows a normal sinus rhythm of 84. She had diffuse ST depression lead II, III, aVF, along with V4, V5, and V6. When you look back to her previous EKG, the depression is similar. It is a little bit more pronounced today in lead III and aVF. Old medical records reviewed. ASSESSMENT AND PLAN: Mrs. Pearce is a 77-year-old female patient advanced chronic obstructive pulmonary disease, coming into the ED today with complaints of cough productive of green sputum, found to have pneumonia, should be admitted under inpatient status for: 1. Pneumonia with chronic obstructive pulmonary disease exacerbation. At this point, I will send off a legionella and Streptococcus pneumoniae antigens. Blood cultures were collected in the ED. Her lactic was stable. She does not meet for sepsis criteria as of yet. I will give her normal saline at 75 an hour for [address] her on Levaquin. I have placed her on DuoNeb every 4 hours. Respiratory driven protocol has been initiated. P.r.n. Albuterol has been ordered. I have ordered Dulera and I will start her on 60 of Prednisone. She may need a correct taper of this and will continue to follow. 2. Hyperglycemia induced by steroids. The patient did state in history that she does have a history of elevated blood sugar with steroids. So, I will be checking her blood sugar a.c. No coverage, she has no history of diabetes, but I want to follow this. 3. Chronic obstructive pulmonary disease exacerbation, again steroids, antibiotics and nebs have been ordered. 4. Aortic stenosis. Follow with her PCP and her oracle financial application developer. 5. Osteopenia, not an active issue currently. She can follow with her PCP. 6. Coronary artery disease. She is on aspirin, beta-tameka and statin therapy. We will continue. 7. Hypothyroidism. Continue with Synthroid. 8. Hyperlipidemia. Continue with statin therapy. 9. History of lung cancer and breast cancer. Continue with surveillance. 10. Depression. Continue with Zoloft and supportive care. 11. History of tenonitis. Again, she is p.r.n. Tylenol. We will monitor. 12. Hypertension. We will continue meds prescribed. 13. Peripheral arterial disease. Continue aspirin and statin therapy. 14. Carotid artery disease. Continue aspirin and statin therapy. 15. History of gastroesophageal reflux disease. No active complaints now. Continue with lifestyle modifications. She is on omeprazole as well. We will continue with that. 16. DVT prophylaxis. She is high risk. I have placed her on heparin subcu. 17. Code status. She has old MOLST in the computer and I did confirm it with the patient that she is a do no resuscitate and she will have a noninvasive ventilation trial period. 18. Fluids, electrolytes, and nutrition. She can have a regular diet. TIME SPENT: Time spent on admission is 60 minutes, greater than half the time was spent [id number] with the patient obtaining my history and physical, the other half of the time spent going over the plan of care with the patient and implementing the plan of care. I did discuss the plan of care with my attending, Dr. Jasso, she is in agreement. APOLINAR HEMPHILL, GERARDO [id number]/[facility] #: [id number] MYLES
[2018-03-27] MEDS: predniSONE TAB* 20 MG PO SCH (15:18)
[2018-03-27] MEDS: Heparin VIAL(*) 5000 UNITS/ML VIAL (FIVE THOUSAND) SUBCUT SCH ×2 (15:18→21:04)
[2018-03-27] MEDS: Albuterol/Ipratropium NEB.SOL* Albuterol 2.5 MG/Ipratropium 0.5 MG 3 ML INH SCH ×2 (15:27→19:28)
[2018-03-27] MEDS: Mometasone/Formoter 200/5 MDI INH SCH (19:28)
[2018-03-27] MEDS: Atorvastatin* 20 MG TAB PO SCH (21:03)
[2018-03-28] MEDS: Heparin VIAL(*) 5000 UNITS/ML VIAL (FIVE THOUSAND) SUBCUT SCH ×3 (05:58→21:54)
[2018-03-28] MEDS: Levothyroxine TAB* 50 MCG TAB PO SCH (05:58)
[2018-03-28 06:48] LABS: ABS Basophils 0 10^3/ul (0-0.2); ABS Eosinophils 0 10^3/ul (0-0.6); ABS Lymphocytes 0.8 10^3/ul (1.0-4.8); ABS Monocytes 0.5 10^3/ul (0-0.8); ABS Neutrophils 6.3 10^3/ul (1.5-7.7); ABS Nucleated RBC 0 10^3/ul; Eosinophil % 0 %; Hematocrit 29 % (35-47); Hemoglobin 9.6 g/dl (12.0-16.0); Lymphocyte % 10.2 %; Mean Corpuscular HGB Conc 34 g/dl (31-36); Mean Corpuscular Hemoglobin 28 pg (27-31); Mean Corpuscular Volume 84 fL (80-97); Mean Platelet Volume 7.2 fL (7.4-10.4); Nucleated Red Blood Cells % 0; Platelet Count 340 10^3/ul (150-450); Red Blood Count 3.39 10^6/ul (4.00-5.40); Red Cell Distribution Width 13 % (10.5-15); White Blood Count 7.6 10^3/ul (3.5-10.8)
[2018-03-28 07:08] LABS: BUN/Creatinine Ratio 33.3 (8-20); Calcium 9.2 mg/dL (8.6-10.3); EGFR African American 151.7 (>60); EGFR Non-African American 125.4 (>60); Potassium 4.7 mmol/L (3.5-5.0)
[2018-03-28] MEDS: Mometasone/Formoter 200/5 MDI INH SCH (07:45)
[2018-03-28] MEDS: predniSONE TAB* 20 MG PO SCH (08:25)
[2018-03-28] MEDS: Oxybutynin XL TAB* 5 MG PO SCH (08:25)
[2018-03-28] MEDS: Sertraline* 25 MG TAB PO SCH (08:25)
[2018-03-28] MEDS: Pantoprazole TAB * 40 MG TAB PO SCH (08:25)
[2018-03-28] MEDS: Aspirin EC TAB* 81 MG TAB.EC PO SCH (08:26)
[2018-03-28] MEDS: Metoprolol Succinate XL TAB* 50 MG PO SCH (08:26)
[2018-03-28] MEDS ORDERED: Levofloxacin 750 MG IVPREMIX(* 750 MG/150 ML BAG IVPB SCH (09:00)
[2018-03-28] MEDS ORDERED: Saline NASAL DROPS 0.65%* 1 DROP BTL BOTH NARES PRN (09:42)
--- NOTE | 2018-03-28 09:56 | PN ---
Subjective Date of Service: 03/28/18 Interval History: Patient admitted last night for COPD exacerbation and PNA. States she feels better. Working to breath currently because oxygen is drying her nose and she took it off. States she was able to eat for the first time in a while. SOB improved but still present. No CP. No N/V/D. +Constipated. Ambulating to the bathroom. Normally wears oxygen QHS and prn Objective Active Medications: Acetaminophen (Tylenol Tab*) 650 mg PO Q4H PRN PRN Reason: FEVER/PAIN Albuterol (Ventolin 2.5 Mg/3 Ml Neb.Melita*) 2.5 mg INH Q2H PRN PRN Reason: SOB/WHEEZING Aspirin (Aspirin Ec Tab*) 81 mg PO DAILY [facility] Last Admin: 03/28/18 08:26 Dose: 81 mg Atorvastatin Calcium (Lipitor*) 20 mg PO BEDTIME [facility] Last Admin: 03/27/18 21:03 Dose: 20 mg Heparin Sodium (Porcine) (Heparin Vial(*)) 5,000 units SUBCUT Q8HR [facility] Last Admin: 03/28/18 05:58 Dose: 5,000 units Levofloxacin/Dextrose (Levaquin 750 Mg Ivpremix(*)) 750 mg in 150 mls @ 100 mls /hr IVPB Q24H [facility] Last Admin: 03/28/18 08:27 Dose: 100 mls/hr Sodium Chloride (Ns 0.9% 1000 Ml*) 1,000 mls @ 75 mls/hr IV PER RATE [facility] Last Admin: 03/27/18 15:18 Dose: 75 mls/hr Levothyroxine Sodium (Synthroid Tab*) 50 mcg PO 0600 [facility] Last Admin: 03/28/18 05:58 Dose: 50 mcg Metoprolol Succinate (Toprol Xl Tab*) 50 mg PO DAILY [facility] Last Admin: 03/28/18 08:26 Dose: 50 mg Mometasone Furoate/Formoterol Fumar (Dulera 200/5 Mdi*) 2 puff INH BID [facility] Last Admin: 03/28/18 07:45 Dose: 2 puff Oxybutynin Chloride (Ditropan Xl Tab*) 10 mg PO DAILY [facility] Last Admin: 03/28/18 08:25 Dose: 10 mg Pantoprazole Sodium (Protonix Tab (Nf)) 40 mg PO DAILY [facility] Last Admin: 03/28/18 08:25 Dose: 40 mg Prednisone (Deltasone Tab*) 60 mg PO DAILY [facility] Last Admin: 03/28/18 08:25 Dose: 60 mg Sertraline HCl (Zoloft*) 25 mg PO DAILY [facility] Last Admin: 03/28/18 08:25 Dose: 25 mg Sodium Chloride (Sodium Chloride 0.65% Nasal Drops*) 1 drop BOTH NARES Q4H PRN PRN Reason: dryness Vital Signs - 8 hr 03/28/18 03/28/18 03/28/18 03:45 06:48 07:57 Temperature 97.8 F 97.8 F Pulse Rate 74 70 78 Respiratory 20 20 14 Rate Blood Pressure 141/50 134/53 (mmHg) O2 Sat by Pulse 98 100 98 Oximetry 03/28/18 08:00 Temperature Pulse Rate 78 Respiratory 14 Rate Blood Pressure (mmHg) O2 Sat by Pulse 98 Oximetry Oxygen Devices in Use Now: Nasal Cannula Appearance: conversational tachypnea Eyes: PERRLA Ears/Nose/Mouth/Throat: Mucous Membranes Moist Respiratory: - - Diminished breath sounds, poor aeration. No W/R/R Cardiovascular: RRR, - - harsh systolic murmur Abdominal: NL Sounds; No Tenderness; No Distention, No Hepatosplenomegaly Extremities: No Edema Neurological: Alert and Oriented x 3, NL Muscle Strength and Tone Result Diagrams: 03/28/18 06:35 03/28/18 06:35 Microbiology and Other Data: Microbiology 03/27/18 17:05 Legionella Urinary Antigen - Final Urine Negative Legionella Antigen Streptococcus pneumoniae Ag Screen - Final Negative S. pneumo Antigen 03/27/18 10:10 Influenza Types A,B Antigen - Final Nasal Specimen received for Influenza A/B Molecular testing Assess/Plan/Problems-Billing Assessment: This is a 77 yr old with PMHx of COPD on Oxygen prn and QHS who presents with SOB - found to have COPD exacerbation and PNA - Patient Problems (1) COPD exacerbation Current Visit: Yes Status: Acute Code(s): J44.1 - CHRONIC OBSTRUCTIVE PULMONARY DISEASE W (ACUTE) EXACERBATION SNOMED Code(s): 447443515 Comment: A Clincially improving but clearly increase work of breathing while on room air Plan Change to humidified oxygen Will continue prednisone and inhaler regimen Will need VNS services at discharge Will also repeat echo (last one was 11/21 showing mod-severe ) - may be playing a role in her tachypnea (2) Pneumonia Current Visit: No Status: Acute Code(s): J18.9 - PNEUMONIA, UNSPECIFIED ORGANISM SNOMED Code(s): 092511477 Comment: A. CXR shows question of infiltrate White count normalized. No fever, VSS Plan 2 doses of IV Levaquin - switch to Augmentin BID tonight (3) CAD (coronary artery disease) Current Visit: No Status: Chronic Code(s): I25.10 - ATHSCL HEART DISEASE OF [place] CORONARY ARTERY W/O ANG PCTRS SNOMED Code(s): 48774824 Comment: Continue ASA, statin, metoprolol. (4) GERD (gastroesophageal reflux disease) Current Visit: No Status: Chronic Code(s): K21.9 - GASTRO-ESOPHAGEAL REFLUX DISEASE WITHOUT ESOPHAGITIS SNOMED Code(s): 682085124 Comment: Continue pantoprazole (5) HLD (hyperlipidemia) Current Visit: No Status: Chronic Code(s): E78.5 - HYPERLIPIDEMIA, UNSPECIFIED SNOMED Code(s): 23516225 Comment: Continue statin. (6) HTN (hypertension) Current Visit: No Status: Chronic Code(s): I10 - ESSENTIAL (PRIMARY) HYPERTENSION SNOMED Code(s): 19859050 Comment: Controlled. Continue metoprolol. (7) Hypothyroidism Current Visit: No Status: Chronic Code(s): E03.9 - HYPOTHYROIDISM, UNSPECIFIED SNOMED Code(s): 46228376 Comment: Continue synthroid (8) Urge incontinence Current Visit: No Status: Chronic Code(s): N39.41 - URGE INCONTINENCE SNOMED Code(s): 32222313 Comment: Cont oxybutinin. (9) DVT prophylaxis Current Visit: Yes Status: Acute Code(s): NIX3964 - SNOMED Code(s): 064027924 Comment: High risk - SQ heparin TID (10) DNR (do not resuscitate) Current Visit: Yes Status: Acute Status and Disposition: Dispo planning: Anticipate discharge in 1-2 days Will need at minimum VNS Lives at home alone and takes care of 4 yr old great grandson
[2018-03-28] MEDS: Amoxicillin/Clavulanate TAB* 875 MG PO SCH (21:54)
[2018-03-28] MEDS: Atorvastatin* 20 MG TAB PO SCH (21:54)
[2018-03-29] MEDS: Mometasone/Formoter 200/5 MDI INH SCH ×3 (06:30→20:03)
[2018-03-29] MEDS: Levothyroxine TAB* 50 MCG TAB PO SCH (06:38)
[2018-03-29] MEDS: Heparin VIAL(*) 5000 UNITS/ML VIAL (FIVE THOUSAND) SUBCUT SCH ×3 (06:38→21:49)
[2018-03-29] MEDS: Amoxicillin/Clavulanate TAB* 875 MG PO SCH ×2 (07:44→21:49)
[2018-03-29] MEDS: Metoprolol Succinate XL TAB* 50 MG PO SCH (07:45)
[2018-03-29] MEDS: predniSONE TAB* 20 MG PO SCH (07:45)
[2018-03-29] MEDS: Sertraline* 25 MG TAB PO SCH (07:45)
[2018-03-29] MEDS: Pantoprazole TAB * 40 MG TAB PO SCH (07:45)
[2018-03-29] MEDS: Oxybutynin XL TAB* 5 MG PO SCH (07:45)
[2018-03-29] MEDS: Aspirin EC TAB* 81 MG TAB.EC PO SCH (07:45)
--- NOTE | 2018-03-29 09:17 | ECHO ---
Patient: BERNIE KENDRICK [facility] Rec#: [id number] : 1940 Date: 03/28/2018 Age: 77y Height: 147 cm / 57.9 in Weight: 42.5 kg / 93.7 lbs Sex: F BSA: 1.3 Room#: [facility] Admit Date#: 03/27/2018 Type: Inpatient Referring: Amrtia Dewey Reading: Mala Marx MD Butcher Assistant: Berna Apple RN RDCS CC: Rosanne Martinez MD Transthoracic Echocardiogram Indication: Shortness of breath BP: 118/40 HR: 76 Rhythm: NSR with PACs Findings History: CAD, aortic stenosis, HTN, HLD, COPD, lung cancer, breast cancer, thyroid disease, PAD, former smoker Technical Comments: The study quality is fair. The study is technically limited due to the patient's history of COPD. The study is technically limited due to the patient's smoking history. Left Ventricle: The left ventricular chamber size is normal. Mild concentric left ventricular hypertrophy is observed. Global left ventricular wall motion and contractility are within normal limits. There is normal left ventricular systolic function. The estimated ejection fraction is 60-65%. Abnormal left ventricular diastolic function is observed. Left Atrium: The left atrial chamber size is normal. Right Ventricle: The right ventricle wall thickness is mildly increased. The right ventricular cavity size is normal. The right ventricular global systolic function is normal. Right Atrium: The right atrial cavity size is normal. Aortic Valve: The aortic valve is trileaflet. The aortic valve leaflets are mildly thickened. Mild aortic leaflet calcification is visualized. Systolic excursion of the aortic valve cusps is reduced. There is mild to moderate aortic regurgitation. Not able to evaluate reversal of flow in the descending aorta, mild on short axis, moderate by P 1/2. There is moderate aortic stenosis. The mean gradient of the aortic valve is 26 mmHg. The aortic valve area, by peak velocities, is calculated at 0.9 cm2. The aortic valve area, by VTI's, is calculated at 0.8 cm2. The dimensionless index is 0.39-0.45. The measured aortic regurgitation pressure half-time is 359 msec. Mitral Valve: There is mitral annular calcification. The mitral valve leaflets are mildly thickened. Mitral valve leaflet mobility is mildly restricted. There is moderate mitral regurgitation. The mitral regurgitant jet is posteriorly directed. There is no evidence of mitral stenosis. Tricuspid Valve: The tricuspid valve leaflets are normal. There is mild tricuspid regurgitation. There is evidence of mild to moderate pulmonary hypertension. 41 mmHg. There is no tricuspid stenosis. Pulmonic Valve: The pulmonic valve structure is not well visualized. There is a trace pulmonic regurgitation. There is no pulmonic stenosis. Pericardium: There is no significant pericardial effusion. Aorta: There is no dilatation of the ascending aorta. The aortic arch is not well visualized. There is no dilation of the aortic root. Pulmonary Artery: The main pulmonary artery is not well visualized. Venous: The inferior vena cava appears normal in size. There is a greater than 50% respiratory change in the inferior vena cava dimension. Conclusions Mild concentric left ventricular hypertrophy is observed. Global left ventricular wall motion and contractility are within normal limits. The estimated ejection fraction is 60-65%. Abnormal left ventricular diastolic function is observed. The right ventricle wall thickness is mildly increased with normal systolic function. The aortic valve is trileaflet with calcific sclerosis. There is mild to moderate aortic regurgitation. There is moderate aortic stenosis: -The mean gradient of the aortic valve is 26 mmHg. -The aortic valve area, by VTI's, is calculated at 0.8 cm2. -The dimensionless index is 0.39-0.45. The mitral valve leaflets are mildly thickened and mobility is mildly restricted. There is moderate mitral regurgitation, the jet is posteriorly directed. There is mild tricuspid regurgitation. There is evidence of mild to moderate pulmonary hypertension. 41 mmHg. Compared with prior echo of 11/07/16, ventricular function is stable, AI was mild, esd moderate, MG previously 22 mmHg, ALMAS previously 1.4 cm2, MR has increased from mild, TR is stable, PA pressure has increased from 24 mmHg. Measurements Name Value Normal Range RVDdMajor (2D) 3 cm (2.2 - 4.4) RVAW (2D) 0.8 cm (0.2 - 0.5) RAd ISD 4CH 4.2 cm (3.4 - 4.9) RA (A4C)W 3.4 cm (2.9 - 4.6) IVSd (2D) 1.2 cm (0.6 - 1) LVPWd (2D) 1.2 cm (0.6 - 1) LVIDd (2D) 3.6 cm (3.6 - 5.4) LVIDs (2D) 2.4 cm - LV FS (2D) 33 % (25 - 45) Aortic Annulus 1.6 cm (1.4 - 2.6) Ao root diameter (2D) 2.4 cm (2.1 - 3.5) Ascending Ao 2.7 cm (2.1 - 3.4) LA dimension (AP) 2D 3 cm (2.3 - 3.8) LAd ISD 4CH 4.4 cm (2.9 - 5.3) LA ISD 4CH W 3.9 cm (2.5 - 4.5) Name Value Normal Range LA ESV BP (A/L) index 26.7 ml/m2 - Name Value Normal Range MV E-wave Vmax 1.3 m/sec - MV deceleration time 201 msec - MV A-wave Vmax 1.4 m/sec - MV E:A ratio 1 ratio - LV septal e' Vmax 0.08 m/sec - LV lateral e' Vmax 0.06 m/sec - LV E:e' septal ratio 16.3 ratio - LV E:e' lateral ratio 21.7 ratio - Name Value Normal Range AV Vmax 3.1 m/sec - AV VTI 87.9 cm - AV peak gradient 39 mmHg - AV mean gradient 26 mmHg - LVOT diameter 1.6 cm - LVOT Vmax 1.4 m/sec - LVOT VTI 34.3 cm - LVOT peak gradient 8 mmHg - LVOT mean gradient 4 mmHg - DOI (VTI) 0.39 ratio - DOI (Vmax) 0.45 ratio - ALMAS (continuity Vmax) 0.9 cm2 - ALMAS (continuity VTI) 0.8 cm2 - AR PHT 359 msec - Name Value Normal Range MR Vmax 6.25 m/sec - MR VTI 227 cm - MR volume (PISA) 25 ml - MR ERO 0.11 cm2 - MR PISA radius 0.6 cm - MR alias Vmax 30.8 cm/sec - Name Value Normal Range TR Vmax 3.1 m/sec - TR peak gradient 38 mmHg - RAP 3 mmHg - RVSP 41 mmHg - IVC diameter 1.4 cm - Name Value Normal Range PV Vmax 0.96 m/sec -
--- NOTE | 2018-03-29 11:53 | PN ---
Subjective Interval History: pretty winded taking a shower. woke up with sweaty back. no chest pain, abdominal pain, fever. not wheezing. cough improved. does not feel safe to go home yet. s/p ECHO today. previously was on spiriva but then switched to Dulera follows with [facility]. Objective Active Medications: Acetaminophen (Tylenol Tab*) 650 mg PO Q4H PRN PRN Reason: FEVER/PAIN Albuterol (Ventolin 2.5 Mg/3 Ml Neb.Melita*) 2.5 mg INH Q2H PRN PRN Reason: SOB/WHEEZING Amoxicillin/Clavulanate Potassium (Augmentin Tab*) 875 mg PO BID [facility] Last Admin: 03/29/18 07:44 Dose: 875 mg Aspirin (Aspirin Ec Tab*) 81 mg PO DAILY [facility] Last Admin: 03/29/18 07:45 Dose: 81 mg Atorvastatin Calcium (Lipitor*) 20 mg PO BEDTIME [facility] Last Admin: 03/28/18 21:54 Dose: 20 mg Heparin Sodium (Porcine) (Heparin Vial(*)) 5,000 units SUBCUT Q8HR [facility] Last Admin: 03/29/18 06:38 Dose: 5,000 units Levothyroxine Sodium (Synthroid Tab*) 50 mcg PO 0600 [facility] Last Admin: 03/29/18 06:38 Dose: 50 mcg Metoprolol Succinate (Toprol Xl Tab*) 50 mg PO DAILY [facility] Last Admin: 03/29/18 07:45 Dose: 50 mg Mometasone Furoate/Formoterol Fumar (Dulera 200/5 Mdi*) 2 puff INH BID [facility] Last Admin: 03/29/18 07:39 Dose: 2 puff Oxybutynin Chloride (Ditropan Xl Tab*) 10 mg PO DAILY [facility] Last Admin: 03/29/18 07:45 Dose: 10 mg Pantoprazole Sodium (Protonix Tab (Nf)) 40 mg PO DAILY [facility] Last Admin: 03/29/18 07:45 Dose: 40 mg Prednisone (Deltasone Tab*) 40 mg PO DAILY [facility] Last Admin: 03/29/18 07:45 Dose: 40 mg Sertraline HCl (Zoloft*) 25 mg PO DAILY [facility] Last Admin: 03/29/18 07:45 Dose: 25 mg Sodium Chloride (Sodium Chloride 0.65% Nasal Drops*) 1 drop BOTH NARES Q4H PRN PRN Reason: dryness Vital Signs - 8 hr 03/29/18 03/29/18 03/29/18 07:25 07:37 07:40 Temperature 98.2 F Pulse Rate 62 65 Respiratory 20 14 Rate Blood Pressure 126/69 (mmHg) O2 Sat by Pulse 100 98 98 Oximetry 03/29/18 08:05 Temperature Pulse Rate Respiratory 16 Rate Blood Pressure (mmHg) O2 Sat by Pulse Oximetry Oxygen Devices in Use Now: Nasal Cannula Appearance: NAD Eyes: No Scleral Icterus, PERRLA Ears/Nose/Mouth/Throat: NL Teeth, Lips, Gums, Mucous Membranes Moist Neck: NL Appearance and Movements; NL JVP, Trachea Midline Respiratory: - - moderate air exchange. no wheezing or rhonchi. Cardiovascular: - - ARACELIS 3/6, RRR Abdominal: NL Sounds; No Tenderness; No Distention, No Hepatosplenomegaly Extremities: No Edema Skin: No Rash or Ulcers Neurological: Alert and Oriented x 3 Nutrition: Taking PO's Result Diagrams: 03/28/18 06:35 03/28/18 06:35 Additional Lab and Data: Laboratory Results - last 24 hr 03/28/18 03/29/18 03/29/18 17:28 08:18 11:25 POC Glucose (mg/dL) 211 H 104 H 157 H Microbiology and Other Data: Microbiology 03/27/18 17:05 Legionella Urinary Antigen - Final Urine Negative Legionella Antigen Streptococcus pneumoniae Ag Screen - Final Negative S. pneumo Antigen 03/27/18 10:10 Influenza Types A,B Antigen - Final Nasal Specimen received for Influenza A/B Molecular testing Assess/Plan/Problems-Billing Assessment: 77 yr old with PMHx of COPD (on 2L Oxygen qhs and increasingly prn) who presents with SOB - suspected COPD exacerbation, can't exclude pnuemonia at peripheral right lung base. - Patient Problems (1) COPD exacerbation Current Visit: Yes Status: Acute Code(s): J44.1 - CHRONIC OBSTRUCTIVE PULMONARY DISEASE W (ACUTE) EXACERBATION SNOMED Code(s): 755214912 Comment: Clincially improved but clearly increase work of breathing while on room air after her shower. She desat'ed to 86 with ambulation on RA when checked today. Continue prednisone 40mg daily po and inhaler regimen of dulera + duonebs, will add spiriva PT ordered. 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 Echo with still moderate though ALMAS has fallen to 0.7-0.8. pEF, diastolic dsyfunction. Euvolemic on exam, no clear JVD, no edema. BNP 137 on admission. (2) Pneumonia Current Visit: No Status: Acute Code(s): J18.9 - PNEUMONIA, UNSPECIFIED ORGANISM SNOMED Code(s): 370215962 Comment: CXR shows question of infiltrate White count normalized. No fever, VSS s/p 2 doses of IV Levaquin - continue Augmentin BID. Day 3 abx negative strep pna and legionella urine antigens CRP 201 Blood Cx negative (3) DVT prophylaxis Current Visit: No Status: Acute Code(s): EZO1559 - SNOMED Code(s): 967604059 Comment: SQ Heparin (4) CAD (coronary artery disease) Current Visit: No Status: Chronic Code(s): I25.10 - ATHSCL HEART DISEASE OF [place] CORONARY ARTERY W/O ANG PCTRS SNOMED Code(s): 21049312 Comment: Continue ASA, statin, metoprolol. (5) GERD (gastroesophageal reflux disease) Current Visit: No Status: Chronic Code(s): K21.9 - GASTRO-ESOPHAGEAL REFLUX DISEASE WITHOUT ESOPHAGITIS SNOMED Code(s): 664848974 Comment: Continue pantoprazole (6) HLD (hyperlipidemia) Current Visit: No Status: Chronic Code(s): E78.5 - HYPERLIPIDEMIA, UNSPECIFIED SNOMED Code(s): 09065923 Comment: Continue statin. (7) HTN (hypertension) Current Visit: No Status: Chronic Code(s): I10 - ESSENTIAL (PRIMARY) HYPERTENSION SNOMED Code(s): 20733591 Comment: Controlled. Continue metoprolol. (8) Hypothyroidism Current Visit: No Status: Chronic Code(s): E03.9 - HYPOTHYROIDISM, UNSPECIFIED SNOMED Code(s): 22212779 Comment: Continue synthroid (9) Urge incontinence Current Visit: No Status: Chronic Code(s): N39.41 - URGE INCONTINENCE SNOMED Code(s): 44587491 Comment: Cont oxybutinin. (10) DNR (do not resuscitate) Current Visit: No Status: Acute Comment: Status and Disposition: medicine inpatient. Anticipate discharge 03/30. PT orderd. Will need at minimum VNS Lives at home alone and takes care of 4 yr old great grandson
[2018-03-29] MEDS ORDERED: Spiriva Inhaler DEVICE* 1 EACH DEVICE INH SCH (12:00)
[2018-03-29] MEDS: Tiotropium CAP.INH* CAP.INH/18 MCG (USE ORDER SET !) INH SCH (15:23)
[2018-03-29] MEDS ORDERED: Dextrose 50% Syringe 50 ML* 25 GM/50 ML SYRINGE IV PUSH PRN (17:32)
[2018-03-29] MEDS: Atorvastatin* 20 MG TAB PO SCH (21:49)
[2018-03-29] MEDS: Insulin LISPRO* 1 UNITS UNIT SUBCUT SCH (21:50)
[2018-03-30] MEDS: Heparin VIAL(*) 5000 UNITS/ML VIAL (FIVE THOUSAND) SUBCUT SCH (07:12)
[2018-03-30] MEDS: Amoxicillin/Clavulanate TAB* 875 MG PO SCH (07:13)
[2018-03-30] MEDS: Aspirin EC TAB* 81 MG TAB.EC PO SCH (07:13)
[2018-03-30] MEDS: Levothyroxine TAB* 50 MCG TAB PO SCH (07:13)
[2018-03-30] MEDS: Pantoprazole TAB * 40 MG TAB PO SCH (07:13)
[2018-03-30] MEDS: predniSONE TAB* 20 MG PO SCH (07:13)
[2018-03-30] MEDS: Oxybutynin XL TAB* 5 MG PO SCH (07:13)
[2018-03-30] MEDS: Sertraline* 25 MG TAB PO SCH (07:13)
[2018-03-30] MEDS: Metoprolol Succinate XL TAB* 50 MG PO SCH (07:13)
[2018-03-30] MEDS: Tiotropium CAP.INH* CAP.INH/18 MCG (USE ORDER SET !) INH SCH (08:33)
[2018-03-30] MEDS: Mometasone/Formoter 200/5 MDI INH SCH (08:33)
[2018-03-30] MEDS: Insulin LISPRO* 1 UNITS UNIT SUBCUT SCH ×2 (09:15→11:26)
[2018-03-30 11:25] VITALS: BP 112/64
--- NOTE | 2018-03-30 12:50 | DS ---
DISCHARGE SUMMARY: DATE OF ADMISSION: 03/27/18 DATE OF DISCHARGE: 03/30/18 ADMITTING PROVIDER: Apolinar Vera NP. PRIMARY CARE PHYSICIAN: Dr. Martinez. ATTENDING PHYSICIAN ON DAY OF DISCHARGE: Isaías Sierra MD. OUTPATIENT ASSISTED LIVING ASSOCIATE: Tia English. CHIEF COMPLAINT: Shortness of breath, productive cough. PRINCIPAL DIAGNOSES: 1. Chronic obstructive pulmonary disease exacerbation; acute on chronic. 2. Acute on Chronic Hypoxic respiratory failure. HISTORY OF PRESENT ILLNESS AND HOSPITAL COURSE: Ms. Pearce is a 77-year-old female with a past medical history of COPD with 2 L of nocturnal O2 use and increasingly more frequent p.r.n. use during the day, moderate aortic stenosis, osteopenia, CAD/CT, hypothyroidism, hyperlipidemia, lung and breast cancer, depression, hypertension, peripheral arterial disease, carotid artery disease, GERD. Please see H& P of Apolinar Vera for full details, but briefly, she had a progressive worsening of shortness of breath, productive cough of green thick mucus without fevers or chills. She was noticed to be requiring more and more supplemental oxygen use during the daytime and increasingly dyspneic on exertion. Denied any orthopnea. She was referred to the hospitalist service for suspicion for COPD exacerbation. Initial workup included a chest x-ray which showed atelectasis versus mild pneumonia infiltrate at the peripheral right lung base and stigmata of advanced chronic obstructive pulmonary disease and emphysema and previous bilateral lobectomy. She had a leukocytosis of 11.7 , CRP of 201, BNP of 137. Her initial ABG showed a pH of 7.49, pCO2 of 31, pO2 of 202, bicarb of 25.7. She had negative strep and legionella urine antigens. Blood cultures have been negative x3 days. She was negative for influenza, unable to provide a sputum sample. She was afebrile throughout the admission. T-max was 99.0 on day of admission. Got Solu- Medrol 125 mg in the emergency room. She slowly improved on oral prednisone 40 mg daily, inhalers, and had initially been started on Levaquin 750 mg which she got on the day of admission and hospital day #1, before being transitioned to Augmentin b.i.d. Spiriva was added, which she had previously been on, but says she has been off for a while after the Advair was added by Dr. Jameson. She initially was desaturating on room air to 85% on hospital day #3, but after initiation of Spiriva, this improved and was satting in the mid 90s with ambulation. On day of discharge, feeling well and ready to go home. She is being sent with a few more days of a steroid taper and 4 more days of Augmentin and as mentioned, initiation of anticholinergic therapy which her insurance company is actually preferring Incruse Ellipta which will be started for her. She should follow up with her PCP and collective bargaining specialist, Dr. Jameson. Her mild leukocytosis resolved by hospital day #1. She did have some postprandial hyperglycemia in the mid 200s and her A1c was checked and it was 6.4, the only one we have in our system. She did have a repeat echocardiogram, given her valvular disease, on 03/28/18, demonstrated ejection fraction of 60% to 65%, abnormal diastolic dysfunction, moderate aortic stenosis with aortic valve area by VTI of 0.8 cm^2 and dimensionless index of 0.39 to 0.45. Moderate mitral regurgitation, mild-to- moderate pulmonary hypertension with RVSP of 41 mmHg. Compared to 11/07/16 study, AI had been mild, had been moderate, aortic valve area previously 1.4 cm2 and MR has increased from mild to moderate, PA pressures increased from 24 mmHg. She seemed euvolemic on physical exam. DISCHARGE MEDICATIONS: Include: 1. Ventolin 2 puffs inhaled q.6 hours p.r.n. 2. Augmentin 875 mg p.o. b.i.d. for 4 more days (new). 3. Ascorbic acid 500 mg p.o. daily. 4. Famciclovir 500 mg p.o. t.i.d. 5. Advair 1 puff inhaled b.i.d. 6. Prednisone 40 mg for 4 days, then 20 mg for 4 days, then stop (new). 7. Incruse Ellipta (umeclidinium bromide) 62.5 mcg inhaled daily (new). 8. Simvastatin 40 mg p.o. daily. 9. Sertraline 25 mg p.o. daily. 10. Oxybutynin 10 mg p.o. daily. 11. Omeprazole 40 mg p.o. daily. 12. Metoprolol succinate 50 mg p.o. daily. 13. Levothyroxine 50 mcg p.o. q.a.m. 14. Aspirin 81 mg daily. DISCHARGE DIET: Heart healthy, unchanged. FOLLOWUP: Please follow up with PCP, Dr. Rosanne Martinez within 7 days of discharge and as needed with collective bargaining specialist, Dr. Audie Jameson. TIME SPENT: Time spent on discharge 35 minutes. [id number]/CPS #: [id number] MTDD
== END 2018-03-30 11:45 | disposition home or self-care (01) | DRG 193 ==
LOC: ED 09:30 → MED 11:21
PROVIDERS: ADMIT Internal Medicine; ATTEND Internal Medicine
DX: J18.9 Pneumonia, unspecified organism (principal); J96.91 Respiratory failure, unspecified with hypoxia; J44.1 Chronic obstructive pulmonary disease with (acute) exacerbation; E87.3 Alkalosis; J44.0 Chronic obstructive pulmonary disease with (acute) lower respiratory infection; Z72.89 Other problems related to lifestyle; M19.041 Primary osteoarthritis, right hand; K59.00 Constipation, unspecified; I25.10 Atherosclerotic heart disease of native coronary artery without angina pectoris; K21.9 Gastro-esophageal reflux disease without esophagitis; E78.5 Hyperlipidemia, unspecified; I10 Essential (primary) hypertension; E03.9 Hypothyroidism, unspecified; N39.41 Urge incontinence; Z66 Do not resuscitate; Z85.118 Personal history of other malignant neoplasm of bronchus and lung; M19.042 Primary osteoarthritis, left hand; M19.072 Primary osteoarthritis, left ankle and foot; M19.071 Primary osteoarthritis, right ankle and foot; Z85.3 Personal history of malignant neoplasm of breast; Z90.710 Acquired absence of both cervix and uterus; Z82.49 Family history of ischemic heart disease and other diseases of the circulatory system; Z83.3 Family history of diabetes mellitus; Z87.891 Personal history of nicotine dependence; E87.6 Hypokalemia; M85.80 Other specified disorders of bone density and structure, unspecified site; I25.2 Old myocardial infarction; F32.9 Major depressive disorder, single episode, unspecified; Z82.3 Family history of stroke; R73.9 Hyperglycemia, unspecified; T38.0X5A Adverse effect of glucocorticoids and synthetic analogues, initial encounter; Y92.9 Unspecified place or not applicable; I34.0 Nonrheumatic mitral (valve) insufficiency; I27.20 Pulmonary hypertension, unspecified; Z79.82 Long term (current) use of aspirin
CPT/HCPCS: 36415; 71045; 80048; 80053; 82803; 83036; 83605; 83735; 83880; 84484; 85025; 85610; 86140; 87040; 87899; 93005; 93306; 94640; 99284; A9270-GY; G8978-GP-CK; G8979-GP-CI; G8980-GP-CI; J1644; J2930; J3480; J7512

== ENCOUNTER 2019-01-09 11:11 | Observation (INO) | payer MEDICARE ==
[2019-01-09] MEDS ORDERED: Albuterol/Ipratropium NEB.SOL* Albuterol 2.5 MG/Ipratropium 0.5 MG 3 ML INH ONE (11:47)
[2019-01-09] MEDS ORDERED: methylPREDNISolone 125 MG* 2 ML VIAL IV ONE (11:48)
--- NOTE | 2019-01-09 11:50 | ED ---
Shortness of Breath - HPI Summary HPI Summary: Pt is a 78 y/o F presenting to the ED with a chief complaint of shortness of breath initially onset about 3 days ago. She notes hx of COPD, she normally uses oxygen at night, but has been using it more recently. She is out of her rescue inhaler, but otherwise compliant with all of her medications. She currently reports chills, productive cough, very slight chest pain, and back pain in her mid-back. She denies fever, vomiting, diarrhea, or LE edema. Medications reviewed. Allergies noted. - History of Current Complaint Chief Complaint: EDShortnessOfBreath Time Seen by Provider: 01/09/19 11:25 Hx Obtained From: Patient Onset/Duration: Gradual Onset, Lasting Days, Still Present Timing: Constant Current Severity: Moderate Dyspnea At: Rest Aggravating Factors: Nothing Alleviating Factors: Oxygen Associated Signs & Symptoms: Cough (Productive), Chills - Allergy/Home Medications Allergies/Adverse Reactions: Allergies Allergy/AdvReac Type Severity Reaction Status Date / Time No Known Allergies Allergy Verified 12/13/16 15:48 Home Medications: Home Medications Ferrous Sulfate TAB* 325 mg PO DAILY 01/09/19 [History Confirmed 01/09/19] Fluticasone/Umeclidin/Vilanter [Trelegy Ellipta 100-62.5-25] 1 puff INH DAILY [History Confirmed 01/09/19] Potassium Chlor TAB* [Klor Con ER TAB*] 10 meq PO DAILY 01/09/19 [History Confirmed 01/09/19] Rosuvastatin Calcium 40 mg PO DAILY 01/09/19 [History Confirmed 01/09/19] PMH/Surg Hx/FS Hx/Imm Hx Previously Healthy: Yes Endocrine/Hematology History: Reports: Hx Thyroid Disease Denies: Hx Diabetes Cardiovascular History: Reports: Hx Hypercholesterolemia, Hx Hypertension Respiratory History: Reports: Hx Chronic Obstructive Pulmonary Disease (COPD) - uses 2LNC at home, Hx Lung Cancer - Bilateral, Hx Pneumonia, Other Respiratory Problems/Disorders - HX LUNG AND BREAST CA Denies: Hx Asthma GI History: Reports: Hx Gastroesophageal Reflux Disease Denies: Hx Ulcer History: Comment Only: Other Problems/Disorders - urge incontinence Musculoskeletal History: Reports: Hx Arthritis - hands and legs, Other Musculoskeletal History - osteopenia Sensory History: Reports: Hx Contacts or Glasses Denies: Hx Hearing Aid Opthamlomology History: Reports: Hx Contacts or Glasses - Cancer History Cancer Type, Location and Year: left breast ca, lung ca 2005, 2006(bilateral lungs) - Surgical History Surgery Procedure, Year, and Place: BREAST SURGERY. HYSTERECTOMY. BILATERAL LOBECTOMY - Immunization History Date of Influenza Vaccine: 12/08/16 Infectious Disease History: No Infectious Disease History: Denies: Hx Clostridium Difficile, Hx Hepatitis, Hx Human Immunodeficiency Virus (HIV), Traveled Outside the [place] in Last 30 Days - Family History Known Family History: Positive: Cardiac Disease - [place], Hypertension, Diabetes, Other - Suicide - Social History Alcohol Use: Occasionally Hx Substance Use: No Substance Use Type: Reports: None Hx Tobacco Use: Yes - quit 2012 Smoking Status (MU): Former Smoker Type: Cigarettes Have You Smoked in the Last Year: No Review of Systems Positive: Chills. Negative: Fever Positive: Chest Pain Positive: Shortness Of Breath, Cough Negative: Vomiting, Diarrhea Positive: Myalgia - back pain All Other Systems Reviewed And Are Negative: Yes Physical Exam - Summary Physical Exam Summary: Constitutional: Well-developed, Well-nourished, Alert. (-) Distressed Skin: Warm, Dry HENT: Normocephalic; Atraumatic Eyes: Conjunctiva normal Neck: Musculoskeletal ROM normal neck. (-) JVD, (-) Stridor, (-) Tracheal deviation Cardio: Rhythm regular, rate normal, Heart sounds normal; Intact distal pulses; Radial pulses are 2+ and symmetric. (-) Murmur Pulmonary/Chest wall: Tachypnic, decreased aeration bilaterally, (-) Wheezes, (- ) Rales Abd: Soft, (-) tenderness, (-) Distension, (-) Guarding, (-) Rebound Musculoskeletal: (-) Edema Lymph: (-) Cervical adenopathy Neuro: Alert, Oriented x3 Psych: Mood and affect Normal Triage Information Reviewed: Yes Vital Signs On Initial Exam: Initial Vitals Temp Pulse Resp BP Pulse Ox 98.4 F 85 27 131/63 90 01/09/19 11:14 01/09/19 11:14 01/09/19 11:14 01/09/19 11:14 01/09/19 11:14 Vital Signs Reviewed: Yes Procedures - Sedation Patient Received Moderate/Deep Sedation with Procedure: No Diagnostics - Vital Signs Vital Signs Temp Pulse Resp BP Pulse Ox 01/09/19 11:14 98.4 F 85 27 131/63 90 - Laboratory Result Diagrams: 01/09/19 11:43 01/09/19 11:43 Lab Statement: Any lab studies that have been ordered have been reviewed, and results considered in the medical decision making process. - Radiology CXR Radiology Interpretation Completed By: Radiologist Summary of Radiographic Findings: Stigmata of obstructive lung disease. No acute pulmonary or cardiac process evident. ED physician has reviewed this report. - CT CTA Chest/Thorax CT Interpretation Completed By: Radiologist Summary of CT Findings: 1. NO PULMONARY ARTERIAL FILLING DEFECT TO SUGGEST PULMONARY EMBOLISM. 2. SUBSEGMENTAL CONSOLIDATION OF THE LUNG BASES BILATERALLY. RECOMMEND FOLLOW-UP TO RESOLUTION TO EXCLUDE UNDERLYING PULMONARY PARENCHYMAL PATHOLOGY. 3. SMALL RIGHT PLEURAL EFFUSION. 4. ATHEROSCLEROSIS. 5. STABLE NONSOLID NODULARITY OF THE LEFT UPPER LUNG. ED physician has reviewed this report. - EKG 1154 Cardiac Rate: NL - 77bpm EKG Rhythm: Sinus Rhythm ST Segment: Normal Ectopy: None Summary of EKG Findings: EKG at 1154 shows NSR at 77bpm with T-wave inversion in aVL. No STEMI. ED physician has reviewed and interpreted this EKG. Course/Dx - Course Course Of Treatment: Patient is here with a COPD exacerbation. Patient is complaining of back pain so a d-dimer sent for possible PE or dissection. Patient had a positive d-dimer so a CT was performed which showed multilobar pneumonia. Patient has a white count of 15. Patient is given steroids and albuterol prior to the CT scan. Patient was then given a dose of antibiotics here. She is admitted to the hospital. - Diagnoses Provider Diagnoses: Multifocal pneumonia, COPD (chronic obstructive pulmonary disease), Leukocytosis (leucocytosis), Back pain, SOB (shortness of breath), Hypoxemia Discharge ED - Sign-Out/Discharge Documenting (check all that apply): Patient Departure - Discharge Plan Condition: Stable Disposition: ADMITTED TO [facility] - Billing Disposition and Condition Condition: STABLE Disposition: Admitted to [facility] - Attestation Statements Document Initiated by Scribe: Yes Documenting Scribe: Amrita Corea Provider For Whom Scribe is Documenting (Include Credential): Erwin Pool MD. Scribe Attestation: Amrita Campos, scribed for Erwin Pool MD. on 01/09/19 at 1649. Scribe Documentation Reviewed: Yes Provider Attestation: The documentation as recorded by the scribe, Amrita Corea accurately reflects the service I personally performed and the decisions made by me, Erwin Pool MD. Status of Scribe Document: Viewed Consult Consult: [id number] - I spoke with Dr. Horn who accepts the [place] [facility] [place]
[2019-01-09 12:00] LABS: ABS Basophils 0.2 10^3/ul (0-0.2); ABS Lymphocytes 1.7 10^3/ul (1.0-4.8); ABS Neutrophils 12.2 10^3/ul (1.5-7.7); Eosinophil % 0.3 %; Hematocrit 34 % (35-47); Hemoglobin 11.2 g/dL (12.0-16.0); Lymphocyte % 11.3 %; Mean Corpuscular HGB Conc 33 g/dL (31-36); Mean Corpuscular Hemoglobin 28 pg (27-31); Mean Corpuscular Volume 84 fL (80-97); Mean Platelet Volume 6.9 fL (7.4-10.4); Platelet Count 459 10^3/uL (150-450); Red Cell Distribution Width 14 % (10-15); White Blood Count 15.1 10^3/uL (3.5-10.8)
[2019-01-09 12:13] LABS: Albumin 3.8 g/dL (3.2-5.2); BUN/Creatinine Ratio 14.5 (8-20); Calcium 9.3 mg/dL (8.6-10.3); EGFR African American 99.6 (>60); EGFR Non-African American 82.3 (>60); Globulin 3.9 g/dL (2-4); Potassium 3.6 mmol/L (3.5-5.0); Total Bilirubin 0.7 mg/dL (0.2-1.0); Total Protein 7.7 g/dL (6.4-8.9)
[2019-01-09 12:14] LABS: Troponin I 0.01 ng/mL (<0.04)
[2019-01-09] MEDS ORDERED: NS 0.9% 1000 ML** 1,000 ML IV ONE (12:34)
[2019-01-09] MEDS ORDERED: Iohexol 350* (CONTRAST) 500 ML MDV IV ONE (12:43)
--- OUTSIDE RECORDS SUMMARY | 2019-01-09 12:49 | XMS REPORT | Summary of Care ---
:1940 Author Organization [facility] Address [address] [facility] [place] [address] Care Team Providers Name Role Phone Rosanne Martinez MD Primary Care Provider Audie Jameson Unavailable Edgar Nick Unavailable Kendy Marino RN Unavailable Unavailable Reason for Visit Reason Comments Check Up re certification for home ox., annual check up. Encounter Details Date Type Department Care Team Description 12/04/2018 Office Visit [facility] Michelle, Chronic obstructive pulmonary disease, unspecified COPD type (HCC) (Primary Dx); Practice Rosanne Lomax MD Aortic stenosis, moderate; [address] Hypothyroidism, unspecified type; [place] [address] [place] [address] Anemia, unspecified type; [phone] Heart disease, unspecified Allergies No Known Allergiesdocumented as of this encounter (statuses as of 12/04/2018) Medications Medication Sig Dispensed Refills Start Date End Date Status aspirin (SB LOW DOSE Take 1 Tab by 0 Active ASA EC) 81 MG PO TBEC mouth DAILY. Ascorbic Acid (VITAMIN Take 500 mg by 0 Active C) 500 MG Oral Cap mouth DAILY. albuterol HFA Take 2 Puffs by 1 Inhaler 11 05/27/2017 Active (VENTOLIN) 108 (90 inhalation EVERY Base) MCG/ACT SIX HOURS Inhalation Aero NEEDED (sob). SolnIndications: Obstructive chronic bronchitis without exacerbation (HCC) oxybutynin (DITROPAN TAKE ONE TABLET BY 90 Tab 2 03/27/2018 Active XL) 10 MG Oral TABLET MOUTH EVERY DAY SR 24 HR ferrous sulfate 325 Take 1 Tab by 90 Tab 1 04/11/2018 Active (65 Fe) MG Oral mouth DAILY. TabIndications: Anemia, unspecified type levothyroxine TAKE ONE TABLET BY 90 Tab 2 04/21/2018 Active (SYNTHROID) 75 MCG MOUTH EVERY DAY Oral TabIndications: BEFORE BREAKFAST Hypothyroidism, unspecified type Rosuvastatin Calcium Take 1 Tab by 90 Tab 3 05/03/2018 Active (CRESTOR) 40 MG Oral mouth DAILY. TabIndications: Coronary artery disease involving elim ira coronary artery of elim ira heart without angina pectoris metoprolol succinate TAKE ONE TABLET BY 90 Tab 3 05/24/2018 Active (TOPROL XL) 50 MG Oral MOUTH EVERY DAY TABLET SR 24 HR Omeprazole delayed rel TAKE ONE TO TWO 180 Cap 1 06/21/2018 Active cap 20 MG Oral CAPSULE CAPSULES BY MOUTH DELAYED RELEASE EVERY DAY sertraline (ZOLOFT) 25 TAKE ONE TABLET BY 90 Tab 3 07/26/2018 Active MG Oral MOUTH EVERY DAY TabIndications: Depression, unspecified depression type potassium chloride TAKE ONE TABLET BY 90 Tab 1 09/26/2018 Active (K-TAB) 10 MEQ Oral MOUTH EVERY DAY Tab CRIndications: Hypokalemia TRELEGY ELLIPTA INHALE ONE PUFF BY 1 Each 5 11/27/2018 Active 100-62.5-25 MCG/INH MOUTH EVERY DAY Inhalation AEROSOL POWDER, BREATH ACTIVATED documented as of this encounter (statuses as of 12/04/2018) Active Problems Problem Noted Date Claudication 04/11/2018 Community acquired pneumonia of right lower lobe of lung 04/11/2018 Pulmonary cachexia due to chronic obstructive pulmonary disease 02/16/2017 Aortic stenosis, moderate 02/06/2017 Oxygen dependent 02/06/2017 Combined forms of age-related cataract of both eyes 12/10/2015 Hypothyroidism 10/27/2015 Hyperlipemia 10/27/2015 Coronary artery disease 10/27/2015 H/O: lung cancer 10/27/2015 History of malignant neoplasm of breast 10/27/2015 Chronic obstructive pulmonary disease 04/13/2012 Personal history of malignant neoplasm of bronchus and lung 10/03/2007 Heart disease, unspecified 07/13/2007 Calcifying tendinitis of shoulder 07/06/2007 Osteoarthrosis, unspecified whether generalized or localized, pelvic 2007 region and thigh Hyperlipidemia 04/20/2007 Hypothyroidism due to acquired atrophy of thyroid 04/20/2007 Depression 04/20/2007 Special screening for malignant neoplasms, colon 04/20/2007 Overview: Colonoscopy 02/08 Personal history of malignant neoplasm of breast 01/24/2007 Obstructive chronic bronchitis without exacerbation 12/29/2006 Overview: Oxygen 2 LPM q HS through [facility] [place] Centrilobular emphysema 01/17/2006 Carcinoma in situ of breast 12/22/2005 documented as of this encounter (statuses as of 12/04/2018) Resolved Problems Problem Noted Date Resolved Date Nonspecific abnormal results of other specified function 03/14/20082013 study Malignant neoplasm of breast (female), unspecified site 08/29/2007 03/27/2013 Nonspecific (abnormal) findings on radiological and other 07/13/20072013 examination of lung field Other diseases of lung, not elsewhere classified 07/13/2007 03/27/2013 Closed fracture of one rib 06/13/2007 03/27/[address] of occurrence 06/13/2007 03/27/2013 Other nonspecific (abnormal) findings on radiological and 05/30/20072013 other examinations of body structure Essential Hypertension 04/20/2007 11/22/2008 Malignant neoplasm of bronchus and lung, unspecified site 03/02/20072013 Acquired absence of breast and nipple 01/24/2007 03/27/2013 Neoplasm of unspecified nature of respiratory system 12/29/2006 03/27/2013 documented as of this encounter (statuses as of 12/04/2018) Immunizations Name Administration Dates Next Due Influenza (IM) Preservative Free 12/29/2012 Influenza (IM) W/Pres 01/01/2016 Influenza Vaccine 65 Yrs + 11/23/2018 Influenza Vaccine High Dose 11/23/2017, 12/08/2016, 12/19/2014, 01/02/2014 Influenza Virus Vaccine - Whole 01/09/2008, 12/19/2006 Influenza Virus Vaccine Pres Free 6-35 11/25/2011, 12/04/2010, 12/08/2009 Months Neulasta (6 mg) 06/05/2007, 05/15/2007, 04/24/2007 PNEUMOCOCCAL POLYSACCHARIDE VACCINE 07/12/2017 Pneumococcal Conjugate(13 Valent) 05/05/2016 documented as of this encounter Social History Tobacco Use Types Packs/Day Years Used Date Former Smoker Cigarettes 2 56 Quit: 03/09/2006 Smokeless Tobacco: Never Used Alcohol Use Drinks/Week oz/Week Comments Yes social Social Isolation Answer Date Recorded In a typical week, how many times do you More than three times a week 2018 talk on the phone with family, friends, or neighbors? How often do you get together with friends More than three times a week 03/20 or relatives? How often do you attend taoism or Never 03/20/2018 sabianist services? Do you belong to any clubs or No 03/20/2018 organizations such as taoism groups, unions, fraSeafile or athletic groups, or school groups? How often do you attend meetings of the Never 03/20/2018 clubs or organizations you belong to? Are you now , , , 03/20/2018 , never or living with a partner? Physical Activity Answer Date Recorded On average, how many days per week do you engage in moderate to 0 days 2018 strenuous exercise (like walking fast, running, jogging, dancing, swimming, biking, or other activities that cause a light or heavy sweat)? On average, how many minutes do you engage in exercise at this 0 min 2018 level? Stress Answer Date Recorded Do you feel stress - tense, restless, nervous, or Only a little 03/20/2018 anxious, or unable to sleep at night because your mind is troubled all the time - these days? Financial Resource Strain Answer Date Recorded How hard is it for you to pay for the very basics like Not hard at all 2018 food, housing, medical care, and heating? Intimate Partner Violence Answer Date Recorded Within the last year, have you been afraid of your partner or No 03/20/2018 ex-partner? Within the last year, have you been humiliated or emotionally No 03/20/2018 abused in other ways by your partner or ex-partner? Within the last year, have you been kicked, hit, slapped, or No 03/20/2018 otherwise physically hurt by your partner or ex-partner? Within the last year, have you been raped or forced to have any No 03/20/2018 kind of sexual activity by your partner or ex-partner? Food Insecurity Answer Date Recorded Within the past 12 months, you worried that your food would Never true 2018 run out before you got money to buy more. Within the past 12 months, the food you bought just didn't Never true 2018 last and you didn't have money to get more. Transportation Needs Answer Date Recorded In the past 12 months, has lack of transportation kept you from No 03/20/2018 medical appointments or from getting medications? In the past 12 months, has lack of transportation kept you from No 03/20/2018 meetings, work, or getting things needed for daily living? Sex Assigned at Date Recorded Not on file Job Start Date Occupation Industry Not on file Not on file Not on file Travel History Travel Start Travel End No recent travel history available. documented as of this encounter Last Filed Vital Signs Vital Sign Reading Time Taken Comments Blood Pressure 128/60 12/04/2018 9:37 AM EDT Pulse 63 12/04/2018 9:37 AM EDT Temperature 37.1 12/04/2018 9:37 AM EDT C (98.7 F) Respiratory Rate - - Oxygen Saturation 97% 12/04/2018 9:37 AM EDT Inhaled Oxygen Concentration - - Weight 49.9 kg (110 lb) 12/04/2018 9:37 AM EDT Height 147.3 cm (4' 10") 12/04/2018 9:37 AM EDT Body Mass Index 22.99 12/04/2018 9:37 AM EDT documented in this encounter Patient Instructions Patient InstructionsRosanne Martinez MD - 12/04/2018 9:40 AM EDTYou are doing well today Please continue current medications. Your weight is much improved. Please check laboratory tests today and I will send results. Follow up in 7 months, sooner if any problems or concerns. documented in this encounter Progress Notes Rosanne Martinez MD - 12/04/2018 9:40 AM EDT Nursing Notes: Aisha Rico 12/04/2018 9:45 AM Signed Chief Complaint Patient presents with Check Up re certification for home ox., annual check up. Piano Stringer: Edgar Nick MD, last appointment 05/03/18 Board Certified Music Therapist: Dr Jameson, last seen 11/23/18 Chief Complaint: Xiomara Pearce is a 78-y.o. female who presents for follow up of COPD and oxygen check She feels great She is still raising her grandson, now age 5 History of Present Illness/ROS: Here for follow up COPD, , CAD.and oxygen level check/re-certification COPD: Sees Dr Jameson 11/23/18, Pulmonary follow up. He has her on Trelegy and she is doing well on it. He gave her a influenza shot at that visit. She feels fantastic on this. She still uses oxygen at night. Cardiac: Saw Edgar Nick MD 05/03/18. Stable, no med changes made, planned CHRISTINA in 1 yr. She is doing well and denies chest pain Last Hospitalized 03/27-03/30/18, [facility] Anemia: She appeared pale last visit. Hg was 9.8 I had her start iron. She is tolerating it well. Denies bloody or black stool, denies abdominal pain. Review of Systems - General ROS: negative for - chills or fever, unexpected weight changes ENT ROS: negative for - headaches, nasal congestion, nasal discharge, sinus pain , sore throat or visual changes Respiratory ROS: negative for - cough, hemoptysis or shortness of breath Cardiovascular ROS: negative for - chest pain, dyspnea on exertion, edema or palpitations Gastrointestinal ROS: no abdominal pain, change in bowel habits, or black or bloody stools Neuro: denies headache, focal weakness, numbness Psych: Denies depression Office Visit on 05/03/2018 Component Date Value Ref Range Status Ventricular Rate 05/03/2018 90 BPM Final Atrial rate 05/03/2018 90 BPM Final P-R Interval 05/03/2018 158 ms Final QRS Duration 05/03/2018 80 ms Final Q-T Interval 05/03/2018 360 ms Final QTC Calculation (Bezet) 05/03/2018 440 ms Final P [place] 05/03/2018 75 degrees Final R [place] 05/03/2018 34 degrees Final T [place] 05/03/2018 81 degrees Final Diagnosis Line 05/03/2018 Final Value:Sinus rhythm with Premature atrial complexes Cannot rule out Septal infarct , age undetermined Abnormal ECG When compared with ECG of 16-NOV-2016 09:17, Vent. rate has increased BY 32 BPM Confirmed by EDGAR NICK MD ([id number]) ([id number]) on 05/07/2018 11:06:22 AM Lab Results Component Value Date WBC 10.99 (H) 04/11/2018 HGB 9.8 (L) 04/11/2018 HCT 31.5 (L) 04/11/2018 PLAT 232 04/11/2018 Lab Results Component Value Date NA 139 04/11/2018 K 3.6 04/11/2018 CL 107 04/11/2018 CO2 23 04/11/2018 GLUCOSE 112 (H) 04/11/2018 BUN 10 04/11/2018 CREATININE 0.5 (L) 04/11/2018 CALCIUM 9.4 04/11/2018 TP 7.7 06/30/2017 ALBUMIN 4.4 06/30/2017 AST 27 06/30/2017 ALT 29 06/30/2017 ALK 72 06/30/2017 TBILI 0.5 06/30/2017 EGFR >60 04/11/2018 Magnesium level: 1.6 on 04/11/18 Ref. Range 04/11/2018 14:59 TSH Latest Ref Range: 0.47 - 4.68 uIu/ml 2.73 Free T4 Latest Ref Range: 0.8 - 2.2 NG/DL 1.4 Past Medical History: Diagnosis Date Aortic stenosis, moderate Breast cancer (HCC) lt breast lumpectomy chemotherapy, 2005 CAD (coronary artery disease) s/p OK Chemotherapy chemo and radiation both COPD (chronic obstructive pulmonary disease) (HCC) noted 12/30/[address] Jameson, conchita, and Dr. Larkin Coronary artery disease 1989 angina, saw Dr. Marx in the past Depression 04/20/2007 Diabetes mellitus noted 12/30/06 PT UNAWARE OF THIS Emphysema noted 12/30/06 Essential Hypertension 04/20/2007 Exposure to unspecified radiation GERD (gastroesophageal reflux disease) Hyperlipidemia 04/20/2007 Hypothyroidism 04/20/2007 Lung cancer (HCC) left 2006, right 2007; wedge resections, then radiation therapy LUNG NODULES noted 12/30/06 bilateral Menarche age 12 Other postprocedural status(V45.89) lt breast ca, lumpectomy Pneumonia Poisoning, glutethimide group Postmenopausal Special screening for malignant neoplasms, colon 04/20/2007 Colonoscopy 02/08 VHD (valvular heart disease) aortic regurg and stenosis on Echo 2010, EF 76% Past Surgical History: Procedure Laterality Date [facility] BREAST BIOPSY 12/01/2015 LAPS SURG URTL SSP F/STRS INCONT [address] BSO, OMENTECTOMY W/LIYAH 1995 CT MASTECTOMY,PARTIAL, WITH AXILLARY LYMPHADENECTOMY 12/10/05 left SEGMENTAL LUNG RESECTION 2006 Left SEGMENTAL LUNG RESECTION 2007 Right TOTAL ABD.HYSTERECTOMY W/WO REM 1971 age 41 WEDGE RESECTION OF LUNG,SINGLE/ 2007 and 2008, bilateral. Current Outpatient Medications: albuterol HFA (VENTOLIN) 108 (90 Base) MCG/ACT Inhalation Aero Soln, Take 2 Puffs by inhalation EVERY SIX HOURS NEEDED (sob)., Disp: 1 Inhaler, Rfl: 11 Ascorbic Acid (VITAMIN C) 500 MG Oral Cap, Take 500 mg by mouth DAILY., Disp: , Rfl: aspirin (SB LOW DOSE ASA EC) 81 MG PO TBEC, Take 1 Tab by mouth DAILY. , Disp: , Rfl: ferrous sulfate 325 (65 Fe) MG Oral Tab, Take 1 Tab by mouth DAILY., Disp: 90 Tab, Rfl: 1 levothyroxine (SYNTHROID) 75 MCG Oral Tab, TAKE ONE TABLET BY MOUTH EVERY DAY BEFORE BREAKFAST, Disp: 90 Tab, Rfl: 2 metoprolol succinate (TOPROL XL) 50 MG Oral TABLET SR 24 HR, TAKE ONE TABLET BY MOUTH EVERY DAY, Disp: 90 Tab, Rfl: 3 Omeprazole delayed rel cap 20 MG Oral CAPSULE DELAYED RELEASE, TAKE ONE TO TWO CAPSULES BY MOUTH EVERY DAY, Disp: 180 Cap, Rfl: 1 oxybutynin (DITROPAN XL) 10 MG Oral TABLET SR 24 HR, TAKE ONE TABLET BY MOUTH EVERY DAY, Disp: 90 Tab, Rfl: 2 potassium chloride (K-TAB) 10 MEQ Oral Tab CR, TAKE ONE TABLET BY MOUTH EVERY DAY, Disp: 90 Tab, Rfl: 1 Rosuvastatin Calcium (CRESTOR) 40 MG Oral Tab, Take 1 Tab by mouth DAILY., Disp: 90 Tab, Rfl: 3 sertraline (ZOLOFT) 25 MG Oral Tab, TAKE ONE TABLET BY MOUTH EVERY DAY, Disp: 90 Tab, Rfl: 3 TRELEGY ELLIPTA 100-62.5-25 MCG/INH Inhalation AEROSOL POWDER, BREATH ACTIVATED, INHALE ONE PUFF BY MOUTH EVERY DAY, Disp: 1 Each, Rfl: 5 No Known Allergies Social History Socioeconomic History Marital status: Spouse name: Not on file Number of children: 3 Years of education: Not on file Highest education level: Not on file Occupational History Not on file Social Needs Financial resource strain: Not hard at all Food insecurity: Worry: Never true Inability: Never true Transportation needs: Medical: No Non-medical: No Tobacco Use Smoking status: Former Smoker Packs/day: 2.00 Years: 56.00 Pack years: 112.00 Types: Cigarettes Last attempt to quit: 03/09/2006 Years since quittin.7 Smokeless tobacco: Never Used Substance and Sexual Activity Alcohol use: Yes Comment: social Drug use: Yes Types: Prescription Sexual activity: Not Currently Partners: Male Lifestyle Physical activity: Days per week: 0 days Minutes per session: 0 min Stress: Only a little Relationships Social connections: Talks on phone: More than three times a week Gets together: More than three times a week Attends sabianist service: Never Active member of club or organization: No Attends meetings of clubs or organizations: Never Relationship status: Intimate partner violence: Fear of current or ex partner: No Emotionally abused: No Physically abused: No Forced sexual activity: No Other Topics Concern Back Care Not Asked Bike Helmet Not Asked Blood Transfusions Not Asked Caffeine Concern Not Asked Exercise Not Asked Hobby Hazards Not Asked International Travel Not Asked Service Not Asked Occupational Exposure Not Asked Seat Belt Not Asked Self-Exams Not Asked Sleep Concern Not Asked Special Diet Not Asked Stress Concern Not Asked Weight Concern Not Asked Social History Narrative in 2018 Son 2018 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 Raising a great grandson :heaven 3 adult children; daughter Mala, two sons; Suleiman and Mic Family History Problem Relation Age of Onset Diabetes Mother Heart Mother Hypertension Mother Stroke Mother Psychiatry Father committed suicide after brothers Diabetes Brother Heart Brother Other Medical Illness Brother 7 Appendix ruptured; Hypertension Brother Heart Brother Heart Sister Stroke Sister Diabetes Sister Heart Sister OK Diabetes Sister Cancer Son liver, hepatitis c No Known Problems Son No Known Problems Son PHYSICAL EXAMINATION: BP 128/60 (BP Location: Right arm, Patient Position: Sitting) | Pulse 63 | Temp 98.7 F (37.1 C) | Ht 4' 10" (1.473 m) | Wt 110 lb (49.9 kg) | SpO2 97% | BMI 22.99 kg/m Physical Examination: General appearance - alert, well appearing, and in no distress Mental status - alert, oriented to person, place, and time, normal mood, behavior, speech, dress, motor activity, and thought processes Eyes - pupils equal , sclera anicteric Neck - supple, no cervical or supraclavicular adenopathy, carotids upstroke normal bilaterally, no bruits, thyroid exam: thyroid is normal in size without nodules or tenderness, no neck masses palpated. Chest/Lungs - clear to auscultation, no wheezes, rales or rhonchi, symmetric air entry, good aeration Heart - normal rate, regular rhythm, 2/6 systolic murmur right upper sternal border , rubs, clicks or gallops Abdomen - soft, non tender on palpation, nondistended, no masses or hepatosplenomegaly, bowel soundsnormal, normal to percussion, no guarding or rebound. No costervertebral angle tenderness Neurological - alert, oriented, normal speech, no gross focal findings or movement disorder noted Extremities - dorsalis pedis pulses normal, no pedal edema, no clubbing or cyanosis ASSESSMENT/PLAN: ICD-9-CM ICD-10-CM 1. Chronic obstructive pulmonary disease, unspecified COPD type (HCC) 496 J44.9 2. Aortic stenosis, moderate 424.1 I35.0 3. Hypothyroidism, unspecified type 244.9 E03.9 THYROID STIMULATING HORMONE 4. Anemia, unspecified type 285.9 D64.9 CBC NO DIFFERENTIAL FERRITIN IRON 5. Heart disease, unspecified 429.9 I51.9 COMPREHENSIVE METABOLIC PANEL LDL, DIRECT COPD is oxygen dependant, has concentrator and bottles at home. Today her O2 sat on RA walking is 96%, 98% at rest. She says her oxygen use is down to hs mostly. Patient Instructions You are doing well today Please continue current medications. Your weight is much improved. Please check laboratory tests today and I will send results. Follow up in 7 months, sooner if any problems or concerns. Author: Rosanne Martinez MD 12/04/2018 10:05 documented in this encounter Plan of Treatment Date Type Specialty Care Team Description 03/14/2019 Orders Only Cardiology 03/22/2019 Office Visit Cardiology Edgar Nick MD [facility] [place] [address] 05/24/2019 Office Visit Pulmonary Auide Jameson MD [address] [place] [id number] Name Type Priority Associated Diagnoses Order Schedule CBC NO DIFFERENTIAL Lab Routine Anemia, unspecified type Expected: 2018 (Approximate), Expires: 12/05/2019 FERRITIN Lab Routine Anemia, unspecified type Expected: 12/04/2018 (Approximate), Expires: 12/05/2019 IRON Lab Routine Anemia, unspecified type Expected: 12/04/2018 (Approximate), Expires: 12/05/2019 COMPREHENSIVE METABOLIC Lab Routine Heart disease, Expected: 12/04/2018 PANEL unspecified (Approximate), Expires: 12/05/2019 LDL, DIRECT Lab Routine Heart disease, Expected: 12/04/2018 unspecified (Approximate), Expires: 12/05/2019 THYROID STIMULATING Lab Routine Hypothyroidism, Expected: 12/04/2018 HORMONE unspecified type (Approximate), Expires: 12/05/2019 Health Maintenance Due Date Last Done Comments ZOSTER IMMUNIZATION SERIES 1990 (1 of 2) DEPRESSION SCREENING 03/20/2019 03/20/2018, 03/17/2017 FALL RISK ASSESSMENT 03/20/2019 03/20/2018, 03/20/2018 MEDICARE ANNUAL WELLNESS 03/20/2019 03/20/2018, 03/17/2017 VISIT PNEUMOCOCCAL 65+YRS Completed 07/12/2017, 05/05/2016 INFLUENZA VACCINE Completed 11/23/2018, 11/23/2017, 12/08/2016, Additional history exists HPV IMMUNIZATION SERIES Aged Out No longer eligible based on patient's age to complete this topic MENINGOCOCCAL VACCINE IMM Aged Out No longer eligible based on patient's age to complete this topic documented as of this encounter Goals Goal Patient Goal Associated Recent Patient-Stated? Author Type Problems Progress Depression Depression 4 No Michelle, screen (PHQ-9) (03/17/2017 Rosanne Lomax, total score < 5 9:06 AM EST) Note: This is an individualized treatment (depression) goal for Xiomara Pearce: Displayed above is your goal for a depression screening (PHQ-9) score that would indicate good control of your depression. Keep a regular sleep schedule Lifestyle No Rosanne Martinez MD Note: This is an individualized lifestyle goal for Xiomara Pearce: Please maintain a regular sleep schedule. This may help with some symptoms of depression. Keep immunizations current Lifestyle No Rosanne Martinez MD Note: This is an individualized lifestyle goal for Xiomara Lomax Pearce: Please be sure to keep up-to-date on recommended immunizations. For example, this would include a yearly influenza vaccine. Immunization status can be seen by looking at the Health Maintenance sections of your e[facility], Plan of Care, and any After Visit Summaries. Take all prescribed medications as Self-management No Rosanne Martinez MD directed Note: This is an individualized self-management goal for Xiomara Pearce: Please take all prescribed medications as directed. 1. Do not skip doses. If you cannot afford your medications, talk with your doctor. 2. Use a pill reminder system such as a pill box if needed. Your pharmacist can help you with this. 3. Contact your Pharmacy 5 days before your medication runs out. If you cannot take your medications for any reasons, talk with your doctor. 4. Please bring all of your medication bottles and inhalers (or a list of all your medications/inhalers) with you to every visit. Potential barriers to meeting all of your care plan goals will continue to be addressed on an ongoing basis. documented as of this encounter Results Not on filedocumented in this encounter Visit Diagnoses Diagnosis Chronic obstructive pulmonary disease, unspecified COPD type (HCC) - Primary Aortic stenosis, moderate Aortic valve disorders Hypothyroidism, unspecified type Anemia, unspecified type Heart disease, unspecified documented in this encounter Insurance Payer Benefit Plan / Subscriber ID Effective Dates Phone Address Type Group [facility] xxxxxxxxx Effective for Medicare TODAYS OPTIONS TODAYS OPTIONS all dates Advantage Guarantor Name Account Type Relation to Date of Phone Billing Patient Address Xiomara Pearce Personal/Family 1940 [address] [phone] [place], [place] (Work) [id number] documented as of this encounter Advance Directives Type Date Recorded Patient Mental Health Counselor Explanation Advance Directives 08/18/2017 10:11 AM MOLST Orders Code Status Date Activated Date Inactivated Comments DNR/DNI 08/10/2017 10:43 AM Does patient have decision making capacity? yes Order discussed with: Patient Prior provider, Dr. Kendrick, signed form, discussed all options and patient/ surrogate requested and agreed to: DNR/DNI, but will allow bipap trial
--- OUTSIDE RECORDS SUMMARY | 2019-01-09 12:49 | XMS REPORT | Summary of Care ---
:1940 Author Organization [facility] Address [address] [facility] [place] [address] Care Team Providers Name Role Phone Rosanne Martinez MD Primary Care Provider Audie Jameson MD Unavailable Edgar Billy MD Unavailable Kendy Marino RN Unavailable Unavailable Reason for Visit Reason Comments COPD Encounter Details Date Type Department Care Team Description 11/23/2018 Office Visit [facility] Audie Jameson, Centrilobular emphysema (HCC) (Primary Dx); [address] [facility] Need for prophylactic vaccination and [place] [address] [address] [phone] [place] [address] Allergies No Known Allergiesdocumented as of this encounter (statuses as of 11/23/2018) Medications Medication Sig Dispensed Refills Start Date [...] Oral TabIndications: BEFORE BREAKFAST Hypothyroidism, unspecified type Fluticasone-Umeclidin- Take 1 INHL by 1 Each 5 04/27/2018 Active Vilant (TRELEGY inhalation DAILY. ELLIPTA) 100-62.5-25 MCG/INH Inhalation AEROSOL POWDER, BREATH ACTIVATED Rosuvastatin Calcium Take 1 Tab by 90 Tab 3 05/03/2018 Active (CRESTOR) 40 MG Oral mouth DAILY. 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 How often do you attend faith or Never 03/20/2018 baptism services? Do you belong to any clubs or No 03/20/2018 organizations such as faith groups, unions, fraternal or athletic groups, or school groups? How [...] Sign Reading Time Taken Comments Blood Pressure 122/68 11/23/2018 1:26 PM EDT Pulse 57 11/23/2018 1:26 PM EDT Temperature - - Respiratory Rate 17 11/23/2018 1:26 PM EDT Oxygen Saturation 99% 11/23/2018 1:26 PM EDT room air Inhaled Oxygen Concentration - - Weight 44.6 kg (98 lb 6.4 oz) 11/23/2018 1:26 PM EDT Height 147.3 cm (4' 10") 11/23/2018 1:26 PM EDT Body Mass Index 20.57 11/23/2018 1:26 PM EDT documented in this encounter Progress Notes Audie Jameson MD - 11/23/2018 1:30 PM EDT Name: Xiomara Pearce : 1940 Date of Service: 11/23/2018 Referring Practioner: Audie Jameson Primary Care Provider: Rosanne Martinez History of Present Illness Xiomara Pearce is a 78-y.o. female who presents for a reevaluation of her COPD. Overall, the patientfeels better. Since her last visit, she has been able to gain weight. She feels less short of breath. She does not have any problems swallowing as long as she takes her time. She feels that Trelegyhas actually led to improvement in her breathing. The patient denies any chest pain, abdominal pain, melena, hematuria,rash or swelling of any joints. She denies any fever or chills. She is not coughing any purulent secretions. She has not received her influenza vaccination yet. 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 Ascorbic Acid (VITAMIN C) 500 MG Oral Cap Take 500 mg by mouth DAILY. aspirin (SB LOW DOSE ASA EC) 81 MG PO TBEC Take 1 Tab by mouth DAILY. ferrous sulfate 325 (65 Fe) MG Oral Tab Take 1 Tab by mouth DAILY. Wuqqgoidbkg-Bjewvywse-Gusmgx (TRELEGY ELLIPTA) 100-62.5-25 MCG/INH Inhalation AEROSOL POWDER,BREATH ACTIVATED Take 1 INHL by inhalation DAILY. levothyroxine (SYNTHROID) 75 MCG Oral Tab TAKE ONE TABLET BY MOUTH EVERY DAY BEFORE BREAKFAST metoprolol succinate (TOPROL XL) 50 MG Oral TABLET SR 24 HR TAKE ONE TABLET BY MOUTH EVERY DAY Omeprazole delayed rel cap 20 MG Oral CAPSULE DELAYED RELEASE TAKE ONE TO TWO CAPSULES BY MOUTH EVERY DAY oxybutynin (DITROPAN XL) 10 MG Oral TABLET SR 24 HR TAKE ONE TABLET BY MOUTH EVERY DAY potassium chloride (K-TAB) 10 MEQ Oral Tab CR TAKE ONE TABLET BY MOUTH EVERY DAY Rosuvastatin Calcium (CRESTOR) 40 MG Oral Tab Take 1 Tab by mouth DAILY. sertraline (ZOLOFT) 25 MG Oral Tab TAKE ONE TABLET BY MOUTH EVERY DAY No current facility-administered medications for this visit. Past Medical History: Diagnosis Date Aortic stenosis, moderate Breast cancer (HCC) lt breast lumpectomy chemotherapy, 2005 CAD (coronary artery disease) s/p [facility] Chemotherapy chemo and radiation both COPD (chronic obstructive pulmonary disease) (HCC) noted 12/30/[address] Jameson, stable, and Dr. Larkin Coronary artery disease 1989 [...] 76% Past Surgical History: Procedure Laterality Date [facility] BREAST BIOPSY 12/01/2015 LAPS SURG URTL SSP F/STRS INCONT 1971 Bladder suspension surgery [place] BSO, OMENTECTOMY W/LIYAH 1995 [place] MASTECTOMY,PARTIAL, WITH AXILLARY LYMPHADENECTOMY 12/10/05 left SEGMENTAL LUNG RESECTION 2006 Left SEGMENTAL LUNG RESECTION 2007 Right TOTAL ABD.HYSTERECTOMY W/WO REM 1972 age 41 WEDGE RESECTION OF LUNG,SINGLE/ 2006 and 2008, bilateral. Family History Problem Relation Age of Onset Diabetes Mother Heart Mother Hypertension Mother Stroke Mother Psychiatry Father committed suicide after brothers Diabetes Brother Heart Brother Other Medical Illness Brother 7 Appendix ruptured; Hypertension Brother Heart Brother Heart Sister Stroke Sister Diabetes Sister Heart Sister VA Diabetes Sister Cancer Son liver, hepatitis c No Known Problems Son No Known Problems Son REVIEW OF SYSTEMS: A remaining review of systems was negative except for as noted in the history of present illness/subjective. PHYSICAL EXAMINATION: VITALS: Vitals: 11/23/18 1326 BP: 122/68 BP Location: Right arm Patient Position: Sitting Pulse: 57 Resp: 17 SpO2: 99% Weight: 98 lb 6.4 oz (44.6 kg) Height: 4' 10" (1.473 m) GENERAL: alert, oriented, no acute distress, cachectic HEENT: sclera normal, anicteric, mucous membrane moist, conjunctivitis pink and pale, pupils equal,round, reactive to light, extraocular movement intact, posterior pharynx: small pharynx, tongue midline , dry mucous membranes. NECK: no mass, no adenopathy, no thyromegaly, supple, thyroid: not enlarged, symmetric, no tenderness/mass/nodules, no jugular venous distention. LUNGS: diminished breath sounds bilateral. HEART: regular rhythm, no gallops, no rubs. High-pitched systolic ejection murmur 2/6 over the aorta S1: normal S2: normal. ABDOMEN: soft, non tender, without masses or organomegaly, nondistended, normal bowel sounds, without guarding, without rebound. EXTREMITIES: no clubbing, cyanosis, or edema. NEUROLOGICAL: alert and oriented x3 gait: normal. Impression/Plan: 1. Centrilobular emphysema.Doing great as far as I am concerned. At this point , would recommend to continue Trelegy once a day and albuterol as needed. Her laboratory evaluation showed that her CO2 was 23 so the patient is not a CO2 retainer. 2. Immunization. I did recommend for the patient received the high-dose influenza vaccination. She did agree with that. She will receive one today. 3. Pulmonary cachexia. Slowly improving. The patient will come back for follow-up in 6 months Author: Audie Jameson MD 13:41 11/23/2018 documented in this encounter Plan of Treatment Date Type Specialty Care Team Description 12/04/2018 Office Visit Family Practice Rosanne Martinez MD [address] [place] [address] 03/14/2019 Orders Only Cardiology 03/22/2019 Office Visit Cardiology Edgar Billy MD [address] [place] [address] 05/24/2019 Office Visit Pulmonary Audie Jameson MD [address] [place] [address] [phone] Health Maintenance Due Date Last Done Comments ZOSTER IMMUNIZATION SERIES 1990 (1 of 2) INFLUENZA VACCINE (#1) 2018 11/23/2017, 12/08/2016, 01/01/2016, Additional history exists DEPRESSION SCREENING 03/20/2019 03/20/2018, 03/17/2017 FALL RISK ASSESSMENT 03/20/2019 03/20/2018, 03/20/2018 MEDICARE ANNUAL WELLNESS 03/20/2019 03/20/2018, 03/17/2017 VISIT PNEUMOCOCCAL 65+YRS Completed 07/12/2017, 05/05/2016 HPV IMMUNIZATION SERIES Aged Out No longer [...] individualized lifestyle goal for Xiomara Pearce: Please be sure to keep up-to-date [...] filedocumented in this encounter Visit Diagnoses Diagnosis Centrilobular emphysema (HCC) - Primary Other emphysema Need for prophylactic vaccination and inoculation against influenza documented in this encounter Insurance Payer Benefit Plan / Subscriber ID Effective Dates Phone Address Type Group [facility] xxxxxxxxx Effective for Medicare TODAYS OPTIONS TODAYS OPTIONS all dates Advantage Guarantor Name Account Type Relation to Date of Phone Billing Patient Address Xiomara Pearce Personal/Family 1940 [address] [phone] [place], [place] (Work) [id number] documented as of this encounter Advance Directives Type Date Recorded Patient Barrel Raiser Explanation Advance Directives 08/18/2017 10:11 AM MOLST Orders Code Status Date Activated Date Inactivated Comments DNR/DNI 08/10/2017 10:43 AM Does patient have decision making capacity? yes Order discussed with: Patient Prior provider, Dr. Kendrick, signed form, discussed all options and patient/ surrogate requested and agreed to: DNR/DNI, but will allow bipap trial
[2019-01-09] MEDS ORDERED: cefTRIAXone(*) 1 GM in NS 0.9% 50 ML* 50 ML IVPB ONE (13:21)
[2019-01-09] MEDS ORDERED: Azithromycin 500 mg/250 ml NS 500 MG/250 ML BAG IVPB ONE (13:21)
[2019-01-09 14:35] LABS: Influenza A Molecular NEGATIVE (Negative); Influenza B Molecular NEGATIVE (Negative)
[2019-01-09] MEDS ORDERED: Albuterol/Ipratropium NEB.SOL* Albuterol 2.5 MG/Ipratropium 0.5 MG 3 ML INH SCH (15:00)
[2019-01-09] MEDS ORDERED: Albuterol/Ipratropium NEB.SOL* Albuterol 2.5 MG/Ipratropium 0.5 MG 3 ML INH PRN (15:07)
[2019-01-09] MEDS ORDERED: Acetaminophen TAB* 325 MG PO PRN (15:27)
[2019-01-09] MEDS ORDERED: PROCHLORPERAZINE INJ 5 MG/ML 2 ML VIAL IV PRN (15:29)
--- NOTE | 2019-01-09 17:12 | HP ---
AMENDED REPORT NOW INCLUDES DESIGNATED COSIGNER ADMISSION HISTORY AND PHYSICAL: DATE OF ADMISSION: 01/09/19 PRIMARY CARE PROVIDER: Dr. Martinez. PROVIDER: La Nena Wei NP ATTENDING PHYSICIAN: Dr. Montiel.* (DICTATED BY LA NENA WEI NP) CHIEF COMPLAINT: Shortness of breath. HISTORY OF PRESENT ILLNESS: This is a 78-year-old female with a past medical history of COPD, lung and breast cancer and recurrent pneumonia, who arrived to emergency room today for reports of coughing starting about several weeks ago, bringing up yellow phlegm and then 3 days ago developed left rib pain that radiated to the front of her chest and into her neck, that was described as dull and constant, worse with coughing; chills; and shortness of breath, normally she uses 2.5 L of oxygen at nighttime only for her COPD, though in the past 3 days she has been using it throughout the day as well. She states that she gets pneumonia about once a year around the same time same month, but without any known triggers. She has not been recently exposed to any smoke or other irritants. In the emergency room, she received ceftriaxone and azithromycin, liter of fluid as well as IV methylprednisolone. The hospitalist were asked to evaluate the patient for admission. When she was seen, the patient was mildly short of breath at rest, denied any chest pain, nausea or vomiting. She felt chilled, temperature around time assessment was 100.3 temporally. PAST MEDICAL HISTORY: Hypothyroid disease, hypercholesterolemia, hypertension, COPD requiring 2.5 L via nasal cannula at night, lung cancer, breast cancer, pneumonia, GERD, arthritis, restless leg syndrome, urge incontinence, [place], CAD, aortic stenosis, osteopenia, depression, peripheral arterial disease. PAST SURGICAL HISTORY: Hysterectomy, left breast lumpectomy, bilateral lobectomy and a tumor resection from her stomach, which she stated was benign. HOME MEDICATIONS: 1. Ellipta 100/62.5/25 one puff inhalation daily. 2. Sertraline 25 mg p.o. daily. 3. Rosuvastatin 40 mg p.o. daily. 4. Potassium chloride 10 mEq daily. 5. Oxybutynin XL 10 mg p.o. daily. 6. Omeprazole 20 to 40 mg p.o. daily. 7. Metoprolol succinate 50 mg p.o. daily. 8. Levothyroxine 50 mcg p.o. q.a.m. 9. Ferrous sulfate 325 p.o. daily. 10. Aspirin 81 mg p.o. daily. 11. Ascorbic acid 500 mg p.o. daily. 12. Albuterol 2 puffs inhalation q.6 hours p.r.n. ALLERGIES: No known drug allergies. FAMILY HISTORY: Hypertension, suicide, coronary artery disease, diabetes mellitus. SOCIAL HISTORY: Quit smoking in 2012. Drinks 2 to 3 drinks every 2 to 3 weeks. Denies any recreational drug use. 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 REVIEW OF SYSTEMS: An 11-point system review was performed and was positive for shortness of breath, left chest pleuritic pain, though not currently. Negative for abdominal pain, nausea, vomiting, or issues with moving her bowels. PHYSICAL EXAMINATION GENERAL: This is a thin well-developed older woman seen resting in bed in mild distress. VITAL SIGNS: 100.3 Fahrenheit, 85 pulse, 27 respirations, 94% oxygen on room air, 131/63 blood pressure. HEENT: Eyes: Conjunctive pink and moist. PERRLA. EOMs intact. ENT: Mucous membranes dry. Oropharynx clear. NECK: Supple. RESPIRATORY: Lung sounds clear throughout bilaterally on room air. No wheezes or rhonchi. No accessory muscle use noted. CARDIAC: S1 and S2 present. Heart rate regular. Stenosis heard. No gallops or rubs. ABDOMEN: Soft, nontender, nondistended with positive bowel sounds x4. MUSCULOSKELETAL: Strength 5/5 to bilateral upper and lower extremities. No clubbing or cyanosis appreciated. NEUROLOGIC: Sensation intact to light touch throughout. No focal deficits noted. SKIN: Intact. No rashes or lesions appreciated. PSYCH: Alert and oriented x4. Thought content organized. DIAGNOSTIC STUDIES/LAB DATA: White blood cell count 15.1, hemoglobin 11.2, hematocrit 34, platelet count 459, MPV 6.9, D-dimer 807, chloride 100, glucose 109, B-natriuretic peptide 175. Influenza A and B both negative. Chest x-ray showed stigmata of obstructive lung disease, no acute pulmonary or cardiac process evident. CTA of chest showed no pulmonary arterial filling defect to suggest pulmonary embolism. Subsegmental consolidation of the lung bases bilaterally, small right pleural effusion, atherosclerosis and stable nonsolid nodularity of the left upper lung. EKG showed sinus rhythm. ASSESSMENT: My impression - this is a 78-year-old female with a past medical history significant for chronic obstructive pulmonary disease, hypertension, hypercholesterol, pneumonia and lung cancer who was admitted on 01/09/19 for chronic obstructive pulmonary disease exacerbation and pneumonia. PLAN: 1. Pneumonia. Currently, the patient appears only mildly distressed at rest. Influenza A and B both negative. We will treat with IV ceftriaxone and azithromycin for 5 days total and oral prednisone 40 mg for 5 days total. The patient to continue oxygen therapy, DuoNebs as needed. 2. COPD exacerbation. The patient has been requiring 2.5 L of oxygen throughout the day even though she normally only wears it at nighttime, use DuoNeb q.4 hours as needed, continue home Ellipta and continue oral prednisone. 3. Hypertension. May continue metoprolol succinate, currently blood pressures are under adequate control between 131 and 150. 4. Hyperlipidemia. May continue rosuvastatin. 5. Coronary artery disease. Continue aspirin 81 mg. 6. Hyperlipidemia. Continue rosuvastatin. 7. Urge incontinence. Continue oxybutynin. 8. GERD. Continue omeprazole, though no reports of indigestion at this time. 9. Hypothyroidism. Continue levothyroxine 50 mcg in a.m. 10. Anemia of chronic inflammation, likely secondary to her COPD. Hemoglobin and hematocrit are currently 11.2 and 34, which is actually slightly improved than what she has been over the past couple of years. Continue ferrous sulfate and vitamin C. 11. Depression. Continue sertraline. No current signs or symptoms of exacerbated depression. 12. DVT prophylaxis. Lovenox. 13. Code status is DNR. CONDITION: Guarded. DISPOSITION: Admit OBV to [address] [place] [address]. TIME SPENT: Time spent on patient is about 60 minutes with more than half spent [id number]. Case was reviewed by my attending, Dr. Montiel and they agreed with the plan of care. LA NENA WEI, STE[employer] DIV[employer] SUPERVISOR [id number]/[facility] #: [id number] [facility] HOSPITALWally
[2019-01-09] MEDS: NS 0.9% 1000 ML** 1,000 ML IV SCH (17:44)
[2019-01-09] MEDS: Docusate CAP* 100 MG PO SCH (21:47)
[2019-01-10] MEDS: Levothyroxine TAB* 50 MCG TAB PO SCH (05:59)
[2019-01-10] MEDS: NS 0.9% 1000 ML** 1,000 ML IV SCH (05:59)
[2019-01-10 06:40] LABS: ABS Lymphocytes 1.2 10^3/ul (1.0-4.8); ABS Monocytes 0.7 10^3/ul (0-0.8); ABS Neutrophils 12.4 10^3/ul (1.5-7.7); Hematocrit 28 % (35-47); Hemoglobin 9.5 g/dL (12.0-16.0); Lymphocyte % 8.5 %; Mean Corpuscular HGB Conc 34 g/dL (31-36); Mean Corpuscular Hemoglobin 29 pg (27-31); Mean Corpuscular Volume 84 fL (80-97); Mean Platelet Volume 6.7 fL (7.4-10.4); Platelet Count 353 10^3/uL (150-450); Red Blood Count 3.36 10^6 /uL (3.70-4.87); Red Cell Distribution Width 14 % (10-15); White Blood Count 14.5 10^3/uL (3.5-10.8)
[2019-01-10 07:01] LABS: BUN/Creatinine Ratio 23.6 (8-20); Calcium 8.7 mg/dL (8.6-10.3); EGFR African American 129.3 (>60); EGFR Non-African American 106.9 (>60); Potassium 4.3 mmol/L (3.5-5.0)
[2019-01-10] MEDS: FLUTICASONE/UMECLIDIN/VILANTER 1 PUFF MDI INH SCH (07:43)
[2019-01-10] MEDS: Aspirin EC TAB* 81 MG TAB.EC PO SCH (09:24)
[2019-01-10] MEDS: predniSONE TAB* 20 MG PO SCH (09:25)
[2019-01-10] MEDS: Ferrous Sulfate TAB* 325 MG PO SCH (09:25)
[2019-01-10] MEDS: Potassium Chlor TAB* 10 MEQ TAB.ER PO SCH (09:26)
[2019-01-10] MEDS: Pantoprazole TAB * 40 MG TAB PO SCH (09:26)
[2019-01-10] MEDS: Ascorbic Acid TAB* 500 MG PO SCH (09:27)
[2019-01-10] MEDS: Atorvastatin* 80 MG TAB PO SCH (09:27)
[2019-01-10] MEDS: Sertraline* 25 MG TAB PO SCH (09:27)
[2019-01-10] MEDS: Oxybutynin XL TAB* 5 MG PO SCH (09:28)
[2019-01-10] MEDS: Docusate CAP* 100 MG PO SCH ×2 (09:28→22:35)
[2019-01-10] MEDS: Metoprolol Succinate XL TAB* 50 MG PO SCH (09:33)
[2019-01-10] MEDS ORDERED: cefTRIAXone(*) 1 GM in NS 0.9% 50 ML* 50 ML IVPB SCH (14:00)
[2019-01-10] MEDS ORDERED: Azithromycin 500 mg/250 ml NS 500 MG/250 ML BAG IVPB SCH (15:00)
--- NOTE | 2019-01-10 16:41 | PN ---
Subjective Date of Service: 01/10/19 Interval History: HOSPITALIST PROGRESS NOTE Patient seen and examined at bedside. Care reviewed and d/w Can Ruiz RN. She feels a little better today. Breathing is not back to baseline, but she was just weaned to room air. Family History: Unchanged from Admission Social History: Unchanged from Admission Past Medical History: Unchanged from Admission Objective Active Medications: Acetaminophen (Tylenol Tab*) 650 mg PO Q4H PRN PRN Reason: MILD PAIN or TEMP > 100.4 Albuterol/Ipratropium (Duoneb (Albuterol 2.5 Mg/Ipratropium 0.5 Mg)) 1 neb INH [id number] AWAKE PRN PRN Reason: SOB/WHEEZING Ascorbic Acid (Vitamin C Tab*) 500 mg PO DAILY [facility] Last Admin: 01/10/19 09:27 Dose: 500 mg Aspirin (Aspirin Ec Tab*) 81 mg PO DAILY [facility] Last Admin: 01/10/19 09:24 Dose: 81 mg Atorvastatin Calcium (Lipitor*) 80 mg PO DAILY [facility] Last Admin: 01/10/19 09:27 Dose: 80 mg Docusate Sodium (Colace Cap*) 100 mg PO BID [facility] Last Admin: 01/10/19 09:28 Dose: 100 mg Ferrous Sulfate (Ferrous Sulfate Tab*) 325 mg PO DAILY [facility] Last Admin: 01/10/19 09:25 Dose: 325 mg Azithromycin (Zithromax 500 Mg/250 Ml) 500 mg in 250 mls @ 250 mls/hr IVPB Q24H [facility] Stop: 01/14/19 14:59 Last Admin: 01/10/19 15:19 Dose: 250 mls/hr Ceftriaxone Sodium 1 gm/ (Sodium Chloride) 50 mls @ 100 mls/hr IVPB Q24H [facility] Stop: 01/14/19 13:59 Last Admin: 01/10/19 14:32 Dose: 100 mls/hr Levothyroxine Sodium (Synthroid Tab*) 50 mcg PO QAM@0600 [facility] Last Admin: 01/10/19 05:59 Dose: 50 mcg Metoprolol Succinate (Toprol Xl Tab*) 50 mg PO DAILY [facility] Last Admin: 01/10/19 09:33 Dose: Not Given Oxybutynin Chloride (Ditropan Xl Tab*) 10 mg PO DAILY [facility] Last Admin: 01/10/19 09:28 Dose: 10 mg Pantoprazole Sodium (Protonix Tab*) 40 mg PO DAILY [facility] Last Admin: 01/10/19 09:26 Dose: 40 mg Potassium Chloride (Klor Con Er Tab*) 10 meq PO DAILY [facility] Last Admin: 01/10/19 09:26 Dose: 10 meq Prednisone (Deltasone Tab*) 40 mg PO DAILY [facility] Stop: 01/15/19 08:59 Last Admin: 01/10/19 09:25 Dose: 40 mg Prochlorperazine Edisylate (Compazine Inj*) 5 mg IV Q6H PRN PRN Reason: NAUSEA/VOMITING Sertraline HCl (Zoloft*) 25 mg PO DAILY [facility] Last Admin: 01/10/19 09:27 Dose: 25 mg Vital Signs - 8 hr 01/10/19 11:03 Temperature 97.4 F Pulse Rate 57 Respiratory 16 Rate Blood Pressure 117/37 (mmHg) O2 Sat by Pulse 98 Oximetry Oxygen Devices in Use Now: Nasal Cannula Appearance: Pleasant elderly lady sitting up in a chair in [facility]. Eyes: No Scleral Icterus Ears/Nose/Mouth/Throat: Mucous Membranes Moist Neck: Trachea Midline Respiratory: Symmetrical Chest Expansion and Respiratory Effort, - - BS+ bilaterally with faint wheezing Cardiovascular: RRR - Normal S1 and S2 Abdominal: NL Sounds; No Tenderness; No Distention Neurological: Alert and Oriented x 3, NL Muscle Strength and Tone Result Diagrams: 01/10/19 06:27 01/10/19 06:27 Microbiology and Other Data: Microbiology 01/10/19 00:00 Legionella Urinary Antigen - Final Urine Negative Legionella Antigen Streptococcus pneumoniae Ag Screen - Final Negative S. pneumo Antigen Assess/Plan/Problems-Billing Assessment: Mrs Pearce is a 78yo F with PMH of hypothyroidism, HLD, HTN, COPD on nocturnal O2, lung CA, breast CA, CAD, , who presented to ED with c/o dyspnea, found to have COPD exacerbation secondary to pneumonia. - Patient Problems (1) Acute respiratory failure with hypoxia Comment: - Acute on chronic secondary to COPD exacerbation due to Pneumonia. - Improving. (2) COPD exacerbation Comment: - Continue bronchodilators, steroids, and antibiotics. (3) Pneumonia Comment: - CT shows bibasilar consolidations. - Negative Legionella, pneumococcal Ag; Flu A and B is also negative. (4) CAD (coronary artery disease) Comment: - Stable. - Continue ASA, statin, metoprolol. (5) HLD (hyperlipidemia) Comment: - Continue atorvastatin. (6) HTN (hypertension) Comment: - Controlled. - Continue metoprolol. (7) DVT prophylaxis Comment: High risk - SQ heparin TID (8) DNR (do not resuscitate) Comment: Status and Disposition: OBV. Anticipate d/c in AM.
[2019-01-10] MEDS: Heparin VIAL(*) 5000 UNITS/ML VIAL (FIVE THOUSAND) SUBCUT SCH (22:36)
[2019-01-11] MEDS: Heparin VIAL(*) 5000 UNITS/ML VIAL (FIVE THOUSAND) SUBCUT SCH (07:14)
[2019-01-11] MEDS: Levothyroxine TAB* 50 MCG TAB PO SCH (07:18)
[2019-01-11] MEDS: FLUTICASONE/UMECLIDIN/VILANTER 1 PUFF MDI INH SCH (07:31)
[2019-01-11] MEDS: predniSONE TAB* 20 MG PO SCH (09:37)
[2019-01-11] MEDS: Potassium Chlor TAB* 10 MEQ TAB.ER PO SCH (09:37)
[2019-01-11] MEDS: Docusate CAP* 100 MG PO SCH (09:37)
[2019-01-11] MEDS: Ascorbic Acid TAB* 500 MG PO SCH (09:37)
[2019-01-11] MEDS: Metoprolol Succinate XL TAB* 50 MG PO SCH (09:37)
[2019-01-11] MEDS: Aspirin EC TAB* 81 MG TAB.EC PO SCH (09:37)
[2019-01-11] MEDS: Sertraline* 25 MG TAB PO SCH (09:37)
[2019-01-11] MEDS: Atorvastatin* 80 MG TAB PO SCH (09:37)
[2019-01-11] MEDS: Oxybutynin XL TAB* 5 MG PO SCH (09:37)
[2019-01-11] MEDS: Pantoprazole TAB * 40 MG TAB PO SCH (09:38)
[2019-01-11] MEDS: Ferrous Sulfate TAB* 325 MG PO SCH (09:38)
[2019-01-11 12:24] VITALS: BP 153/57
--- NOTE | 2019-01-11 21:15 | DS ---
CC: Dr. Martinez * DISCHARGE SUMMARY: DATE OF ADMISSION: 01/09/19 DATE OF DISCHARGE: 01/11/19 PRIMARY CARE PROVIDER: Dr. Martinez. DISCHARGE DIAGNOSES: 1. Acute on chronic hypoxic respiratory failure. 2. Chronic obstructive pulmonary disease exacerbation. 3. Community-acquired pneumonia. SECONDARY DIAGNOSES: 1. Hypothyroidism. 2. Hyperlipidemia. 3. Hypertension. 4. Chronic obstructive pulmonary disease, on nocturnal O2. 5. History of lung cancer. 6. History of breast cancer. 7. Coronary artery disease. 8. Aortic stenosis. MEDICATION LIST: 1. Fluticasone/umeclidinium/vilanterol 100/62.5/25 one puff inhaled daily. 2. Sertraline 25 mg p.o. daily. 3. Rosuvastatin 40 mg p.o. daily. 4. Potassium chloride 10 mEq p.o. daily. 5. Oxybutynin XL 10 mg p.o. daily. 6. Levothyroxine 50 mcg p.o. daily. 7. Ferrous sulfate 325 mg p.o. daily. 8. Aspirin 81 mg p.o. daily. 9. Vitamin C 500 mg p.o. daily. 10. Albuterol HFA 2 puffs inhaled q.6 hours p.r.n. shortness of breath and wheezing. 11. Omeprazole 40 mg p.o. daily. Medication changed: 1. Metoprolol succinate was reduced from 50 to 25 mg p.o. daily. New medications: 1. Cefuroxime 500 mg p.o. b.i.d. for 5 more days. 2. Azithromycin 250 mg p.o. daily for 3 more days. 3. Prednisone taper as follows: 40 mg p.o. daily for 3 days, 30 mg for 3 days, 20 mg for 3 days, 10 mg for 3 days, 5 mg for 3 days, and stop. HOSPITAL COURSE: Ms. Pearce is a 78-year-old female with a past medical history as stated above that presented to the emergency room with complaints of progressive shortness of breath, productive cough with yellow sputum associated with left-sided chest pain that was worst with inspiration. She usually wears oxygen 2.5 L at night for her COPD, but during the three days prior to admission , she had to use it during the day as well due to dyspnea. For more details of about her presentation, I refer you to her history and physical. In the emergency room, the patient had a chest x-ray that showed stigmata of obstructive lung disease. She was found to have an elevated D-dimer at 807 and a CTA of the chest that showed no pulmonary arterial filling defect to suggest pulmonary embolism, but subsegmental consolidation at the lung bases bilaterally was present. There was a small right pleural effusion and a stable non-solid nodularity of the left upper lung. The patient was admitted to the hospital for management of her COPD exacerbation and pneumonia. Legionella pneumococcal antigens were negative as well as influenza A and B. The patient had significant improvement with antibiotics, steroids, and bronchodilators, and at this point, she is back on the room air during the day with exertion and she continues to wear her supplemental oxygen overnight. During the hospital stay, the patient had a blood pressure that was in the lower side for her probably in the setting of infection. So, we decreased her metoprolol from 50 to 25 mg p.o. daily for now, but as she continues to improve , her PCP will monitor her blood pressure and increase the metoprolol dose as needed. The patient is medically stable to be discharged home today to follow up with Dr. Martinez as outpatient. PHYSICAL EXAMINATION: Vital Signs: Temperature 97.8, heart rate is 75, respiratory rate is 20, oxygen saturation 96% on room air, blood pressure is 99/ 68. General: The patient is a pleasant elderly lady, sitting up in the chair, in no acute distress. CV: S1 and S2. Regular rate and rhythm. Chest: Breath sounds present bilaterally, no added sounds. Abdomen: Soft, bowel sounds present. Extremities: No edema. Neuro: She is alert, awake, oriented x3. Able to move all 4 extremities. DIET: Regular diet. ACTIVITY: As tolerated. DISPOSITION: To home. STATUS DURING HOSPITAL: Observation. CONDITION AT THE TIME OF DISCHARGE: Fair. Please keep in mind that this is a summarized version of this patient's hospital stay. If you need more information, please feel free to call me at or please obtain the full medical records. TIME SEEN: Approximately, 45 minutes was spent to complete this discharge. [id number]/CPS #: [id number] MTDD
== END 2019-01-11 13:25 | disposition home or self-care (01) ==
LOC: ED 11:11 → MED 15:27
PROVIDERS: ADMIT Internal Medicine; ATTEND Internal Medicine
DX: J96.21 Acute and chronic respiratory failure with hypoxia (principal); J18.9 Pneumonia, unspecified organism; J44.1 Chronic obstructive pulmonary disease with (acute) exacerbation; E03.9 Hypothyroidism, unspecified; E78.5 Hyperlipidemia, unspecified; I10 Essential (primary) hypertension; Z85.118 Personal history of other malignant neoplasm of bronchus and lung; Z85.3 Personal history of malignant neoplasm of breast; I25.10 Atherosclerotic heart disease of native coronary artery without angina pectoris; I35.0 Nonrheumatic aortic (valve) stenosis; Z79.899 Other long term (current) drug therapy; I25.2 Old myocardial infarction; E78.00 Pure hypercholesterolemia, unspecified; K21.9 Gastro-esophageal reflux disease without esophagitis; G25.81 Restless legs syndrome; Z79.82 Long term (current) use of aspirin; Z87.891 Personal history of nicotine dependence; F32.9 Major depressive disorder, single episode, unspecified
CPT/HCPCS: 36415; 71046; 71275; 80048; 80053; 83880; 84484; 85025; 85379; 87899; 93005; 96361; 96365; 96366; 96367; 96372; 96375; 99284; A9270-GY; G0378; J0456; J0696; J1644; J2930; J7512; Q9967

== ENCOUNTER 2019-04-01 15:15 | Emergency (ER) | payer MEDICARE ==
--- OUTSIDE RECORDS SUMMARY | 2019-04-01 15:25 | XMS REPORT | Summary of Care ---
:1940 Author Organization [facility] Address [address] [facility] [place] [address] Care Team Providers Name Role Phone Rosanne Martinez MD Primary Care Provider Audie Jameson Unavailable Edgar Billy Unavailable Kendy Marino RN Unavailable Unavailable Reason for Visit Reason Comments Follow Up 3 week follow up Injection Would like shingrix vaccine Encounter Details Date Type Department Care Team Description 02/09/2019 Office Visit [facility] [place], Obstructive chronic bronchitis without exacerbation (HCC) (Primary Dx); Practice Rosanne Lomax MD Need for vaccination; [address] Aortic stenosis, moderate; [place] [address] [place] [address] Hypothyroidism, unspecified type; [phone] Thrush Allergies No Known Allergiesdocumented as of this encounter (statuses as of 02/09/2019) Medications Medication Sig Dispensed Refills Start Date End Date Status aspirin (SB LOW Take 1 Tab by 0 Active DOSE ASA EC) 81 MG mouth DAILY. PO TBEC Ascorbic Acid Take 500 mg by 0 Active (VITAMIN C) 500 MG mouth DAILY. Oral Cap ferrous sulfate Take 1 Tab by 90 Tab 1 04/11/2018 Active 325 (65 Fe) MG mouth DAILY. Oral TabIndications: Anemia, unspecified type Rosuvastatin Take 1 Tab by 90 Tab 3 05/03/2018 Active Calcium (CRESTOR) mouth DAILY. 40 MG Oral TabIndications: Coronary artery disease involving [place] coronary artery of [place] heart without angina pectoris sertraline TAKE ONE TABLET 90 Tab 3 07/26/2018 Active (ZOLOFT) 25 MG BY MOUTH EVERY Oral DAY TabIndications: Depression, unspecified depression type potassium chloride TAKE ONE TABLET 90 Tab 1 09/26/2018 Active (K-TAB) 10 MEQ BY MOUTH EVERY Oral Tab DAY CRIndications: Hypokalemia TRELEGY ELLIPTA INHALE ONE PUFF 1 Each 5 11/27/2018 Active 100-62.5-25 BY MOUTH EVERY MCG/INH Inhalation DAY AEROSOL POWDER, BREATH ACTIVATED levothyroxine Take 1 Tab by 90 Tab 0 12/05/2018 Active (SYNTHROID) 50 MCG mouth BEFORE Oral BREAKFAST. TabIndications: Hypothyroidism, unspecified type oxybutynin TAKE ONE TABLET 90 Tab 2 12/25/2018 Active (DITROPAN XL) 10 BY MOUTH EVERY MG Oral TABLET SR DAY 24 HR metoprolol Take 25 mg by 0 Active succinate (TOPROL mouth DAILY. XL) 25 MG Oral TABLET SR 24 HR famotidine Take 1 Tab by 60 Tab 5 01/15/2019 Active (PEPCID) 20 MG mouth TWICE Oral DAILY. Stop TabIndications: omeprazole Gastritis, presence of bleeding unspecified, unspecified chronicity, unspecified gastritis type albuterol 3 mL by 360 mg 6 01/15/2019 Active (PROVENTIL, Inhalation-SVN VENTOLIN) (2.5 route EVERY SIX MG/3ML) 0.083% HOURS NEEDED Inhalation Nebu (wheezing). SolnIndications: Obstructive chronic bronchitis without exacerbation (HCC) albuterol HFA Take 2 Puffs by 1 Inhaler 11 05/27/2017 02/10/20 Discontinued (VENTOLIN) 108 (90 inhalation 19 (Alternative Base) MCG/ACT EVERY SIX HOURS Therapy) Inhalation Aero NEEDED SolnIndications: (sob). Obstructive chronic bronchitis without exacerbation (HCC) documented as of this encounter (statuses as of 02/09/2019) Active Problems Problem Noted Date Claudication 04/11/2018 [...] LPM q HS through [facility] [place] Centrilobular emphysema 01/17/2006 Carcinoma in situ of breast 12/22/2005 documented as of this encounter (statuses as of 02/09/2019) Resolved Problems Problem Noted Date Resolved Date [...] as of this encounter (statuses as of 02/09/2019) Immunizations Name Administration Dates Next Due Influenza (IM) Preservative Free 12/29/2012 Influenza (IM) W/Pres 01/01/2016 Influenza Vaccine 65 Yrs + 11/23/2018 Influenza Vaccine High Dose 11/23/2017, 12/08/2016, 12/19/2014, 01/02/2014 Influenza Virus Vaccine - Whole 01/09/2008, 12/19/2006 Influenza Virus Vaccine Pres Free 6-35 11/25/2011, 12/04/2010, 12/08/2009 Months Neulasta (6 mg) 06/05/2007, 05/15/2007, 04/24/2007 PNEUMOCOCCAL POLYSACCHARIDE VACCINE 07/12/2017 Pneumococcal Conjugate(13 Valent) 05/05/2016 ZOSTER (SHINGRIX) VACCINE 02/09/2019 documented as of this encounter Social History [...] or relatives? How often do you attend confucianism or Never 03/20/2018 catholic services? Do you belong to any clubs or No 03/20/2018 organizations such as confucianism groups, unions, fraternal or athletic groups, or [...] Sign Reading Time Taken Comments Blood Pressure 130/62 02/09/2019 1:10 PM EST Pulse 61 02/09/2019 1:10 PM EST Temperature 37.1 02/09/2019 1:10 PM EST C (98.7 F) Respiratory Rate 20 02/09/2019 1:10 PM EST Oxygen Saturation 98% 02/09/2019 1:10 PM EST Inhaled Oxygen Concentration - - Weight 45.5 kg (100 lb 6.4 oz) 02/09/2019 1:10 PM EST Height 147.3 cm (4' 10") 02/09/2019 1:10 PM EST Body Mass Index 20.98 02/09/2019 1:10 PM EST documented in this encounter Patient Instructions Patient InstructionsRosanne Martinez MD - 02/09/2019 1:00 PM ESTGlad you are feeling better. Please continue your current medications. We gave your Shingrix #1 today. Please return in 4-5 months for the second one. documented in this encounter Progress Notes Rosanne Martinez MD - 02/09/2019 1:00 PM EST Nursing Notes: Charmaine Anderson LPN 02/09/2019 1:18 PM Signed Chief Complaint Patient presents with Follow Up 3 week follow up Injection Would like shingrix vaccine Chief Complaint: Xiomara Pearce is a 78-y.o. female who presents for follow up of COPD exacerbation and CAP History of Present Illness/ROS: Here for COPD follow up, has been off prednisone 2 weeks, is done with her antibiotic. She feels good. Her thrush is resolved. She would like Shingrix today also. Hospital[facility] at [facility]/09--01/11/19 CTA chest 03/11/18: Negative for pulmonary embolism, stable nodularity MARGI small right plearal effusion, bilateral consolidation Chest xray 01/23: COPD, NAD Influenza swab negative. BNP 175 D-dimer 807 H/H: 11.2/34, WBC 15.1 CMP normal Review of Systems - General ROS: negative for - chills or fever Respiratory ROS: no cough, shortness of breath, or wheezing Cardiovascular ROS: no chest pain or dyspnea on exertion Gastrointestinal ROS: no abdominal pain, change in bowel habits, or black or bloody stools Past Medical History: Diagnosis Date Aortic stenosis, moderate Breast cancer (HCC) lt breast lumpectomy chemotherapy, 2005 CAD (coronary artery disease) s/p OK Chemotherapy chemo and radiation both COPD (chronic obstructive pulmonary disease) (HCC) noted 12/30/06 no longer sees conchita Ordonez, and Dr. Larkin Coronary artery disease 1989 [...] 76% Past Surgical History: Procedure Laterality Date [facility] BREAST BIOPSY 12/01/2015 LAPS SURG URTL SSP F/STRS INCONT 1971 Bladder suspension surgery PA BSO, OMENTECTOMY W/LIYAH 1995 PA MASTECTOMY,PARTIAL, WITH AXILLARY LYMPHADENECTOMY 12/10/05 left SEGMENTAL LUNG RESECTION 2006 Left SEGMENTAL LUNG RESECTION 2007 Right TOTAL ABD.HYSTERECTOMY W/WO REM 1971 age 41 WEDGE RESECTION OF LUNG,SINGLE/ 2007 and 2007, bilateral. Current Outpatient Medications: albuterol (PROVENTIL, VENTOLIN) (2.5 MG/3ML) 0.083% Inhalation Nebu Soln , 3 mL by Inhalation-SVN route EVERY SIX HOURS NEEDED (wheezing)., Disp: 360 mg, Rfl: 6 Ascorbic Acid (VITAMIN C) 500 MG Oral Cap, Take 500 mg by mouth DAILY., Disp: , Rfl: aspirin (SB LOW DOSE ASA EC) 81 MG PO TBEC, Take 1 Tab by mouth DAILY. , Disp: , Rfl: famotidine (PEPCID) 20 MG Oral Tab, Take 1 Tab by mouth TWICE DAILY. Stop omeprazole, Disp: 60 Tab, Rfl: 5 ferrous sulfate 325 (65 Fe) MG Oral Tab, Take 1 Tab by mouth DAILY., Disp: 90 Tab, Rfl: 1 levothyroxine (SYNTHROID) 50 MCG Oral Tab, Take 1 Tab by mouth BEFORE BREAKFAST., Disp: 90 Tab, Rfl: 0 metoprolol succinate (TOPROL XL) 25 MG Oral TABLET SR 24 HR, Take 25 mg by mouth DAILY., Disp: , Rfl: oxybutynin (DITROPAN XL) 10 MG Oral TABLET [...] EVERY DAY, Disp: 90 Tab, Rfl: 3 RAYNA ELLIPTA 100-62.5-25 MCG/INH Inhalation AEROSOL POWDER, BREATH [...] Last attempt to quit: 03/09/2006 Years since quittin.9 Smokeless tobacco: Never Used Substance and Sexual Activity Alcohol use: Yes Comment: social Drug use: Yes Types: Prescription Sexual activity: Not Currently Partners: Male Lifestyle Physical activity: Days per week: 0 days Minutes per session: 0 min Stress: Only a little Relationships Social connections: Talks on phone: More than three times a week Gets together: More than three times a week Attends catholic service: Never Active member of club or [...] 2018 Son 2018 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 Raising a great grandson :heaven 3 adult [...] No Known Problems Son PHYSICAL EXAMINATION: BP 130/62 (BP Location: Left arm, Patient Position: Sitting) | Pulse 61 | Temp 98.7 F (37.1 C) (Tympanic) | Resp 20 | Ht 4' 10" (1.473 m) | Wt 100 lb 6.4 oz (45.5 kg) | SpO2 98% | BMI 20.98 kg/m Physical Examination: General appearance - alert, well appearing, and in no distress Mental status - alert, oriented to person, place, and time, normal mood, behavior, speech, dress, motor activity, and thought processes Eyes - pupils equal, sclera anicteric Neck - supple, no cervical or supraclavicular adenopathy, carotids upstroke normal bilaterally, no bruits, thyroid exam: thyroid is normal in size without nodules or tenderness, no neck masses palpated. Chest/Lungs - clear to auscultation, no wheezes, rales or rhonchi, symmetric air entry, moderate to good aeration Heart - normal rate, regular rhythm, normal S1, S2, no murmurs, rubs, clicks or gallops Abdomen - soft, non tender on palpation, nondistended Neurological - alert, oriented, normal speech, no gross focal findings or movement disorder noted Extremities - dorsalis pedis pulses normal, no pedal edema, no clubbing or cyanosis ASSESSMENT/PLAN: ICD-9-CM ICD-10-CM 1. Obstructive chronic bronchitis without exacerbation (HCC) 491.20 J44.9 2. Need for vaccination V05.9 Z23 PA SHINGRIX (ZOSTER) ADMINISTRATION VACCINE SINGLE 3. Aortic stenosis, moderate 424.1 I35.0 4. Hypothyroidism, unspecified type 244.9 E03.9 5. Thrush 112.0 B37.0 Prior pneumonia and COPD exacerbation are resolved. She is checking thyroid laboratory tests today She follows up with pulmonology and cardiology in March. See me in June for recheck and Shingrix #2 Author: Rosanne Martinez MD 02/09/2019 13:56 documented in this encounter Plan of Treatment Date Type Specialty Care Team Description 03/14/2019 Orders Only Cardiology 03/22/2019 Office Visit Cardiology Edgar Billy MD [address] [place] [address] [phone] 05/24/2019 Office Visit Pulmonary Audie Jameson MD [address] [place] [address] [phone] 06/15/2019 Office Visit Family Practice Rosanne Martinez MD [address] [place] [address] [phone] 07/05/2019 Office Visit Family Practice Rosanne Martinez MD [address] [place] [address] [phone] Name Type Priority Associated Diagnoses Order Schedule ADMINISTRATION VACCINE Procedures Routine Need for vaccination Ordered: 08/2018 SINGLE Health Maintenance Due Date Last Done Comments [...] Summaries. Take all prescribed medications as Self-management Rosanne Epstein MD directed Note: This is an individualized [...] filedocumented in this encounter Visit Diagnoses Diagnosis Obstructive chronic bronchitis without exacerbation (HCC) - Primary Obstructive chronic bronchitis without exacerbation Need for vaccination Need for prophylactic vaccination and inoculation against unspecified single disease Aortic stenosis, moderate Aortic valve disorders Hypothyroidism, unspecified type Thrush Candidiasis of mouth documented in this encounter Insurance Payer Benefit Plan / Subscriber ID Effective Dates Phone Address Type Group PENDING SALE TO [facility] xxxxxxxxx Effective for Medicare TODAYS OPTIONS TODAYS OPTIONS all dates Advantage Guarantor Name Account Type Relation to Date of Phone Billing Patient Address Xiomara Pearce Personal/Family 1940 [address] [phone] [place], [place] (Work) [id number] documented as of this encounter Advance Directives Type Date Recorded 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 yes Order discussed with: Patient Prior provider, Dr. Kendrick, signed form, discussed all options and patient/ surrogate requested and agreed to: DNR/DNI, but will allow bipap trial
--- NOTE | 2019-04-01 15:51 | ED ---
Shortness of Breath - HPI Summary HPI Summary: Patient is a 78 y/o F presenting to the ED for a chief complaint of shortness of breath that began one week ago. Patient reports productive cough, decreased appetite, weight loss, and bilateral LE pain. She denies fever, chest pain, nausea, vomiting, or bilateral LE edema. No aggravating or alleviating factors are reported. PMHx is significant for pneumonia and cardiac murmur. She uses 2.5 L oxygen at home. - History of Current Complaint Chief Complaint: EDShortnessOfBreath Time Seen by Provider: 04/01/19 15:42 Hx Obtained From: Patient Onset/Duration: Sudden Onset, Lasting Days, Still Present Timing: Constant Current Severity: Moderate Dyspnea At: Rest Aggravating Factors: Nothing Alleviating Factors: Nothing Associated Signs & Symptoms: Cough (Productive) - Allergy/Home Medications Allergies/Adverse Reactions: Allergies Allergy/AdvReac Type Severity Reaction Status Date / Time No Known Allergies Allergy Verified 12/13/16 15:48 PMH/Surg Hx/FS Hx/Imm Hx Previously Healthy: Yes Endocrine/Hematology History: Reports: Hx Thyroid Disease Denies: Hx Diabetes Cardiovascular History: Reports: Hx Hypercholesterolemia, Hx Hypertension Respiratory History: Reports: Hx Chronic Obstructive Pulmonary Disease (COPD) - uses 2LNC at home, Hx Lung Cancer - Bilateral, Hx Pneumonia, Other Respiratory Problems/Disorders - HX LUNG AND BREAST CA Denies: Hx Asthma GI History: Reports: Hx Gastroesophageal Reflux Disease Denies: Hx Ulcer History: Denies: Hx Renal Disease Comment Only: Other Problems/Disorders - urge incontinence Musculoskeletal History: Reports: Hx Arthritis - hands and legs, Other Musculoskeletal History - osteopenia Sensory History: Reports: Hx Contacts or Glasses Denies: Hx Legally Blind, Hx Deafness, Hx Hearing Aid Opthamlomology History: Reports: Hx Contacts or Glasses Denies: Hx Legally Blind EENT History: Denies: Hx Deafness - Cancer History Cancer Type, Location and Year: left breast ca, lung ca 2005, 2006(bilateral lungs) - Surgical History Surgical History: Yes Surgery Procedure, Year, and Place: BREAST SURGERY. HYSTERECTOMY. BILATERAL LOBECTOMY - Immunization History Date of Influenza Vaccine: 12/08/16 Infectious Disease History: No Infectious Disease History: Denies: Hx Clostridium Difficile, Hx Hepatitis, Hx Human Immunodeficiency Virus (HIV), Traveled Outside the [place] in Last 30 Days - Family History Known Family History: Positive: Cardiac Disease - DC, Hypertension, Diabetes, Other - Suicide - Social History Occupation: Retired Alcohol Use: Occasionally Alcohol Amount: 2 beers/2weeks Hx Substance Use: No Substance Use Type: Reports: None Hx Tobacco Use: Yes - quit 2012 Smoking Status (MU): Former Smoker Type: Cigarettes Have You Smoked in the Last Year: No Review of Systems Positive: Other - Positive decreased appetite and weight loss. Negative: Fever Negative: Chest Pain Positive: Shortness Of Breath, Cough - Productive Negative: Vomiting, Nausea Positive: Myalgia - Bilateral LE. Negative: Edema - Bilateral LE All Other Systems Reviewed And Are Negative: Yes Physical Exam - Summary Physical Exam Summary: Constitutional: Well-developed, Underweight, Alert. (-) Distressed Skin: Warm, Dry HENT: Normocephalic; Atraumatic Eyes: Conjunctiva normal Neck: Musculoskeletal ROM normal neck. (-) JVD, (-) Stridor, (-) Tracheal deviation Cardio: Rhythm regular, rate normal, Heart sounds normal; Intact distal pulses; The pedal pulses are 2+ and symmetric. Radial pulses are 2+ and symmetric. Murmur noted. Pulmonary/Chest wall: Effort normal. (-) Respiratory distress, Faint wheezing and rales bilaterally. Abd: Soft, (-) tenderness, (-) Distension, (-) Guarding, (-) Rebound Musculoskeletal: (-) Edema Lymph: (-) Cervical adenopathy Neuro: Alert, Oriented x3 Psych: Mood and affect Normal Triage Information Reviewed: Yes Vital Signs On Initial Exam: Initial Vitals Temp Pulse Resp BP Pulse Ox 99.8 F 82 24 103/70 91 04/01/19 15:17 04/01/19 15:17 04/01/19 15:17 04/01/19 15:17 04/01/19 15:17 Vital Signs Reviewed: Yes Procedures - Sedation Patient Received Moderate/Deep Sedation with Procedure: No Diagnostics - Vital Signs Vital Signs Temp Pulse Resp BP Pulse Ox 04/01/19 15:17 99.8 F 82 24 103/70 91 - Laboratory Result Diagrams: 04/01/19 16:02 04/01/19 16:02 Lab Statement: Any lab studies that have been ordered have been reviewed, and results considered in the medical decision making process. - Radiology Chest X-ray Radiology Interpretation Completed By: Radiologist Summary of Radiographic Findings: Chest X-ray IMPRESSION: COPD WITH MILD PULMONARY FIBROTIC CHANGES. NO ACTIVE CARDIOPULMONARY DISEASE. Reviewed by Dr. Estes. - EKG 16:06 Cardiac Rate: NL - 64 BPM EKG Rhythm: Sinus Rhythm ST Segment: Normal Ectopy: None Summary of EKG Findings: EKG at 16:06 shows normal sinus rhythm with 84 BPM, no STEMI. Dr. Estes has reviewed and interpreted this EKG. Course/Dx - Course Course Of Treatment: Patient is a 78 y/o F presenting to the ED for a chief complaint of shortness of breath that began one week ago. Patient reports productive cough, decreased appetite, weight loss, and bilateral LE pain. She denies fever, chest pain, nausea, vomiting, or bilateral LE edema. No aggravating or alleviating factors are reported. PMHx is significant for pneumonia and cardiac murmur. She uses 2.5 L oxygen at home. On exam, faint wheezing and rales bilaterally, regular rhythm, murmur noted, underweight. In the ED course, patient was given albuterol 1 neb INH and IV fluids. EKG at 16: 06 shows normal sinus rhythm with 84 BPM, no STEMI. Chest X-ray IMPRESSION: COPD WITH MILD PULMONARY FIBROTIC CHANGES. NO ACTIVE CARDIOPULMONARY DISEASE. Laboratory abnormal findings: Hgb 10.4, Hct 31, MPV 7.1, absolute monos 1.2, INR 1.26, BUN/Creatinine ratio 23, glucose 129. Patient will be discharged with a diagnosis of COPD. Follow up with PCP in 1-2 days. - Diagnoses Provider Diagnoses: COPD (chronic obstructive pulmonary disease) Discharge ED - Sign-Out/Discharge Documenting (check all that apply): Patient Departure - Discharge - Discharge Plan Condition: Stable Disposition: HOME Patient Education Materials: COPD (Chronic Obstructive Pulmonary Disease) (ED) Referrals: Rosanne Martinez MD [Primary Care Provider] - Additional Instructions: RETURN TO THE EMERGENCY DEPARTMENT FOR CHANGING OR WORSENING SYMPTOMS. Follow up with your primary care physician in 1-2 days. - Billing Disposition and Condition Condition: STABLE Disposition: Home - Attestation Statements Document Initiated by Scribe: Yes Documenting Scribe: Xiomara Amado Provider For Whom Scribe is Documenting (Include Credential): Edvin Estes, DO Scribe Attestation: IXiomara, scribed for Edvin Estes DO on 04/01/19 at 2037. Scribe Documentation Reviewed: Yes Provider Attestation: The documentation as recorded by the scribe, Xiomara Amado accurately reflects the service I personally performed and the decisions made by me, Edvin Estes DO Status of Scribe Document: Viewed
[2019-04-01 16:18] LABS: ABS Lymphocytes 1.4 10^3/ul (1.0-4.8); ABS Monocytes 1.2 10^3/ul (0-0.8); Eosinophil % 0.4 %; Hematocrit 31 % (35-47); Hemoglobin 10.4 g/dL (12.0-16.0); Lymphocyte % 14.8 %; Mean Corpuscular HGB Conc 33 g/dL (31-36); Mean Corpuscular Hemoglobin 28 pg (27-31); Mean Corpuscular Volume 84 fL (80-97); Mean Platelet Volume 7.1 fL (7.4-10.4); Platelet Count 362 10^3/uL (150-450); Red Blood Count 3.71 10^6 /uL (3.70-4.87); Red Cell Distribution Width 15 % (10-15); White Blood Count 9.7 10^3/uL (3.5-10.8)
[2019-04-01 16:20] LABS: INR 1.26 (0.82-1.09)
[2019-04-01 16:26] LABS: Albumin 3.9 g/dL (3.2-5.2); Calcium 9.1 mg/dL (8.6-10.3); EGFR African American 114.8 (>60); EGFR Non-African American 94.9 (>60); Globulin 3.8 g/dL (2-4); Potassium 3.8 mmol/L (3.5-5.0); Total Bilirubin 0.7 mg/dL (0.2-1.0); Total Protein 7.7 g/dL (6.4-8.9)
[2019-04-01 16:28] LABS: Troponin I 0.01 ng/mL (<0.03)
[2019-04-01] MEDS ORDERED: Albuterol/Ipratropium NEB.SOL* Albuterol 2.5 MG/Ipratropium 0.5 MG 3 ML INH ONE (16:49)
[2019-04-01] MEDS ORDERED: NS 0.9% 1000 ML** 1,000 ML IV ONE (17:31)
[2019-04-01 19:33] VITALS: BP 175/98
== END 2019-04-01 19:33 | disposition home or self-care (01) ==
LOC: ED 15:15
DX: J44.9 Chronic obstructive pulmonary disease, unspecified (principal); E07.9 Disorder of thyroid, unspecified; E78.00 Pure hypercholesterolemia, unspecified; I10 Essential (primary) hypertension; K21.9 Gastro-esophageal reflux disease without esophagitis; Z85.3 Personal history of malignant neoplasm of breast; Z85.118 Personal history of other malignant neoplasm of bronchus and lung; Z99.81 Dependence on supplemental oxygen; Z90.710 Acquired absence of both cervix and uterus; Z87.891 Personal history of nicotine dependence
CPT/HCPCS: 36415; 71046; 80053; 83880; 84484; 85025; 85610; 93005; 96360; 99283; A9270-GY

== ENCOUNTER 2020-02-25 09:49 | Observation (INO) ==
[2020-02-25 11:05] LABS: ABS Basophils 0.1 10^3/ul (0-0.2); ABS Eosinophils 0.4 10^3/ul (0-0.6); ABS Lymphocytes 2.5 10^3/ul (1.0-4.8); ABS Monocytes 0.9 10^3/ul (0-0.8); ABS Neutrophils 7.4 10^3/ul (1.5-7.7); Eosinophil % 3.4 %; Hematocrit 37 % (35-47); Hemoglobin 12.5 g/dL (12.0-16.0); Lymphocyte % 22.2 %; Mean Corpuscular HGB Conc 33 g/dL (31-36); Mean Corpuscular Hemoglobin 29 pg (27-31); Mean Corpuscular Volume 86 fL (80-97); Mean Platelet Volume 7.4 fL (7.4-10.4); Platelet Count 271 10^3/uL (150-450); Red Blood Count 4.37 10^6 /uL (3.70-4.87); Red Cell Distribution Width 14 % (10-15); White Blood Count 11.2 10^3/uL (3.5-10.8)
[2020-02-25 11:17] LABS: Activated Partial Thrombo Time 30.1 seconds (26.0-38.0); INR 1.11 (0.82-1.09)
[2020-02-25] MEDS ORDERED: Albuterol HFA INHALER 8 gm MDI INH ONE (11:18)
[2020-02-25 11:44] LABS: Albumin 4.3 g/dL (3.2-5.2); Calcium 9.8 mg/dL (8.6-10.3); Total Bilirubin 0.7 mg/dL (0.2-1.0)
[2020-02-25 11:50] LABS: Albumin/Globulin Ratio 1.3 (1-3); BUN/Creatinine Ratio 12.9 (8-20); C Reactive Protein 3.02 mg/L (<8.01); EGFR African American 78.1 (>60); EGFR Non-African American 64.5 (>60); Globulin 3.2 g/dL (2-4); Total Protein 7.5 g/dL (6.4-8.9)
[2020-02-25 12:01] LABS: Troponin I 0.01 ng/mL (<0.03)
[2020-02-25] MEDS ORDERED: NS 0.9% 500 ml BAG 500 ML IV ONE (12:11)
[2020-02-25] MEDS ORDERED: Dexamethasone IV 4 MG/ML VIAL 1 ml VIAL IV SLOW PU ONE (13:16)
[2020-02-25] MEDS ORDERED: Ondansetron 4 mg VIAL 2 MG/ML 2 ml VIAL IV PRN (16:16)
[2020-02-25] MEDS ORDERED: Albuterol HFA INHALER 8 gm MDI INH PRN (16:50)
[2020-02-25] MEDS ORDERED: NS 0.9% 1000 ml BAG 1,000 ML IV SCH (17:00)
[2020-02-25] MEDS ORDERED: Enoxaparin 40 MG/0.4 ML SYR SUBCUT SCH (18:00)
[2020-02-25] MEDS: Mometasone/Formoter 100/5 MDI INH SCH ×2 (20:32→20:33)
[2020-02-25 21:37] LABS: Hepatitis B Surface Antigen Nonreactive (Nonreactive)
[2020-02-25 21:42] LABS: Hepatitis A Ab IgM Negative (Negative)
[2020-02-25 21:43] LABS: Hepatitis B Core IgM Nonreactive (Nonreactive)
[2020-02-25 21:55] LABS: Hepatitis C Antibody Negative (Negative)
[2020-02-26 06:06] LABS: ALT 47 U/L (7-52); AST 42 U/L (13-39); Albumin 3.9 g/dL (3.2-5.2); Albumin/Globulin Ratio 1.3 (1-3); Alkaline Phosphatase 68 U/L (34-104); Anion Gap 11 mmol/L (2-11); BUN/Creatinine Ratio 21.4 (8-20); Blood Urea Nitrogen 18 mg/dL (6-24); CO2 Carbon Dioxide 22 mmol/L (22-32); Calcium 9.2 mg/dL (8.6-10.3); Chloride 106 mmol/L (101-111); EGFR African American 79.1 (>60); EGFR Non-African American 65.4 (>60); Glucose 252 mg/dL (70-100); Potassium 4.2 mmol/L (3.5-5.0); Sodium 139 mmol/L (135-145); Total Protein 6.9 g/dL (6.4-8.9)
[2020-02-26 06:09] LABS: ABS Lymphocytes 1.4 10^3/ul (1.0-4.8); ABS Monocytes 0.5 10^3/ul (0-0.8); ABS Neutrophils 9.4 10^3/ul (1.5-7.7); Hematocrit 35 % (35-47); Hemoglobin 11.4 g/dL (12.0-16.0); Lymphocyte % 12.4 %; Mean Corpuscular HGB Conc 33 g/dL (31-36); Mean Corpuscular Hemoglobin 29 pg (27-31); Mean Corpuscular Volume 87 fL (80-97); Mean Platelet Volume 7.6 fL (7.4-10.4); Nucleated Red Blood Cells % 0.1; Platelet Count 223 10^3/uL (150-450); Red Cell Distribution Width 15 % (10-15); White Blood Count 11.3 10^3/uL (3.5-10.8)
[2020-02-26] MEDS: Mometasone/Formoter 100/5 MDI INH SCH (08:07)
[2020-02-26] MEDS ORDERED: SPIRIVA Respimat (tiotropium) 2.5 mcg/inh Inhaler INH SCH (09:00)
[2020-02-26] MEDS ORDERED: Potassium Chloride LIQUID 20 MEQ/15 ML LIQUID PO SCH (09:00)
[2020-02-26] MEDS ORDERED: Aspirin EC 81 mg TAB.EC (enteric coated) PO SCH (09:00)
[2020-02-26 15:27] VITALS: BP 140/85
[2020-02-27 20:21] LABS: % Iron Saturation 15 % (15-55); Iron 57 ug/dL (50-212); Total Iron Binding Capacity 379 mcg/dL (250-450); Transferrin 271 mg/dL (203-362); Unsaturated Iron Binding < 364 ug/dL
[2020-02-27 20:29] LABS: Ferritin 36.3 ng/mL (11-307)
== END 2020-02-26 17:25 | disposition home or self-care (01) ==
LOC: ED 09:49 → MED 09:49
PROVIDERS: ADMIT Pediatrics; ATTEND Internal Medicine